=== PATIENT | female | born 1940 | race Hispanic/Latino ===

== ENCOUNTER 2022-12-12 15:11 | Inpatient (IN) | payer OTHER ==
--- OUTSIDE RECORDS SUMMARY | 2022-12-12 15:19 | XMS REPORT | Continuity of Care Document ---
:1940 Author Organization [facility] t Address [address] [facility] [place] [address] [place] [id number] Care Team Providers Name Role Phone SANTO PLEITEZ Primary Care Physician Unavailable FAITH BERRY Attending Clinician Unavailable JOSE HEARN Attending Clinician Unavailable JOSE HEARN Attending Clinician Unavailable Jose Hearn DPM Attending Clinician Rj Aparicio MD Attending Clinician Jose Hearn DPM Attending Clinician Jose Alejandro Seals Attending Clinician Shoaib Phillips MD Attending Clinician Rj Osullivan CRNA Attending Clinician [phone] Omar ADAM, Joshua Sr Attending Clinician [phone] Jose Alejandro Hinkle Attending Clinician [phone] Osman Rowell MD Attending Clinician JANAY SEXTON Attending Clinician Unavailable OSMAN ROWELL Attending Clinician Unavailable GABY PWOELL Attending Clinician Unavailable OSMAN OLVERA Attending Clinician Unavailable JOSE ALEJANDRO SEALS Attending Clinician Unavailable Faith Berry MD Attending Clinician Hayde Attending Clinician Unavailable SHERLY SCHMID Attending Clinician Unavailable BILL HYDE Attending Clinician Unavailable FAITH BERRY Admitting Clinician Unavailable JOSE HEARN Admitting Clinician Unavailable GABY POWELL Admitting Clinician Unavailable Hayde Admitting Clinician Unavailable SHERLY SCHMID Admitting Clinician Unavailable BILL HYDE Admitting Clinician Unavailable Payers Payer Name Policy Type Policy Number Effective Date Expiration Date S katharina MEDICARE A B [id number] 2006 00:00:00 MEDICARE PART A [id number] 2014 \\T\\ B - MEDICARE 00:00:00 GENERIC PPO - [id number] GENERIC PAYOR MEDICARE PART A [id number] 2006 \\T\\ B 00:00:00 Problems Condition Condition Condition Status Onset Resolution Last Treating Co mments Source Name Details Category Date Date Treatment Clinician Date Encounter Encounter Disease Active 2021-08 [facility] for post for post 2-30 Colleg [facility] surgical surgical 00:00: of wound wound 00 Medicin check check e Post-opera Post-opera Disease Active 2021-08 [facility] tive state tive state 2-27 Co llege 00:00: of 00 Medicin e Nonhealing Nonhealing Disease Active 2021-08 [facility] nonsurgica nonsurgica 1-23 Co llege l wound l wound 00:00: of 00 Medicin e Ulcer of Ulcer of Disease Active [facility] r right foot right foot 2-15 [facility]lege with fat with fat 00:00: of layer layer 00 Medicin exposed exposed e Wound Wound Disease Active [facility] eschar of eschar of 2-15 [facility] foot foot 00:00: of 00 Medicin e Hyperlipid Hyperlipid Disease Active 2020-08 [facility] emia emia 1-09 [facility] 00:00: of 00 Medicin e Diabetic Diabetic Disease Recurre 2020-[address] [facility] foot ulcer foot ulcer nce 0-22 [facility] 00:00: Medical 00 Center Pressure Pressure Disease Active [facility] injury of injury of 8-30 [facility] toe of toe of 00:00: of right right 00 Medicin foot, foot, e stage 3 stage 3 Hammertoe Hammertoe Disease Active [facility] of right of right 30 [facility] e foot foot 00:00: of 00 Medicin e Osteoarthr Osteoarthr Disease Active Enrique kennedy itis of itis of 04-26 [place] right foot right foot 00:00: of 00 Medicin e Onychomyco Onychomyco Disease Active [facility]enn[facility] sis sis 04-26 College 00:00: of 00 Medicin e Type 2 Type 2 Disease Active [facility]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 r injury of injury of 04-26 [facility] toe of toe of 00:00: of right right 00 Medicin foot, foot, e stage 3 stage 3 TIA TIA Disease Active [facility] (transient (transient 1-14 [facility] ischemic ischemic 00:00: Medica l attack) attack) 00 Center Hyperkerat Hyperkerat Disease Active Enrique kennedy osis of osis of 03-17 [place] skin skin 00:00: of 00 Medicin e Pressure Pressure Disease Active [facility] ulcer of ulcer of 03-17 [facility] e left foot, left foot, 00:00: of stage 2 stage 2 00 Medicin (HCCode) (HCCode) e Hyperkerat Hyperkerat Disease Active Enrique kennedy osis of osis of 03-17 [place] skin skin 00:00: of 00 Medicin e PAD PAD Disease Active Last (periphera (periphera 11-15 Co llege l artery l artery 00:00: of disease) disease) 00 Medici n e Peripheral Peripheral Disease Active [facility] kenn[facility] vascular vascular 11-15 Colleg e disease disease 00:00: of 00 Medicin e Pressure Pressure Disease Active [facility] ulcer of ulcer of 11-15 Colleg e left foot, left foot, 00:00: of stage 3 stage 3 00 Medicin (HCCode) (HCCode) e Status Status Disease Active 2016-08 [facility] post post 09-24 College partial partial 00:00: of amputation amputation 00 Me dicin of foot, of foot, e left left (HCCode) (HCCode) S/P S/P Disease Active 2016-08 [facility] transmetat transmetat 09-24 Co llmicky arsal arsal 00:00: of amputation amputation 00 Me dicin of foot, of foot, e left left Type 2 Type 2 Disease Active [facility] diabetes diabetes 09-20 Colleg e mellitus mellitus 00:00: of with with 00 Medicin diabetic diabetic e peripheral peripheral angiopathy angiopathy without without gangrene, gangrene, with with long-term long-term current current use of use of insulin insulin Ischemic Ischemic Disease Active Overview: [facility] ulcer ulcer 09-20 [facility] diabetic diabetic 00:00: g of this of foot foot 00 note Medicin (HCCode) (HCCode) might be e different from the original. left lateral foot, lateral plantar angiosome Diabetic Diabetic Disease Recurre [facility] ulcer [facility] ulcer [facility] 04[facility]01 [facility] left foot left foot 00:00: Medi tomasa associated associated 00 Ce nter with type with type 2 diabetes 2 diabetes mellitus mellitus PAD PAD Disease Active [facility] (periphera (periphera 04-01 [facility] l artery l artery 00:00: Medica l disease) disease) 00 Center Stenosis Stenosis Disease Active [facility] of of 04[facility]01 [facility] noncoronar noncoronar 00:00: Me dical y bypass y bypass 00 Center graft, graft, initial initial encounter encounter Hypoglycem Hypoglycem Disease Active 2014-[address] ia ia 09-20 [facility] 00:[facility]: Medical 00 Center 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 Left heel and toes Accelerate Accelerate Disease Active 2014-[address] d d 08-28 [facility] hypertensi hypertensi 00:00: Me dical on on 00 Center Acute Acute Disease Recurre 2014-[address] [facility] kidney kidney nce 0 [facility] insufficie insufficie 00:00: Me dical ncy (RONIT ncy (RONIT 00 Center on CKD) on CKD) Serum Serum Disease Active 2014-[address] [facility] potassium potassium 0-27 [facility] elevated elevated 00:00: Medica l 00 Center Non-healin Non-healin Disease Active 2014-[address] g wound of g wound of 0-27 [facility] lower lower 00:00: Medical extremity extremity 00 Cent er Chronic Chronic Disease Active 2014-[address] osteomyeli osteomyeli 0-27 [facility] tis tis 00:00: Medical 00 [place] Temporal Temporal Disease Active 2014-08 [facility] arteritis arteritis 0-27 [facility] 00:00: Medical 00 [place] Critical Critical Disease Active [facility] lower limb lower limb 7-31 [facility] ischemia ischemia 00:00: Medica l 00 [place] CKD CKD Disease Active [facility] (chronic (chronic 3-22 [facility] kidney kidney 00:00: Medical disease) disease) 00 Center Peripheral Peripheral Disease Active [facility] vascular vascular 3-18 [facility] disease disease 00:00: Medical 00 [place] Varicose Varicose Disease Active [facility] veins veins [facility] [facility] Hypertensi Hypertensi Disease Active [facility] on on [facility] Essential Essential Disease Active [facility] hypertensi hypertensi Co llege on on of Medicin e Diabetes Diabetes Disease Recurre [facility] St mellitus mellitus [facility] Arthritis Arthritis Disease Active [facility] Allergies, Adverse Reactions, Alerts Allergy Allergy Status Severity Reaction(s) Onset Inactive Treating Comm ents Source Name Type Date Date Clinician PENICILL Drug Active High SOB 2014-08 [facility] INS Class 0-13 ity of 00:00: [place] 00 Medical Branch SULFA Drug Active High SOB 2014-08 Univers (SULFONA Class 0-13 ity of MIDE 00:00: [place] ANTIBIOT 00 Medical ICS) Branch SULFA Allergy Active High Sob [facility] (SULFONA 3-18 [facility] MIDE 00:00: Medical ANTIBIOT 00 Center ICS) PENICILL Allergy Active High Sob [facility] INS 3-18 [facility] 00:00: Medical 00 [place] Penicill Drug Active Shortness Of [facility] ins Allergy Breath 3-18 [facility] 00:00: Medical 00 Center Sulfa Drug Active Shortness Of [facility] (Sulfona Allergy Breath 3-18 [facility] mide 00:00: Medical Antibiot 00 Center ics) Sulfa Propensi Active [facility] Antibiot ty to 3-10 College ics adverse 00:00: of reaction 00 Medicin s to e drug Penicill Propensi Active Shortness Of [facility] ins ty to Breath 3-10 College adverse 00:00: of reaction 00 Medicin s to e drug Social History Social Habit Start Date Stop Date Quantity Comments Source History [facility] Alcohol Frequency of Medi cine History [facility] Alcohol Std Drinks of Med icine History [facility] Alcohol Binge of Medicine Alcohol intake 2022-11-29 2022-11-29 Ex-drinker [facility] 00:00:00 00:00:00 (finding) Medical Center Exposure to 2022-11-14 2022-11-[address] [facility] SARS-CoV-2 (event) 00:00:00 08:31:00 [facility] Tobacco use and 2022-11-21 2022-11-[address] [facility] exposure 00:00:00 00:00:00 non-user [facility] Alcohol Comment 2013-11-04 2013-11-04 social drinker [facility] 00:00:00 00:00:00 of Medicine Sex Assigned At [address] [facility] 00:00:00 00:00:00 [facility] Center Smoking Status Start Date Stop Date Source Never smoked tobacco [facility] Medications Ordered Filled Start Stop Current Ordering Indication Dosage Frequency Signature Comments Components Source Medication Medication Date Date Medication? Clinician (SIG) Name Name latanoprost Yes 1[drp] QD Place [address] (XALATAN) 3-30 drop into [facility] 0.005 % 13:00: both eyes Medic al ophthalmic 31 nightly. Cente r solution lisinopril Yes 10mg QD Take 1 [facility] (PRINIVIL,Z 3-30 tablet (10 [facility] ESTRIL) 10 13:00: mg total) Me dical MG tablet 31 by mouth Center in the morning. atorvastati Yes 40mg QD Take [address] [facility] n (LIPITOR) 3-30 tablet (40 [facility] 40 MG 13:00: mg total) Medical tablet 31 by mouth Center nightly. amLODIPine 0 Yes 5mg QD Take 1 [facility] (NORVASC) 5 3-30 tablet (5 [facility] MG tablet 13:00: mg total) Med ical 31 by mouth Center in the morning. acetaminoph Yes 650mg Take [address] [facility] [facility] en 3-30 tablets [facility] (TYLENOL) 13:00: (650 mg Medic al 325 MG 31 total) by Center tablet mouth every 6 (six) hours as needed for Pain. calcium Yes Take by [facility] St carb/magnes 3-30 mouth as [facility] ium hydrox 13:00: needed . Med ical (ROLAIDS 31 Center ORAL) gabapentin Yes 100mg Q.5D Take [address] [facility] (NEURONTIN) 3-30 capsule [facility] 100 MG 13:00: (100 mg Medical capsule 31 total) by Center mouth in the morning and 1 capsule (100 mg total) before bedtime. guaiFENesin Yes 200mg Take [address] (ROBITUSSIN 3-30 mLs (200 [facility] ) 100 mg/5 13:00: mg total) Me dical mL syrup 31 by mouth 3 Cente r (three) times daily as needed for Cough. losartan Yes QD Take by [facility] (COZAAR) 50 3-30 mouth [facility] MG tablet 13:00: daily. Medica l 31 Center miscellaneo Yes Dispense [facility] us medical 3-30 and apply [facility] supply Misc 00:00: post op Med ical 00 shoe right [place] Jose Hearn DPM. losartan Yes 50mg Take 1 Last (COZAAR) 50 3-13 Tablet by Col lege MG tablet 10:02: mouth of 12 daily. Medicin e losartan Yes Take by Last (COZAAR) 25 3-13 mouth. Colleg e MG tablet 10:02: of 12 Medicin e losartan 2021-08 Yes 50mg Take 50 mg [facility] (COZAAR) 50 2-20 by mouth [facility] MG tablet 15:01: daily. of Medicin e losartan 2021-08 Yes Take by [facility] (COZAAR) 25 2-20 mouth. Colleg e MG tablet 15:01: of 27 Medicin e losartan 2021-08 Yes 50mg Take 50 mg [facility] (COZAAR) 50 2-20 by mouth [facility] MG tablet 15:01: daily. of 27 Medicin e losartan 2021-08 Yes Take by Last (COZAAR) 25 2-20 mouth. Colleg e MG tablet 15:01: of 27 Medicin e clindamycin 2021-08 Yes 300mg Take 1 Last (CLEOCIN) 2-09 capsule by [facility] 300 MG 00:00: mouth 3 of capsule 00 times Medicin daily. e Take 1 capsule by mouth three times a day for seven days minocycline 2021-08 Yes [id number] Take one [facility] (DYNACIN) 2-09 tablet College 100 MG 00:00: twice a of tablet 00 day for 10 Medicin days e clindamycin 2021-08 Yes 300mg Take 1 [facility] (CLEOCIN) 2-09 capsule by [facility] 300 MG 00:00: mouth 3 of capsule 00 times Medicin daily. e Take 1 capsule by mouth three times a day for seven days minocycline 2021-08 Yes Take one [facility] (DYNACIN) 2-09 tablet College 100 MG 00:00: twice a of tablet 00 day for 10 Medicin days e clindamycin 2021-08 Yes [id number] 300mg Take 1 Last (CLEOCIN) 2-09 capsule by [facility] 300 MG 00:00: mouth 3 of capsule 00 times Medicin daily. e Take 1 capsule by mouth three times a day for seven days minocycline 2021-08 Yes Take one Last (DYNACIN) 2-09 tablet College 100 MG 00:00: twice a of tablet 00 day for 10 Medicin days e clindamycin 2021-08 Yes Take one Last (CLEOCIN) 2-02 tablet College 300 MG 00:00: three of capsule 00 times Medicin daily for e ten days tramadol 2021-08 Yes [id number] 1{tbl} Take 1 [facility] (ULTRAM) 50 2-02 Tablet by Col [facility] MG tablet 00:00: mouth of 00 every 8 Medicin hours as e needed for Pain. clindamycin 2021-08 Yes Take one [facility] (CLEOCIN) 2-02 tablet College 300 MG 00:00: three of capsule 00 times Medicin daily for e ten days tramadol 2021-08 Yes [id number] 1{tbl} Take 1 [facility] (ULTRAM) 50 2-02 Tablet by Col [facility] MG tablet 00:00: mouth of 00 every 8 Medicin hours as e needed for Pain. clindamycin 2021-08 Yes [id number] Take one Last (CLEOCIN) 2-02 tablet College 300 MG 00:00: three of capsule 00 times Medicin daily for e ten days tramadol 2021-08 Yes [id number] 1{tbl} Take 1 [facility] (ULTRAM) 50 2-02 Tablet by Col [facility] MG tablet 00:00: mouth of 00 every 8 Medicin hours as e needed for Pain. losartan 2021-08 Yes 50mg Take 50 mg [facility] (COZAAR) 50 1-22 by mouth [facility] MG tablet 14:46: daily. of 43 Medicin e losartan 2021-08 Yes 50mg Take 50 mg [place] [facility] (COZAAR) 50 1-22 by mouth [facility] MG tablet 14:46: daily. of 43 Medicin e losartan 2021-08 Yes 50mg Take 50 mg [place] [facility] (COZAAR) 50 1-22 by mouth [facility] MG tablet 14:46: daily. of 43 Medicin e clindamycin 2021-08 Yes [id number] Take one Last (CLEOCIN) 1-11 tablet College 300 MG 00:00: three of capsule 00 times Medicin daily for e ten days clindamycin 2021-08 Yes [id number] Take one Last (CLEOCIN) 1-11 tablet College 300 MG 00:00: three of capsule 00 times Medicin daily for e ten days clindamycin 2021-08 Yes [id number] Take one Last (CLEOCIN) 1-11 tablet College 300 MG 00:00: three of capsule 00 times Medicin daily for e ten days losartan 2021-08 Yes 50mg Take 50 mg [place] (COZAAR) 50 0-21 by mouth [facility] MG tablet 14:16: daily. of 49 Medicin e losartan Yes 50mg Take 50 mg [place] [facility] (COZAAR) 50 9-21 by mouth [facility] MG tablet 13:58: daily. of 29 Medicin e mupirocin 2022-0 Yes [id number] Apply 2 [facility] (BACTROBAN) 9-09 grams to [facility] 2 % 00:00: wound of ointment 00 daily Medicin e mupirocin 2022-0 Yes [id number] Apply 2 Last (BACTROBAN) 9-09 grams to [facility] 2 % 00:00: wound of ointment 00 daily Medicin e mupirocin 2022-0 Yes [id number] Apply 2 Last (BACTROBAN) 9-09 grams to [facility] 2 % 00:00: wound of ointment 00 daily Medicin e mupirocin 2022-0 Yes [id number] Apply 2 Last (BACTROBAN) 9-09 grams to [facility] 2 % 00:00: wound of ointment 00 daily Medicin e mupirocin 2022-0 Yes [id number] Apply 2 [facility] (BACTROBAN) 9-09 grams to [facility] 2 % 00:00: wound of ointment 00 daily Medicin e mupirocin 2022-0 Yes [id number] Apply 2 Last (BACTROBAN) 9-09 grams to [facility] 2 % 00:00: wound of ointment 00 daily Medicin e mupirocin 2022-0 Yes [id number] Apply 2 [facility] (BACTROBAN) 9-09 grams to [facility] 2 % 00:00: wound of ointment 00 daily Medicin e mupirocin 2022-0 Yes [id number] Apply 2 [facility] (BACTROBAN) 9-09 grams to [facility] 2 % 00:00: wound of ointment 00 daily Medicin e mupirocin 2022-0 Yes [id number] Apply 1 [facility] calcium 8-26 gram to College (BACTROBAN) 00:00: wounds of 2 % cream 00 daily Medicin e mupirocin 2022-0 Yes [id number] Apply 1 [facility] calcium 8-26 gram to College (BACTROBAN) 00:00: wounds of 2 % cream 00 daily Medicin e mupirocin 2022-0 Yes [id number] Apply 1 [facility] calcium 8-26 gram to College (BACTROBAN) 00:00: wounds of 2 % cream 00 daily Medicin e mupirocin 2021-0 Yes [id number] Apply 1 Last calcium 8-26 gram to College (BACTROBAN) 00:00: wounds of 2 % cream 00 daily Medicin e mupirocin 2021-0 Yes [id number] Apply 1 [facility] calcium 8-26 gram to College (BACTROBAN) 00:00: wounds of 2 % cream 00 daily Medicin e mupirocin 2021-0 Yes [id number] Apply 1 [facility] calcium 8-26 gram to College (BACTROBAN) 00:00: wounds of 2 % cream 00 daily Medicin e mupirocin 2021-0 Yes [id number] Apply 1 Last calcium 8-26 gram to College (BACTROBAN) 00:00: wounds of 2 % cream 00 daily Medicin e mupirocin 2021-0 Yes [id number] Apply 1 [facility] calcium 8-26 gram to College (BACTROBAN) 00:00: wounds of 2 % cream 00 daily Medicin e losartan 0 Yes 50mg Take 50 mg [facility] (COZAAR) 50 7-05 by mouth [facility] MG tablet 16:21: daily. of 50 Medicin e losartan 2021-0 Yes 50mg Take 50 mg [place] (COZAAR) 50 7-05 by mouth [facility] MG tablet 16:21: daily. of 50 Medicin e losartan 2021-0 Yes 50mg Take 50 mg [facility] (COZAAR) 50 5-03 by mouth [facility] MG tablet 13:24: daily. of 12 Medicin e losartan 2021-0 Yes 50mg Take 50 mg [place] (COZAAR) 50 3-22 by mouth [facility] MG tablet 13:49: daily. of 06 Medicin e collagenase 2021-0 Yes [id number] Please [facility] 250 UNIT/GM 3-22 apply to [facility] ointment 00:00: right of 00 lateral Medicin foot daily e collagenase 2021-0 Yes [id number] Apply to [facility] 250 UNIT/GM 3-22 affected [facility] ointment 00:00: wound of 00 daily, Medicin Wound e measuremen t 2.5 cm X 2.0 cm collagenase 2021-0 Yes [id number] Please Last 250 UNIT/GM 3-22 apply to [facility] ointment 00:00: right of 00 lateral Medicin foot daily e collagenase 2022-0 Yes [id number] Please Last 250 UNIT/GM 3-22 apply to [facility] ointment 00:00: right of 00 lateral Medicin foot daily e collagenase 2022-0 Yes [id number] Please Last 250 UNIT/GM 3-22 apply to [facility] ointment 00:00: right of 00 lateral Medicin foot daily e collagenase 2022-0 Yes [id number] Please Last 250 UNIT/GM 3-22 apply to [facility] ointment 00:00: right of 00 lateral Medicin foot daily e collagenase 2022-0 Yes [id number] Please [facility] 250 UNIT/GM 3-22 apply to [facility] ointment 00:00: right of 00 lateral Medicin foot daily e collagenase 2022-0 Yes [id number] Please [facility] 250 UNIT/GM 3-22 apply to [facility] ointment 00:00: right of 00 lateral Medicin foot daily e collagenase 2022-0 Yes [id number] Please [facility] 250 UNIT/GM 3-22 apply to [facility] ointment 00:00: right of 00 lateral Medicin foot daily e collagenase 2022-0 Yes [id number] Please [facility] 250 UNIT/GM 3-22 apply to [facility] ointment 00:00: right of 00 lateral Medicin foot daily e collagenase 2022-0 Yes [id number] Please [facility] 250 UNIT/GM 3-22 apply to [facility] ointment 00:00: right of 00 lateral Medicin foot daily e collagenase 2022-0 Yes [id number] Please [facility] 250 UNIT/GM 3-22 apply to [facility] ointment 00:00: right of 00 lateral Medicin foot daily e collagenase 2022-0 Yes [id number] Please Last 250 UNIT/GM 3-22 apply to [facility] ointment 00:00: right of 00 lateral Medicin foot daily e collagenase 2022-0 202- No [id number] Apply to [facility] 250 UNIT/GM 3-22 -03 affected [facility] ointment 00:00: 00:00 wound of 00 :00 daily, Medicin Wound e measuremen t 2.5 cm X 2.0 cm clindamycin 2021-0 202- No [id number] 300mg Take 1 [facility] (CLEOCIN) 3- 04-02 capsule by [facility] 300 MG 00:00: 04:59 mouth 3 of capsule 00 :00 times Medicin daily for e 10 days. losartan Yes 50mg Take 50 mg [facility] (COZAAR) 50 2-09 by mouth [facility] MG tablet 13:20: daily. of 39 Medicin e losartan Yes 50mg Take 50 mg [place] [facility] (COZAAR) 50 -27 by mouth [facility] MG tablet 09:47: daily. of 59 Medicin e ciprofloxac 2021- No 500mg Take 500 Last in (CIPRO) 09-23 01-27 mg by [place] 500 MG/5ML 09:47: 00:00 mouth two o f (10%) 52 :00 times Medicin suspension daily. e collagenase Yes Apply to [facility] 250 UNIT/GM 09-23 affected [facility] ointment 00:00: wound of 00 daily, Medicin Wound e measuremen t 2.5 cm X 2.0 cm collagenase Yes Apply to [facility] 250 UNIT/GM 27 affected [facility] ointment 00:00: wound of 00 daily, Medicin Wound e measuremen t 2.5 cm X 2.0 cm collagenase 2021- No Apply to [facility] 250 UNIT/GM 27 - affected [facility] ointment 00:00: 00:00 wound of 00 :00 daily, Medicin Wound e measuremen t 2.5 cm X 2.0 cm clindamycin 2021- No [id number] 300mg Take 1 [facility] (CLEOCIN) - 02-07 [id number] capsule by [facility] 300 MG 00:00: 05:59 mouth 3 of capsule 00 :00 times Medicin daily for e 10 days. ciprofloxac 2020-08 Yes 500mg Take 500 [facility] in (CIPRO) 2-07 mg by [place] 500 MG/5ML 13:20: mouth two of (10%) 02 times Medicin suspension daily. e losartan 2020-08 Yes 50mg Take 50 mg [place] (COZAAR) 50 2-07 by mouth [facility] MG tablet 13:16: daily. of 36 Medicin e losartan 2020-08 Yes 50mg Take 50 mg [place] (COZAAR) 50 09-19 by mouth [facility] MG tablet 15:43: daily. of 45 Medicin e lisinopril 2020-08- No [id number] 10mg Take 10 mg Last (PRINIVIL, 09-19 by mouth [facility] ZESTRIL) 10 15:43: 00:00 daily. of MG tablet 36 :00 Medicin e ciprofloxac 2020-08- No [id number] 500mg Take 1 [facility] in (CIPRO) 09-19 1204 Tablet by [facility] 500 MG 00:00: 05:59 mouth two of tablet 00 :00 times Medicin daily for e 10 days. mupirocin 2020-08 Yes [id number] Apply to [facility] (BACTROBAN) 1-15 right foot Co llege 2 % 00:00: daily with of ointment 00 wound care Medic in e mupirocin 2020-08 Yes [id number] Apply to [facility] (BACTROBAN) 1-15 right foot Co llege 2 % 00:00: daily with of ointment 00 wound care Medic in e mupirocin 2020-08 Yes [id number] Apply to [facility] (BACTROBAN) 1-15 right foot Co llege 2 % 00:00: daily with of ointment 00 wound care Medic in e mupirocin 2020-08- No [id number] Apply to [facility] (BACTROBAN) 1 02-09 right foot C ollege 2 % 00:00: 00:00 daily with of ointment 00 :00 wound care Medic in e mupirocin 2020-08- No [id number] 1{appli [facility] (BACTROBAN) 09-05 11-10 cation} [facility] 2 % 22:45: 10:44 of ointment 1 00 :00 Medicin application e lisinopril 2020-08 Yes [id number] 10mg Take 10 mg Last (PRINIVIL, 09-05 by mouth Colle ge ZESTRIL) 10 15:19: daily. of MG tablet 05 Medicin e lisinopril 2020-08 Yes [id number] 10mg Take 10 mg [facility] (PRINIVIL, 09 by mouth [facility] ZESTRIL) 10 15:19: daily. of MG tablet 05 Medicin e lisinopril 2020-08 Yes [id number] 10mg Take 10 mg Last (PRINIVIL, 09 by mouth [facility] ZESTRIL) 10 15:19: daily. of MG tablet 05 Medicin e aspirin 81 2020-08 Yes 81mg QD Take [address] mg Cap 0-22 by mouth [facility]: daily. [address] Aspirin 2020-08 Yes 81mg Take 81 mg [facility] (VAZALORE) 0-22 by mouth. [facility] 81 MG CAPS 00:00: of Medicin e Aspirin 2020-08 Yes 81mg Take 81 mg [facility] (VAZALORE) 0-22 by mouth. [facility] 81 MG CAPS 00:00: of Medicin e Aspirin 2020-08 Yes 81mg Take 81 mg [facility] (VAZALORE) 0-22 by mouth. [facility] 81 MG CAPS 00:00: of 00 Medicin e Aspirin 2020-08 Yes 81mg Take 81 mg [facility] (VAZALORE) 0-22 by mouth. [facility] 81 MG CAPS 00:00: of 00 Medicin e Aspirin 2020-08 Yes 81mg Take 81 mg [facility] (VAZALORE) 0-22 by mouth. [facility] 81 MG CAPS 00:00: of 00 Medicin e Aspirin 2020-08 Yes 81mg Take 81 mg [facility] (VAZALORE) 0-22 by mouth. [facility] 81 MG CAPS 00:00: of 00 Medicin e Aspirin 2020-08 Yes 81mg Take 81 mg [facility] (VAZALORE) 0-22 by mouth. [facility] 81 MG CAPS 00:00: of 00 Medicin e Aspirin 2020-08 Yes 81mg Take 81 mg [facility] (VAZALORE) 0-22 by mouth. [facility] 81 MG CAPS 00:00: of 00 Medicin e Aspirin 2020-08 Yes 81mg Take 81 mg [facility] (VAZALORE) 0-22 by mouth. [facility] 81 MG CAPS 00:00: of 00 Medicin e Aspirin 2020-08 Yes 81mg Take 81 mg [facility] (VAZALORE) 0-22 by mouth. [facility] 81 MG CAPS 00:00: of 00 Medicin e Aspirin 2020-08 Yes 81mg Take 81 mg [facility] (VAZALORE) 0-22 by mouth. [facility] 81 MG CAPS 00:00: of Medicin e Aspirin 2020-08 Yes 81mg Take 81 mg [facility] (VAZALORE) 0-22 by mouth. [facility] 81 MG CAPS 00:00: of Medicin e Aspirin 2020-08 Yes 81mg Take 81 mg [facility] (VAZALORE) 0-22 by mouth. [facility] 81 MG CAPS 00:00: of Medicin e Aspirin 2020-08 Yes 81mg Take 81 mg [facility] (VAZALORE) 0-22 by mouth. [facility] 81 MG CAPS 00:00: of Medicin e Aspirin 2020-08 Yes 81mg Take 81 mg [facility] (VAZALORE) 0-22 by mouth. [facility] 81 MG CAPS 00:00: of Medicin e Aspirin 2020-08 Yes 81mg Take 81 mg [facility] (VAZALORE) 0-22 by mouth. [facility] 81 MG CAPS 00:00: of Medicin e Aspirin 2020-08 Yes 81mg Take 81 mg [facility] (VAZALORE) 0-22 by mouth. [facility] 81 MG CAPS 00:00: of Medicin e Aspirin 2020-08 Yes 81mg Take 81 mg [facility] (VAZALORE) 0-22 by mouth. [facility] 81 MG CAPS 00:00: of Medicin e Aspirin 2020-08 Yes 81mg Take 81 mg [facility] (VAZALORE) 0-22 by mouth. [facility] 81 MG CAPS 00:00: of 00 Medicin e lisinopril Yes [id number] 10mg Take 10 mg Last (PRINIVIL, 04-23 by mouth [facility] ZESTRIL) 10 10:24: daily. of MG tablet Medicin e Insulin 2020- No [id number] Inject [facility] Detemir 04-23 into [facility] (LEVEMIR 10:24: 00:00 skin. of ID) 08 :00 Medicin e collagenase 2021-0 Yes Apply to [facility] 250 UNIT/GM 8-27 affected [facility] ointment 00:00: wound of 00 daily, Medicin Wound e measuremen t 1.0cm X 1.5cm collagenase 2021-0 Yes Apply to [facility] 250 UNIT/GM 8-27 affected [facility] ointment 00:00: wound of 00 daily, Medicin Wound e measuremen t 1.0cm X 1.5cm collagenase 202-0 Yes Apply to [facility] 250 UNIT/GM 8-27 affected [facility] ointment 00:00: wound of 00 daily, Medicin Wound e measuremen t 1.0cm X 1.5cm collagenase 2020-0 Yes Apply to [facility] 250 UNIT/GM 8-27 affected [facility] ointment 00:00: wound of 00 daily, Medicin Wound e measuremen t 1.0cm X 1.5cm collagenase 2021-0 Yes Apply to [facility] 250 UNIT/GM 8-27 affected [facility] ointment 00:00: wound of 00 daily, Medicin Wound e measuremen t 1.0cm X 1.5cm collagenase 2020-0 Yes Apply to [facility] 250 UNIT/GM 8-27 affected [facility] ointment 00:00: wound of 00 daily, Medicin Wound e measuremen t 1.0cm X 1.5cm collagenase 1-0 2021- No Apply to [facility] 250 UNIT/GM 8-27 -27 affected [facility] ointment 00:00: 00:00 wound of 00 :00 daily, Medicin Wound e measuremen t 1.0cm X 1.5cm lisinopril 2020-0 Yes [id number] 10mg Take 10 mg Last (PRINIVIL, 6-30 by mouth [facility] ZESTR[facility]) 10 10:07: daily. of MG tablet 00 Medicin e Insulin 2020-0 Yes [id number] Inject [facility] Detemir 6-30 into [facility] (LEVEMIR 10:07: skin. of [place]) 00 Medicin e lisinopril 2020-0 Yes [id number] 10mg Take 10 mg [facility] (PRINIVIL, 3-31 by mouth [facility] ZESTRIL) 10 13:46: daily. of MG tablet 30 Medicin e Insulin Yes [id number] Inject [facility] Detemir 3-31 into [facility] (LEVEMIR 13:46: skin. of ID) 30 Medicin e latanoprost 2020- No [id number] 1[drp] 1 Drop [facility] (XALATAN) 11-25 every College 0.005 % 13:46: 00:00 evening. of ophthalmic 30 :00 Medicin solution e guaifenesin 2020- No 200mg Take 200 [facility] (ROBITUSSIN 11-25 mg by Colleg e ) 100 13:46: 00:00 mouth. of MG/5ML 29 :00 Medicin syrup e clindamycin 2020- No TAKE 1 [facility] (CLEOCIN) 10-23 CAPSULE BY [facility]ge 300 MG 00:00: 00:00 MOUTH of capsule 00 :00 THREE Medicin TIMES A e DAY ondansetron 2020- No DISSOLVE 1 [facility] (ZOFRAN-ODT 10-23 TABLET BY Co kailey ) 8 mg 00:00: 00:00 MOUTH of disintegrat 00 :00 TWICE A Medic in ing tablet DAY e NEEDED FOR NAUSEA lisinopril 2019-08 Yes [id number] 10mg Take 10 mg Last (PRINIVIL, 0-15 by mouth [facility] ZESTRIL) 10 20:33: daily. of MG tablet 27 Medicin e latanoprost 2019-08 Yes [id number] 1[drp] 1 Drop [facility] (XALATAN) 0-15 every College 0.005 % 20:33: evening. of ophthalmic 27 Medicin solution e Insulin 2019-08 Yes [id number] Inject [facility] Detemir 0-15 into [facility] (LEVEMIR 20:33: skin. of ID) 27 Medicin e gabapentin Yes TAKE 2 [facility] (NEURONTIN) 8-24 CAPSULES [facility] 100 MG 00:00: BY MOUTH of capsule 00 TWICE A Medicin DAY e gabapentin Yes TAKE 2 [facility] (NEURONTIN) 8-24 CAPSULES [facility] 100 MG 00:00: BY MOUTH of capsule 00 TWICE A Medicin DAY e gabapentin Yes TAKE 2 [facility] (NEURONTIN) 8-24 CAPSULES [facility] 100 MG 00:00: BY MOUTH of capsule 00 TWICE A Medicin DAY e gabapentin 2020-0 Yes TAKE 2 [facility] (NEURONTIN) 8-24 CAPSULES [facility] 100 MG 00:00: BY MOUTH of capsule 00 TWICE A Medicin DAY e gabapentin 2020-0 Yes TAKE 2 [facility] (NEURONTIN) 8-24 CAPSULES [facility] 100 MG 00:00: BY MOUTH of capsule 00 TWICE A Medicin DAY e gabapentin 2020-0 Yes TAKE 2 [facility] (NEURONTIN) 8-24 CAPSULES [facility] 100 MG 00:00: BY MOUTH of capsule 00 TWICE A Medicin DAY e gabapentin 2020-0 Yes TAKE 2 [facility] (NEURONTIN) 8-24 CAPSULES [facility] 100 MG 00:00: BY MOUTH of capsule 00 TWICE A Medicin DAY e gabapentin 2020-0 Yes TAKE 2 [facility] (NEURONTIN) 8-24 CAPSULES [facility] 100 MG 00:00: BY MOUTH of capsule 00 TWICE A Medicin DAY e gabapentin 2020-0 Yes TAKE 2 [facility] (NEURONTIN) 8-24 CAPSULES [facility] 100 MG 00:00: BY MOUTH of capsule 00 TWICE A Medicin DAY e gabapentin 2020-0 Yes 100mg 100 mg two [facility] (NEURONTIN) 8-24 times College 100 MG 00:00: daily. of capsule 00 Medicin e gabapentin 2020-0 Yes 100mg 100 mg two [facility] (NEURONTIN) 8-24 times College 100 MG 00:00: daily. of capsule 00 Medicin e gabapentin 2020-0 Yes 100mg 100 mg two [facility] (NEURONTIN) 8-24 times College 100 MG 00:00: daily. of capsule 00 Medicin e gabapentin 2020-0 Yes 100mg 100 mg two [facility] (NEURONTIN) 8-24 times College 100 MG 00:00: daily. of capsule 00 Medicin e gabapentin 2020-0 Yes 100mg 100 mg two [facility] (NEURONTIN) 8-24 times College 100 MG 00:00: daily. of capsule 00 Medicin e gabapentin 2020-0 Yes 100mg 100 mg two [facility] (NEURONTIN) 8-24 times College 100 MG 00:00: daily. of capsule 00 Medicin e gabapentin 2020-0 Yes 100mg 100 mg two Last (NEURONTIN) 8-24 times College 100 MG 00:00: daily. of capsule 00 Medicin e gabapentin 2020-0 Yes 100mg 100 mg two [facility] (NEURONTIN) 8-24 times College 100 MG 00:00: daily. of capsule 00 Medicin e gabapentin 2020-0 Yes 100mg 100 mg two Last (NEURONTIN) 8-24 times College 100 MG 00:00: daily. of capsule 00 Medicin e gabapentin 2020-0 Yes 100mg 100 mg two Last (NEURONTIN) 8-24 times College 100 MG 00:00: daily. of capsule 00 Medicin e gabapentin 2020-0 Yes 100mg 100 mg two [facility] (NEURONTIN) 8-24 times College 100 MG 00:00: daily. of capsule 00 Medicin e gabapentin 2020-0 Yes 100mg 100 mg two [facility] (NEURONTIN) 8-24 times College 100 MG 00:00: daily. of capsule 00 Medicin e gabapentin 2020-0 Yes 100mg 100 mg two Last (NEURONTIN) 8-24 times College 100 MG 00:00: daily. of capsule 00 Medicin e gabapentin 2020-0 Yes 100mg 1 capsule [facility] (NEURONTIN) 824 two times [facility] 100 MG 00:00: daily. of capsule 00 Medicin e AMLODIPINE 2019-0 2020- No Take by [facility] BESYLATE OR 04-08-12 mouth. [facility]le ge 15:45: 00:00 of 34 :00 Medicin e ATORVASTATI 2019-0 2020- No Take by [facility] N CALCIUM 04-08-12 mouth. College OR 15:45: 00:00 of 31 :00 Medicin e lisinopril 2019-0 Yes [id number] 10mg Take 10 mg [facility] (PRINIVIL, 1-02 by mouth [facility] ZESTRIL) 10 15:00: daily. of MG tablet 07 Medicin e latanoprost 2019-0 Yes [id number] 1[drp] 1 Drop [facility] (XALATAN) 1-02 every College 0.005 % 15:00: evening. of ophthalmic 07 Medicin solution e Insulin 2019-0 Yes [id number] Inject [facility] Detemir -02 into [facility] (LEVEMIR 15:00: skin. of [place]) 07 Medicin e lisinopril 2018- Yes [id number] 10mg Take 10 mg Last (PRINIVIL, 0-03 by mouth [facility] ZESTRIL) 10 17:05: daily. of MG tablet 58 Medicin e latanoprost 2018-08 Yes [id number] 1[drp] 1 Drop Last (XALATAN) 0-03 every College 0.005 % 17:05: evening. of ophthalmic 58 Medicin solution e Insulin 2018-08 Yes [id number] Inject [facility] Detemir 0-03 into [facility] (LEVEMIR 17:05: skin. of [place]) 58 Medicin e ATORVASTATI 2018-08 Yes Take by [place] [facility] N CALCIUM 0-03 mouth. College OR 17:05: of 58 Medicin e AMLODIPINE 2018-08 Yes Take by [facility] BESYLATE OR 0-03 mouth. Colleg e 17:05: of 58 Medicin e ciprofloxac 2018-08 Yes Apply 4 [facility] in-dexameth 0-03 drops in [facility] asone 00:00: right ear of (CIPRODEX) 00 twice a Medici n otic day for 10 e suspension days. ciprofloxac 2018-08 2020- No Apply 4 [facility] in-dexameth 0-03 08-12 drops in [facility] asone 00:00: 00:00 right ear of (CIPRODEX) 00 :00 twice a Medici n otic day for 10 e suspension days. lisinopril Yes [id number] 10mg Take 10 mg [facility] (PRINIVIL, 9-12 by mouth [facility] ZESTRIL) 10 16:41: daily. of MG tablet 50 Medicin e latanoprost Yes [id number] 1[drp] 1 Drop Last (XALATAN) 9-12 every College 0.005 % 16:41: evening. of ophthalmic 50 Medicin solution e Insulin Yes [id number] Inject [facility] Detemir 9-12 into the [facility] (LEVEMIR 16:41: skin. of SC) 50 Medicin e ATORVASTATI Yes Take by [facility] N CALCIUM 9-12 mouth. College OR 16:41: of 50 Medicin e AMLODIPINE Yes Take by [facility] BESYLATE OR 9-12 mouth. Colleg e 16:41: of 50 Medicin e amlodipine Yes TK 1 T PO [facility] ([facility] 5[place]21 [facility] [place] 00:00: of tablet 00 Medicin e amlodipine Yes TK 1 T [facility] [place] 00:00: of tablet 00 Medicin e amlodipine Yes TK 1 T PO [facility]15 [facility] [place] 00:00: of tablet 00 Medicin e amlodipine 2020- No TK 1 T PO [facility] ([facility]) 01-15 08 [facility] [place] 00:00: 00:00 of tablet 00 :00 Medicin e lisinopril 2017-08 Yes [id number] 10mg Take 10 mg [facility] (PRINIVIL, 0-30 by mouth [facility] ZESTRIL) 10 18:08: daily. of MG tablet 24 Medicin e latanoprost 2017-08 Yes [id number] 1[drp] 1 Drop [facility] (XALATAN) 0-30 every College 0.005 % 18:08: evening. of ophthalmic 24 Medicin solution e Insulin 2017-08 Yes [id number] Inject [facility] Detemir 0-30 into the [facility] (LEVEMIR 18:08: skin. of [place]) 24 Medicin e ATORVASTATI 2017-08 Yes Take by [place] [facility] N CALCIUM 0-30 mouth. College OR 18:08: of 24 Medicin e AMLODIPINE 2017-08 Yes Take by [facility] BESYLATE OR 0-30 mouth. Colleg e 18:08: of 24 Medicin e ciprofloxac Yes TAKE 1 [facility] in (CIPRO) 02-26 TABLET(S) [facility] 500 MG 00:00: BY ORAL of tablet 00 ROUTE , Medicin EVERY 12 e HOURS , FOR 10 DAYS ciprofloxac Yes TAKE 1 [facility] in (CIPRO) 02-26 TABLET(S) [facility] 500 MG 00:00: BY ORAL of tablet 00 ROUTE , Medicin EVERY 12 e HOURS , FOR 10 DAYS ciprofloxac Yes TAKE 1 [facility] in (CIPRO) 02-26 TABLET(S) [facility] 500 MG 00:00: BY ORAL of tablet 00 ROUTE , Medicin EVERY 12 e HOURS , FOR 10 DAYS ciprofloxac 2020- No TAKE 1 [facility] in (CIPRO) 7-02 08-12 TABLET(S) [facility] 500 MG 00:00: 00:00 BY ORAL of tablet 00 :00 ROUTE , Medicin EVERY 12 e HOURS , FOR 10 DAYS mupirocin Yes Apply to [facility] (BACTROBAN) 16 affected [facility] 2 % 00:00: area daily of ointment 00 Medicin e mupirocin Yes Apply to [facility] (BACTROBAN) 01-10 affected [facility] 2 % 00:00: area daily of ointment 00 Medicin e mupirocin Yes Apply to [facility] (BACTROBAN) 01-10 affected [facility] 2 % 00:00: area daily of ointment 00 Medicin e mupirocin 2020- No Apply to [facility] (BACTROBAN) 01-10 affected [facility] 2 % 00:00: 00:00 area daily of ointment 00 :00 Medicin e amlodipine 0 Yes [facility] ([facility]) 5 3-08 College MG tablet 00:00: of 00 Medicin e atorvastati 2017-0 Yes [facility] n (LIPITOR) 3-08 College 40 MG 00:00: of tablet 00 Medicin e amlodipine 2017-0 Yes [facility] ([facility]) 5 3-08 College MG tablet 00:00: of 00 Medicin e atorvastati 2018-0 Yes [facility] n (LIPITOR) 3-08 College 40 MG 00:00: of tablet 00 Medicin e amlodipine 2018-0 Yes [facility] (NORVAS) 5 3-08 College MG tablet 00:00: of 00 Medicin e atorvastati 2018-0 Yes [facility] n (LIPITOR) 3-08 College 40 MG 00:00: of tablet 00 Medicin e amlodipine 2018-0 Yes [facility] (NORVASC) 5 3-08 College MG tablet 00:00: of 00 Medicin e atorvastati 2018-0 Yes [facility] n (LIPITOR) 3-08 College 40 MG 00:00: of tablet 00 Medicin e amlodipine 2018-0 Yes [facility] (NORVASC) 5 3-08 College MG tablet 00:00: of 00 Medicin e atorvastati 2018-0 Yes [facility] n (LIPITOR) 3-08 College 40 MG 00:00: of tablet 00 Medicin e amlodipine 2018-0 Yes Last (NORVASC) 5 3-08 College MG tablet 00:00: of 00 Medicin e atorvastati 2018-0 Yes Last n (LIPITOR) 3-08 College 40 MG 00:00: of tablet 00 Medicin e amlodipine 2018-0 Yes Last (NORVASC) 5 3-08 College MG tablet 00:00: of 00 Medicin e atorvastati 2018-0 Yes Last n (LIPITOR) 3-08 College 40 MG 00:00: of tablet 00 Medicin e amlodipine 2018-0 Yes Last (NORVASC) 5 3-08 College MG tablet 00:00: of 00 Medicin e atorvastati 2018-0 Yes Last n (LIPITOR) 3-08 College 40 MG 00:00: of tablet 00 Medicin e amlodipine 2018-0 Yes Last (NORVASC) 5 3-08 College MG tablet 00:00: of 00 Medicin e atorvastati 2018-0 Yes Last n (LIPITOR) 3-08 College 40 MG 00:00: of tablet 00 Medicin e amlodipine 2018-0 Yes Last (NORVASC) 5 3-08 College MG tablet 00:00: of 00 Medicin e atorvastati 2018-0 Yes Last n (LIPITOR) 3-08 College 40 MG 00:00: of tablet 00 Medicin e amlodipine 2018-0 Yes Last (NORVASC) 5 3-08 College MG tablet 00:00: of 00 Medicin e atorvastati 2018-0 Yes Last n (LIPITOR) 3-08 College 40 MG 00:00: of tablet 00 Medicin e amlodipine 2018-0 Yes Last (NORVASC) 5 3-08 College MG tablet 00:00: of 00 Medicin e atorvastati 2018-0 Yes Last n (LIPITOR) 3-08 College 40 MG 00:00: of tablet 00 Medicin e amlodipine 2018-0 Yes Last (NORVASC) 5 3-08 College MG tablet 00:00: of 00 Medicin e atorvastati 2018-0 Yes Last n (LIPITOR) 3-08 College 40 MG 00:00: of tablet 00 Medicin e amlodipine 2018-0 Yes Last (NORVASC) 5 3-08 College MG tablet 00:00: of 00 Medicin e atorvastati 2018-0 Yes Last n (LIPITOR) 3-08 College 40 MG 00:00: of tablet 00 Medicin e amlodipine 2018-0 Yes Last (NORVASC) 5 3-08 College MG tablet 00:00: of 00 Medicin e atorvastati 2018-0 Yes Last n (LIPITOR) 3-08 College 40 MG 00:00: of tablet 00 Medicin e amlodipine 2018-0 Yes Last (NORVASC) 5 3-08 College MG tablet 00:00: of 00 Medicin e atorvastati 2018-0 Yes Last n (LIPITOR) 3-08 College 40 MG 00:00: of tablet 00 Medicin e amlodipine 2018-0 Yes [facility]08 College MG tablet 00:00: of 00 Medicin e atorvastati 2018-0 Yes Last n (LIPITOR) 3-08 College 40 MG 00:00: of tablet 00 Medicin e amlodipine 2018-0 Yes Last ([facility]) 5 3-08 College MG tablet 00:00: of 00 Medicin e atorvastati 2018-0 Yes Last n (LIPITOR) 3-08 College 40 MG 00:00: of tablet 00 Medicin e amlodipine 2018-0 Yes [facility]08 College MG tablet 00:00: of 00 Medicin e atorvastati 2018-0 Yes Last n (LIPITOR) 3-08 College 40 MG 00:00: of tablet 00 Medicin e amlodipine 2018-0 Yes Last (NORVAS) 5 3-08 College MG tablet 00:00: of 00 Medicin e atorvastati 2018-0 Yes Last n (LIPITOR) 3-08 College 40 MG 00:00: of tablet 00 Medicin e amlodipine 2018-0 Yes Last (NORVASC) 5 3-08 College MG tablet 00:00: of 00 Medicin e atorvastati 2018-0 Yes Last n (LIPITOR) 3-08 College 40 MG 00:00: of tablet 00 Medicin e amlodipine 2018-0 Yes Last (NORVASC) 5 3-08 College MG tablet 00:00: of 00 Medicin e atorvastati 2018-0 Yes [facility] n (LIPITOR) 3-08 College 40 MG 00:00: of tablet 00 Medicin e amlodipine 2018-0 Yes [facility] (NORVASC) 5 3-08 College MG tablet 00:00: of 00 Medicin e atorvastati 2018-0 Yes [facility] n (LIPITOR) 3-08 College 40 MG 00:00: of tablet 00 Medicin e amlodipine 2018-0 Yes [facility] (NORVASC) 5 3-08 College MG tablet 00:00: of 00 Medicin e atorvastati 2018-0 Yes [facility] n (LIPITOR) 3-08 College 40 MG 00:00: of tablet 00 Medicin e amlodipine 2018-0 Yes [facility] (NORVASC) 5 3-08 College MG tablet 00:00: of 00 Medicin e atorvastati 2018-0 Yes [facility] n (LIPITOR) 3-08 College 40 MG 00:00: of tablet 00 Medicin e amlodipine 2018-0 Yes [facility] (NORVASC) 5 3-08 College MG tablet 00:00: of 00 Medicin e atorvastati 2018-0 Yes [facility] n (LIPITOR) 3-08 College 40 MG 00:00: of tablet 00 Medicin e amlodipine 2018-0 Yes [facility] (NORVASC) 5 3-08 College MG tablet 00:00: of 00 Medicin e atorvastati 2018-0 Yes [facility] n (LIPITOR) 3-08 College 40 MG 00:00: of tablet 00 Medicin e insulin 2015- Yes 10U QD [facility]ject [facility] (LEVEMIR) 00:00: subcutaneo Wy dical 100 unit/mL 00 [facility] injection daily. Immunizations Ordered Immunization Filled Immunization Date Status Commen ts Source Name Name Influenza High Dose 2015-06-26 Completed [facility] Pres[facility] [id number] Pneumococcal 2013-11-[address] [facility] Polysaccharide [facility]:00 [facility] (Pneumovax) Influenza TIV (IM) 2013-11-[address] [facility] Vital Signs Vital Name Observation Time Observation Value Comments Source HEIGHT 2020-10-23 09:49:00 149.9 cm WEIGHT 2020-10-23 09:49:00 50.758 kg HEIGHT 2020-09-11 16:50:00 149.9 cm WEIGHT 2020-09-11 16:50:00 51.256 kg HEIGHT 2022-11-24 08:31:00 149.9 cm WEIGHT 2022-11-24 08:31:00 45.9 kg HEIGHT 2022-11-24 08:31:00 149.9 cm WEIGHT 2022-11-24 08:31:00 45.9 kg HEIGHT 2022-11-24 08:31:00 149.9 cm WEIGHT 2022-11-24 08:31:00 45.9 kg HEIGHT 2022-11-16 11:20:00 149.9 cm WEIGHT 2022-11-16 11:20:00 49.896 kg HEIGHT 2022-11-16 11:20:00 149.9 cm WEIGHT 2022-11-16 11:20:00 49.896 kg HEIGHT 2022-11-16 11:20:00 149.9 cm WEIGHT 2022-11-16 11:20:00 49.896 kg Systolic blood 2022-11-07 15:02:00 175 mm[Hg] [facility] of pressure Medicine Diastolic blood 2022-11-07 15:02:00 63 mm[Hg] [facility] of pressure Medicine Heart rate 2022-11-07 15:02:00 75 /min [facility] of [facility] Body height 2022-11-07 15:02:00 149.9 cm [facility] Body weight 2022-11-07 15:02:00 49.896 kg [facility] BMI 2022-11-07 15:02:00 22.22 kg/m2 [facility] Systolic blood 2022-08-16 21:00:00 159 mm[Hg] [facility] of pressure Medicine Diastolic blood 2022-08-16 21:00:00 75 mm[Hg] [facility] of pressure Medicine Heart rate 2022-08-16 21:00:00 70 /min [facility] Body height 2022-08-16 21:00:00 149.9 cm [facility] Body weight 2022-08-16 21:00:00 49.896 kg [facility] of Medicine BMI 2022-08-16 21:00:00 22.22 kg/m2 [facility] Systolic blood 2022-08-05 20:38:00 158 mm[Hg] [facility] Medicine Diastolic blood 2022-08-05 20:38:00 65 mm[Hg] [facility] Medicine Heart rate 2022-08-05 20:38:00 71 /min [facility] HEIGHT 2022-07-28 09:40:00 149.9 cm WEIGHT 2022-07-28 09:40:00 46.1 kg HEIGHT 2022-07-27 08:40:00 149.9 cm WEIGHT 2022-07-27 08:40:00 50.349 kg HEIGHT 2022-07-28 09:40:00 149.9 cm WEIGHT 2022-07-28 09:40:00 46.1 kg HEIGHT 2022-07-27 08:40:00 149.9 cm WEIGHT 2022-07-27 08:40:00 50.349 kg HEIGHT 2022-07-28 09:40:00 149.9 cm WEIGHT 2022-07-28 09:40:00 46.1 kg HEIGHT 2022-07-27 08:40:00 149.9 cm WEIGHT 2022-07-27 08:40:00 50.349 kg Systolic blood 2022-07-19 20:15:00 136 mm[Hg] [facility] Medicine Diastolic blood 2022-07-19 20:15:00 70 mm[Hg] [facility] Medicine Heart rate 2022-07-19 20:15:00 80 /min [facility] Body temperature 2022-07-19 20:15:00 36.78 [facility] Body height 2022-07-19 20:15:00 149.9 cm [facility] Body weight 2022-07-19 20:15:00 49.896 kg [facility] BMI 2022-07-19 20:15:00 22.22 kg/m2 [facility] Systolic blood 2022-07-19 20:45:00 136 mm[Hg] [facility] pressure Medicine Diastolic blood 2022-07-19 20:45:00 70 mm[Hg] [facility] Medicine Heart rate 2022-07-19 20:45:00 80 /min [facility] Body temperature 2022-07-19 20:45:00 36.78 [facility] Body height 2022-07-19 20:45:00 149.9 cm [facility] Body weight 2022-07-19 20:45:00 49.896 kg [facility] BMI 2022-07-19 20:45:00 22.22 kg/m2 [facility] Systolic blood 2022-07-08 17:58:00 174 mm[Hg] [facility] Medicine Diastolic blood 2022-07-08 17:58:00 68 mm[Hg] [facility] Medicine Heart rate 2022-07-08 17:58:00 75 /min [facility] Body height 2022-07-08 17:58:00 149.9 cm [facility] Body weight 2022-07-08 17:58:00 49.896 kg [facility] BMI 2022-07-08 17:58:00 22.22 kg/m2 [facility] Systolic blood 2022-06-17 19:16:00 135 mm[Hg] [facility] pressure Medicine Diastolic blood 2022-06-17 19:16:00 66 mm[Hg] [facility] Medicine Heart rate 2022-06-17 19:16:00 88 /min [facility] [employer] Body height 2022-06-17 19:16:00 149.9 cm [facility] [employer] Body weight 2022-06-17 19:16:00 51.256 kg [facility] [employer] BMI 2022-06-17 19:16:00 22.82 kg/m2 [facility] Systolic blood 2022-05-18 18:59:00 134 mm[Hg] [facility] pressure Medicine Diastolic blood 2022-05-18 18:59:00 68 mm[Hg] [employer] [facility] Heart rate 2022-05-18 18:59:00 79 /min [facility] Body height 2022-05-18 18:59:00 149.9 cm [facility] Body weight 2022-05-18 18:59:00 51.256 kg [facility] BMI 2022-05-18 18:59:00 22.82 kg/m2 [facility] Systolic blood 2022-03-01 21:20:00 162 mm[Hg] [facility] of pressure Medicine Diastolic blood 2022-03-01 21:20:00 61 mm[Hg] [facility] of pressure Medicine Heart rate 2022-03-01 21:20:00 82 /min [facility] Body height 2022-03-01 21:20:00 149.9 cm [facility] Body weight 2022-03-01 21:20:00 49.896 kg [facility] BMI 2022-03-01 21:20:00 22.22 kg/m2 [facility] Systolic blood 2022-03-01 21:32:00 161 mm[Hg] [facility] pressure Medicine Diastolic blood 2022-03-01 21:32:00 62 mm[Hg] [facility] of pressure Medicine Heart rate 2022-03-01 21:32:00 82 /min [facility] Body height 2022-03-01 21:32:00 149.9 cm [facility] Body weight 2022-03-01 21:32:00 49.896 kg [facility] BMI 2022-03-01 21:32:00 22.22 kg/m2 [facility] Systolic blood 2021-12-28 18:22:00 137 mm[Hg] [facility] of pressure Medicine Diastolic blood 2021-12-28 18:22:00 55 mm[Hg] [facility] of pressure Medicine Heart rate 2021-12-28 18:22:00 70 /min [facility] Body height 2021-12-28 18:22:00 149.9 cm [facility] Body weight 2021-12-28 18:22:00 51.256 kg [facility] BMI 2021-12-28 18:22:00 22.82 kg/m2 [facility] Systolic blood 2021-11-16 18:47:00 154 mm[Hg] [facility] pressure Medicine Diastolic blood 2021-11-16 18:47:00 63 mm[Hg] [facility] pressure Medicine Heart rate 2021-11-16 18:47:00 74 /min [facility] Body height 2021-11-16 18:47:00 149.9 cm [facility] Body weight 2021-11-16 18:47:00 51.256 kg [facility] BMI 2021-11-16 18:47:00 22.82 kg/m2 [facility] Systolic blood 2021-10-06 19:21:00 138 mm[Hg] [facility] pressure Medicine Diastolic blood 2021-10-06 19:21:00 63 mm[Hg] [facility] of pressure Medicine Heart rate 2021-10-06 19:21:00 77 /min [facility] Body height 2021-10-06 19:21:00 149.9 cm [facility] Body weight 2021-10-06 19:21:00 51.256 kg [facility] BMI 2021-10-06 19:21:00 22.82 kg/m2 [facility] Systolic blood 2021-09-23 15:46:00 143 mm[Hg] [facility] pressure Medicine Diastolic blood 2021-09-23 15:46:00 61 mm[Hg] [facility] of pressure Medicine Heart rate 2021-09-23 15:46:00 75 /min [facility] Body height 2021-09-23 15:46:00 149.9 cm [facility] Body weight 2021-09-23 15:46:00 51.256 kg [facility] BMI 2021-09-23 15:46:00 22.82 kg/m2 [facility] Systolic blood 2021-08-03 19:15:00 131 mm[Hg] [facility] pressure Medicine Diastolic blood 2021-08-03 19:15:00 67 mm[Hg] [facility] pressure Medicine Heart rate 2021-08-03 19:15:00 80 /min [facility] Body height 2021-08-03 19:15:00 149.9 cm [facility] Body weight 2021-08-03 19:15:00 51.256 kg [facility] BMI 2021-08-03 19:15:00 22.82 kg/m2 [facility] Systolic blood 2021-07-20 21:41:00 120 mm[Hg] [facility] pressure Medicine Diastolic blood 2021-07-20 21:41:00 58 mm[Hg] [facility] Medicine Heart rate 2021-07-20 21:41:00 60 /min [facility] Body height 2021-07-20 21:41:00 149.9 cm [facility] Body weight 2021-07-20 21:41:00 51.256 kg [facility] BMI 2021-07-20 21:41:00 22.82 kg/m2 [facility] Systolic blood 2021-07-06 21:19:00 141 mm[Hg] [facility] Medicine Diastolic blood 2021-07-06 21:19:00 63 mm[Hg] [facility] Medicine Heart rate 2021-07-06 21:19:00 79 /min [facility] Body height 2021-07-06 21:19:00 149.9 cm [facility] Systolic blood 2021-07-02 14:10:00 167 mm[Hg] [facility] pressure Medicine Diastolic blood 2021-07-02 14:10:00 65 mm[Hg] [facility] pressure Medicine Heart rate 2021-07-02 14:10:00 80 /min [facility] Respiratory rate 2021-07-02 14:10:00 12 /min [facility] Body height 2021-07-02 14:10:00 149.9 cm [facility] Body weight 2021-07-02 14:10:00 51.256 kg [facility] BMI 2021-07-02 14:10:00 22.82 kg/m2 [facility] HEIGHT 2021-06-18 12:28:00 149.9 cm WEIGHT 2021-06-18 12:28:00 50.349 kg HEIGHT 2021-06-18 12:28:00 149.9 cm WEIGHT 2021-06-18 12:28:00 50.349 kg Systolic blood 2021-04-23 15:23:00 136 mm[Hg] [facility] pressure Medicine Diastolic blood 2021-04-23 15:23:00 71 mm[Hg] [facility] Medicine Heart rate 2021-04-23 15:23:00 80 /min [facility] Body height 2021-04-23 15:23:00 149.9 cm [facility] Body weight 2021-04-23 15:23:00 49.896 kg [facility] BMI 2021-04-23 15:23:00 22.22 kg/m2 [facility] Systolic blood 2021-02-24 15:07:00 139 mm[Hg] [facility] pressure Medicine Diastolic blood 2021-02-24 15:07:00 60 mm[Hg] [facility] Medicine Heart rate 2021-02-24 15:07:00 74 /min [facility] Body temperature 2021-02-24 15:07:00 36.28 Taryn [facility] Body height 2021-02-24 15:07:00 149.9 cm [facility] Body weight 2021-02-24 15:07:00 49.896 kg [facility] BMI 2021-02-24 15:07:00 22.22 kg/m2 [facility] Systolic blood 2020-11-25 13:45:00 128 mm[Hg] [facility] pressure Medicine Diastolic blood 2020-11-25 13:45:00 62 mm[Hg] [employer] of pressure Medicine Heart rate 2020-11-25 13:45:00 71 /min [facility] Body height 2020-11-25 13:45:00 149.9 cm [facility] Body weight 2020-11-25 13:45:00 49.896 kg [facility] BMI 2020-11-25 13:45:00 22.22 kg/m2 [facility] HEIGHT 2020-10-23 09:49:00 149.9 cm WEIGHT 2020-10-23 09:49:00 50.758 kg HEIGHT 2020-09-11 16:50:00 149.9 cm WEIGHT 2020-09-11 16:50:00 51.256 kg Systolic blood 2020-06-11 20:33:00 125 mm[Hg] [facility] pressure Medicine Diastolic blood 2020-06-11 20:33:00 61 mm[Hg] [facility] Medicine Heart rate 2020-06-11 20:33:00 73 /min [facility] Body height 2020-06-11 20:33:00 149.9 cm [facility] Body weight 2020-06-11 20:33:00 49.896 kg [facility] BMI 2020-06-11 20:33:00 22.22 kg/m2 [facility] Systolic blood 2020-04-08 15:46:00 154 mm[Hg] [facility] pressure Medicine Diastolic blood 2020-04-08 15:46:00 62 mm[Hg] [facility] Medicine Heart rate 2020-04-08 15:46:00 74 /min [facility] Body temperature 2020-04-08 15:46:00 36.44 Taryn [facility] Body height 2020-04-08 15:46:00 149.9 cm [facility] Body weight 2020-04-08 15:46:00 49.896 kg [facility] BMI 2020-04-08 15:46:00 22.22 kg/m2 [facility] Systolic blood 2019-05-30 17:04:00 151 mm[Hg] [facility] Diastolic blood 2019-05-30 17:04:00 70 mm[Hg] [facility] Medicine Heart rate 2019-05-30 17:04:00 68 /min [facility] Body height 2019-05-30 17:04:00 149.9 cm [facility] Body weight 2019-05-30 17:04:00 48.535 kg [facility] BMI 2019-05-30 17:04:00 21.61 kg/m2 [facility] Systolic blood 2019-05-09 16:43:00 148 mm[Hg] [facility] Medicine Diastolic blood 2019-05-09 16:43:00 66 mm[Hg] [facility] Medicine Heart rate 2019-05-09 16:43:00 72 /min [facility] Respiratory rate 2019-05-09 16:43:00 18 /min [facility] Body height 2019-05-09 16:43:00 149.9 cm [facility] Body weight 2019-05-09 16:43:00 48.535 kg [facility] BMI 2019-05-09 16:43:00 21.61 [facility] 2019-04-03 15:42:00 151 mm[Hg] [facility] Medicine Diastolic blood 2019-04-03 15:42:00 74 mm[Hg] [facility] Medicine Heart rate 2019-04-03 15:42:00 76 /min [facility] Body height 2019-04-03 15:42:00 149.9 cm [facility] Body weight 2019-04-03 15:42:00 48.535 kg [facility] BMI 2019-04-03 15:42:00 21.61 kg/m2 [facility] Systolic blood 2022-11-24 12:15:00 154 mm[Hg] [facility] Diastolic blood 2022-11-24 12:15:00 70 mm[Hg] [facility] Heart rate 2022-11-24 12:15:00 73 /min [facility] Body temperature 2022-11-24 12:15:00 36.22 Taryn [facility] Respiratory rate 2022-11-24 12:15:00 18 /min [facility] Oxygen saturation in 2022-11-24 12:15:00 100 /min [facility] Arterial blood by Medical Ce nter Pulse oximetry Body height 2022-11-24 08:31:00 149.9 cm [facility] Body weight 2022-11-24 08:31:00 45.9 kg [facility] BMI 2022-11-24 08:31:00 20.44 kg/m2 [facility] Procedures Procedure Date / Time Performed Performing Clinician Sourshauna e [facility] DEBRIDEMENT, SKIN, 2022-11-25 10:24:38 [facility]-Q TISSUE,=<20 SQ CM Medicine POCT-GLUCOSE METER 2022-11-24 11:22:00 Jose Hearn [facility] FUNGUS CULTURE + SMEAR 2022-11-24 10:31:00 Jose Hearn [facility] SURGICALLY OBTAINED 2022-11-24 10:31:00 Jose Hearn [facility] CULTURE + GRAM STAIN Medical [facility] ANAEROBIC CULTURE 2022-11-24 10:31:00 Jose Hearn [facility] [employer] CULTURE + SMEAR 2022-11-24 10:31:00 Jose Hearn [facility] (NON-SPUTUM) [facility] SPIN/CONCENTRATION 2022-11-24 10:31:00 Jose Hearn [facility] IRRIGATION AND 2022-11-24 09:56:00 Jose Hearn [facility] DEBRIDEMENT, ABSCESS, Medical Ce nter FOOT IRRIGATION AND 2022-11-24 09:56:00 Jose Hearn [facility] DEBRIDEMENT, WOUND, Medical Cent er LOWER EXTREMITY APPLICATION, SKIN 2022-11-24 09:56:00 Jose Hearn [facility] POCT-GLUCOSE METER 2022-11-24 08:38:00 Jose Hearn [facility] ECG 12-LEAD 2022-11-16 11:24:02 Brooke Paul [facility] ECG 12-LEAD 2022-11-16 11:24:02 Unknown, H[facility] Doctor [facility] HEMOGLOBIN 2022-11-16 11:13:00 [facility] 2022-11-16 11:13:[address] [facility] BUN AND CREATININE 2022-11-16 11:13:00 Paul [facility] W/RATIO [facility] Center GLUCOSE 2022-11-16 11:13:[address] [facility] WOUND CARE INSTRUCTIONS 2022-11-07 10:38:11 [facility] VA DEBRIDEMENT, SKIN, 2022-08-27 03:40:32 [facility] SUB-Q TISSUE,=<20 SQ CM [facility] VA DEBRIDEMENT, SKIN, 2022-08-25 00:44:49 [facility] SUB-Q TISSUE,=<20 SQ CM [facility] WOUND CARE INSTRUCTIONS 2022-08-17 14:32:58 [facility] WOUND CARE INSTRUCTIONS 2022-08-05 15:07:03 [facility] POCT-GLUCOSE METER 2022-07-28 13:21:00 Jose Hearn [facility] SURGICALLY OBTAINED 2022-07-28 11:48:37 Jose Hearn [facility] CULTURE + GRAM STAIN [facility] FUNGUS CULTURE + SMEAR 2022-07-28 11:48:35 Jose Hearn [facility] ANAEROBIC CULTURE 2022-07-28 11:48:33 Jose Hearn [facility] [employer] CULTURE + SMEAR 2022-07-28 11:48:30 Jose Hearn [facility] (NON-SPUTUM) [facility] SPIN/CONCENTRATION 2022-07-28 11:48:00 Jose Hearn [facility] [employer] CULTURE + SMEAR 2022-07-28 11:36:55 Jose Hearn [facility] (NON-SPUTUM) [facility] ANAEROBIC CULTURE 2022-07-28 11:36:55 Jose Hearn [facility] FUNGUS CULTURE + SMEAR 2022-07-28 11:36:55 Jose Hearn [facility] SURGICALLY OBTAINED 2022-07-28 11:36:55 [facility] SPIN/CONCENTRATION 2022-07-28 11:36:00 Jose Hearn [facility] IRRIGATION AND 2022-07-28 10:14:00 Jose Hearn [facility] DEBRIDEMENT, WOUND, Medical Cent er LOWER EXTREMITY OSTEOTOMY, FOOT 2022-07-28 10:14:00 Jose Hearn [facility] POCT-GLUCOSE METER 2022-07-28 09:48:00 Jose Hearn [facility] VA DEBRIDEMENT, SKIN, 2022-07-27 12:05:35 [facility] SUB-Q TISSUE,=<20 SQ CM Medicine WOUND CARE INSTRUCTIONS 2022-07-19 15:02:50 [facility] AMB REF TO INFECTIOUS 2022-07-08 12:38:23 [facility] DISEASE [facility] WOUND CARE INSTRUCTIONS 2022-07-08 12:31:32 [facility] WOUND CARE INSTRUCTIONS 2022-06-17 14:38:25 [facility] VA DEBRIDEMENT, SKIN, 2022-05-27 03:18:21 [facility] SUB-Q TISSUE,=<20 SQ CM Medicine VA DEBRIDEMENT OPEN 2022-05-27 03:18:21 [facility] WOUND 20 SQ CM< Medicine WOUND CARE INSTRUCTIONS 2022-05-18 14:51:01 [facility] VA DEBRIDEMENT, SKIN, 2022-03-06 10:07:59 [facility] SUB-Q TISSUE,=<20 SQ CM Medicine WOUND CARE INSTRUCTIONS 2022-03-01 16:41:00 [facility] Plan of Care Planned Activity Planned Date Details Comments Source Future Scheduled 2023-11-[address] [facility] Test 00:00:00 Counseling and Medical Cente r Screening (12+) [code = Tobacco Cessation Counseling and Screening (12+)] Future Scheduled 2023-04-[address] [facility] Test 00:00:00 (Season Ended) [code Medical Center = INFLUENZA VACCINE (Season Ended)] Future Scheduled 2022-11-25 Pneumococcal 65+ (1 [employer] Test 10:24:54 - PCV) [code = of Medicine Pneumococcal 65+ (1 - PCV)] Future Scheduled 2022-11-25 TETANUS SHOT (ADULT) [employer] [facility] 10:24:54 [code = TETANUS SHOT of Medi cine (ADULT)] Future Scheduled 2022-11-25 Diabetic foot [facility] 10:24:54 examination of Medicine (regime/therapy) [code = 779907927] Future Scheduled 2022-11-25 Annual Diabetic [facility] Test 10:24:54 Retinopathy of Medicine Screening [code = Annual Diabetic Retinopathy Screening] Future Scheduled 2022-11-25 ZOSTER VACCINE (1 of [employer] Test 10:24:54 2) [code = ZOSTER of Medicin e VACCINE (1 of 2)] Future Scheduled 2022-11-25 Screening for [facility] Test 10:24:54 osteoporosis of Medicine (procedure) [code = 190731372] Future Scheduled 2022-11-25 Medicare Awv [facility] 10:24:54 (Initial) [code = of Medicin e Medicare Awv (Initial)] Future Scheduled 2022-11-25 COVID-19 Vaccine (3 [employer] Test 10:24:54 - Booster for Pfizer of Medi cine series) [code = COVID-19 Vaccine (3 - Booster for Pfizer series)] Future Scheduled 2022-11-25 FLU VACCINE > 6 [facility] 10:24:54 MONTHS [code = FLU of Medici ne VACCINE > 6 MONTHS] Future Scheduled 2022-11-25 Fall Screen [code = [employer] [facility] 10:24:54 Fall Screen] of Medicine Future Scheduled 2022-11-25 VA DEBRIDEMENT, Ordered: [facility] Test 10:24:38 SKIN, SUB-Q 11/25/2022 of Medicine TISSUE,=<20 SQ CM [code = 16441] Future Scheduled 2022-11-07 WOUND CARE Ordered: [facility] Test 10:38:11 INSTRUCTIONS [code = 11/07/2022 of Medi cine 33324] Future Scheduled 2022-08-[address] [facility] Test 00:00:00 (12+) [code = Medical Center DEPRESSION SCREENING (12+)] Future Scheduled 2022-08-28 F[address]S RISK SCREENING [facility] Test 00:00:00 [code = FALLS RISK Medical C enter SCREENING] Future Scheduled 2022-08-26 Pneumococcal 65+ (1 [employer] Test 14:54:37 - PCV) [code = of Medicine Pneumococcal 65+ (1 - PCV)] Future Scheduled 2022-08-26 TETANUS SHOT (ADULT) [employer] Test 14:54:37 [code = TETANUS SHOT of Medi cine (ADULT)] Future Scheduled 2022-08-26 Diabetic foot [facility] Test 14:54:37 examination of Medicine (regime/therapy) [code = [id number]] Future Scheduled 2022-08-26 ANNUAL DIABETIC [facility] Test 14:54:37 RETINOPATHY of Medicine SCREENING [code = ANNUAL DIABETIC RETINOPATHY SCREENING] Future Scheduled 2022-08-26 ZOSTER VACCINE (1 of [employer] Test 14:54:37 2) [code = ZOSTER of Medicin e VACCINE (1 of 2)] Future Scheduled 2022-08-26 Screening for [facility] Test 14:54:37 osteoporosis of Medicine (procedure) [code = [id number]] Future Scheduled 2022-08-26 MEDICARE AWV [facility] Test 14:54:37 (Initial) [code = of Medicin e MEDICARE AWV (Initial)] Future Scheduled 2022-08-26 COVID-19 Vaccine (3 [employer] Test 14:54:37 - Booster for Pfizer of Medi cine series) [code = COVID-19 Vaccine (3 - Booster for Pfizer series)] Future Scheduled 2022-08-26 FLU VACCINE > 6 [facility] Test 14:54:37 MONTHS [code = FLU of Medici ne VACCINE > 6 MONTHS] Future Scheduled 2022-08-26 FALL SCREEN [code = [employer] [facility] 14:54:37 FALL SCREEN] of Medicine Future Scheduled 2022-08-25 VA DEBRIDEMENT, Ordered: [facility] Test 00:44:49 SKIN, SUB-Q 08/25/2022 of Medicine TISSUE,=<20 SQ CM [code = 50045] Future Scheduled 2022-08-25 Pneumococcal 65+ (1 [employer] [facility] 00:33:58 - PCV) [code = of Medicine Pneumococcal 65+ (1 - PCV)] Future Scheduled 2022-08-25 TETANUS SHOT (ADULT) [employer] [facility] 00:33:58 [code = TETANUS SHOT of [employer] c[employer] (ADULT)] Future Scheduled 2022-08-25 Diabetic foot [facility] 00:33:58 examination of Medicine (regime/therapy) [code = 128005284] Future Scheduled 2022-08-25 ANNUAL DIABETIC [facility] 00:33:58 RETINOPATHY of Medicine SCREENING [code = ANNUAL DIABETIC RETINOPATHY SCREENING] Future Scheduled 2022-08-25 ZOSTER VACCINE (1 of [employer] Test 00:33:58 2) [code = ZOSTER of Medicin e VACCINE (1 of 2)] Future Scheduled 2022-08-25 Screening for [facility] 00:33:58 osteoporosis of Medicine (procedure) [code = 625939287] Future Scheduled 2022-08-25 MEDICARE AWV [facility] Test 00:33:58 (Initial) [code = of Medicin e MEDICARE AWV (Initial)] Future Scheduled 2022-08-25 COVID-19 Vaccine (3 [employer] Test 00:33:58 - Booster for Pfizer of Medi cine series) [code = COVID-19 Vaccine (3 - Booster for Pfizer series)] Future Scheduled 2022-08-25 FLU VACCINE > 6 [facility] Test 00:33:58 MONTHS [code = FLU of Medici ne VACCINE > 6 MONTHS] Future Scheduled 2022-08-25 FALL SCREEN [code = [employer] [facility] 00:33:58 FALL SCREEN] of Medicine Future Scheduled 2022-08-17 WOUND CARE Ordered: [facility] 14:32:58 INSTRUCTIONS [code = 08/17/2022 of [employer]! 46701] Future Scheduled 2022-08-05 WOUND CARE Ordered: [facility] Test 15:07:03 INSTRUCTIONS [code = 08/05/2022 of [employer]! 99704] Future Scheduled 2022-07-27 VA DEBRIDEMENT, Ordered: [facility] Test 12:05:35 SKIN, SUB-Q 07/27/2022 of Medicine TISSUE,=<20 SQ CM [code = 70720] Future Scheduled 2022-07-27 Pneumococcal 65+ (1 [employer] Test 11:51:40 - PCV) [code = of Medicine Pneumococcal 65+ (1 - PCV)] Future Scheduled 2022-07-27 TETANUS SHOT (ADULT) [employer] [facility] 11:51:40 [code = TETANUS SHOT of Medi cine (ADULT)] Future Scheduled 2022-07-27 Diabetic foot [facility] Test 11:51:40 examination of Medicine (regime/therapy) [code = 052806269] Future Scheduled 2022-07-27 ANNUAL DIABETIC [facility] Test 11:51:40 RETINOPATHY of Medicine SCREENING [code = ANNUAL DIABETIC RETINOPATHY SCREENING] Future Scheduled 2022-07-27 ZOSTER VACCINE (1 of [employer] [facility] 11:51:40 2) [code = ZOSTER of Medicin e VACCINE (1 of 2)] Future Scheduled 2022-07-27 Screening for [facility] Test 11:51:40 osteoporosis of Medicine (procedure) [code = 610444836] Future Scheduled 2022-07-27 MEDICARE AWV [facility] 11:51:40 (Initial) [code = of Medicin e MEDICARE AWV (Initial)] Future Scheduled 2022-07-27 COVID-19 Vaccine (3 [employer] Test 11:51:40 - Booster for Pfizer of Medi cine series) [code = COVID-19 Vaccine (3 - Booster for Pfizer series)] Future Scheduled 2022-07-27 FLU VACCINE > 6 [facility] 11:51:40 MONTHS [code = FLU of Medici ne VACCINE > 6 MONTHS] Future Scheduled 2022-07-27 FALL SCREEN [code = [employer] [facility] 11:51:40 FALL SCREEN] of Medicine Future Scheduled 2022-07-27 Pneumococcal 65+ (1 [employer] Test 01:08:36 - PCV) [code = of Medicine Pneumococcal 65+ (1 - PCV)] Future Scheduled 2022-07-27 TETANUS SHOT (ADULT) [employer] [facility] 01:08:36 [code = TETANUS SHOT of Medi cine (ADULT)] Future Scheduled 2022-07-27 Diabetic foot [facility] 01:08:36 examination of Medicine (regime/therapy) [code = 806649860] Future Scheduled 2022-07-27 ANNUAL DIABETIC [facility] Test 01:08:36 RETINOPATHY of Medicine SCREENING [code = ANNUAL DIABETIC RETINOPATHY SCREENING] Future Scheduled 2022-07-27 ZOSTER VACCINE (1 of [employer] [facility] 01:08:36 2) [code = ZOSTER of Medicin e VACCINE (1 of 2)] Future Scheduled 2022-07-27 Screening for [facility] Test 01:08:36 osteoporosis of Medicine (procedure) [code = 758211572] Future Scheduled 2022-07-27 MEDICARE AWV [facility] 01:08:36 (Initial) [code = of Medicin e MEDICARE AWV (Initial)] Future Scheduled 2022-07-27 COVID-19 Vaccine (3 [employer] [facility] 01:08:36 - Booster for Pfizer of Medi cine series) [code = COVID-19 Vaccine (3 - Booster for Pfizer series)] Future Scheduled 2022-07-27 FLU VACCINE > 6 [facility] 01:08:36 MONTHS [code = FLU of Medici ne VACCINE > 6 MONTHS] Future Scheduled 2022-07-27 FALL SCREEN [code = [employer] [facility] 01:08:36 FALL SCREEN] of Medicine Future Scheduled 2022-07-20 US ARTERIAL LEG 1 Occurrences [facility] Test 10:06:41 RIGHT [code = 66927] starting of Medi cine 07/20/2022 until 07/20/2023 Future Scheduled 2022-07-20 Pneumococcal 65+ (1 [employer] [facility] 08:34:13 - PCV) [code = of Medicine Pneumococcal 65+ (1 - PCV)] Future Scheduled 2022-07-20 TETANUS SHOT (ADULT) [facility] Test 08:34:13 [code = TETANUS SHOT of Medi cine (ADULT)] Future Scheduled 2022-07-20 Diabetic foot [facility] Test 08:34:13 examination of Medicine (regime/therapy) [code = [id number]] Future Scheduled 2022-07-20 ANNUAL DIABETIC Last [facility] Test 08:34:13 RETINOPATHY of Medicine SCREENING [code = ANNUAL DIABETIC RETINOPATHY SCREENING] Future Scheduled 2022-07-20 ZOSTER VACCINE (1 of [place] [facility] [employer] Test 08:34:13 2) [code = ZOSTER of Medicin e VACCINE (1 of 2)] Future Scheduled 2022-07-20 Screening for Last [facility] Test 08:34:13 osteoporosis of Medicine (procedure) [code = 331910890] Future Scheduled 2022-07-20 MEDICARE AWV Last [facility] Test 08:34:13 (Initial) [code = of Medicin e MEDICARE AWV (Initial)] Future Scheduled 2022-07-20 COVID-19 Vaccine (3 [employer] Test 08:34:13 - Booster for Pfizer of Medi cine series) [code = COVID-19 Vaccine (3 - Booster for Pfizer series)] Future Scheduled 2022-07-20 FLU VACCINE > 6 [facility] Test 08:34:13 MONTHS [code = FLU of Medici ne VACCINE > 6 MONTHS] Future Scheduled 2022-07-20 FALL SCREEN [code = [employer] [facility] 08:34:13 FALL SCREEN] of Medicine Future Scheduled 2022-07-19 WOUND CARE Ordered: [facility] Test 15:02:50 INSTRUCTIONS [code = 07/19/2022 of [employer]i Play Meg[employer] 46047] Future Scheduled 2022-07-08 WOUND CARE Ordered: Last [facility] Test 12:31:32 INSTRUCTIONS [code = 07/08/2022 of CatchMe! 89845] Future Scheduled 2022-07-04 Pneumococcal 65+ (1 [employer] Test 14:11:15 - PCV) [code = of Medicine Pneumococcal 65+ (1 - PCV)] Future Scheduled 2022-07-04 TETANUS SHOT (ADULT) [employer] [facility] 14:11:15 [code = TETANUS SHOT of Medi cine (ADULT)] Future Scheduled 2022-07-04 Diabetic foot [facility] Test 14:11:15 examination of Medicine (regime/therapy) [code = 482293536] Future Scheduled 2022-07-04 ANNUAL DIABETIC [facility] Test 14:11:15 RETINOPATHY of Medicine SCREENING [code = ANNUAL DIABETIC RETINOPATHY SCREENING] Future Scheduled 2022-07-04 ZOSTER VACCINE (1 of [employer] [facility] 14:11:15 2) [code = ZOSTER of Medicin e VACCINE (1 of 2)] Future Scheduled 2022-07-04 Screening for Last [facility] Test 14:11:15 osteoporosis of Medicine (procedure) [code = 206308855] Future Scheduled 2022-07-04 MEDICARE AWV [facility] Test 14:11:15 (Initial) [code = of Medicin e MEDICARE AWV (Initial)] Future Scheduled 2022-07-04 COVID-19 Vaccine (3 [employer] Test 14:11:15 - Booster for Pfizer of Medi cine series) [code = COVID-19 Vaccine (3 - Booster for Pfizer series)] Future Scheduled 2022-07-04 FLU VACCINE > 6 [facility] Test 14:11:15 MONTHS [code = FLU of Medici ne VACCINE > 6 MONTHS] Future Scheduled 2022-07-04 FALL SCREEN [code = [employer] [facility] 14:11:15 FALL SCREEN] of Medicine Future Scheduled 2022-06-[address] [facility] 00:[facility]:00 examination [facility] (regime/therapy) [code = 714346710] Future Scheduled 2022-06-17 XR FOOT RIGHT 1 Occurrences [facility] Test 14:41:03 (COMPLETE) [code = [place] [address]-3] 06/17/2022 until 06/17/2023 Future Scheduled 2022-06-17 WOUND CARE Ordered: [facility] Test 14:38:25 INSTRUCTIONS [code = 06/17/2022 of Medi cine 76924] Future Scheduled 2022-05-27 [facility], Ordered: [facility] Test 03:18:21 SKIN, SUB-Q 05/27/2022 of Medicine TISSUE,=<20 SQ CM [code = 92704] Future Scheduled 2022-05-27 [facility] OPEN Ordered: [employer] Test 03:18:21 WOUND 20 SQ CM< 05/27/2022 of Medicine [code = 91823] Future Scheduled 2022-05-27 Pneumococcal 65+ (1 [employer] Test 02:43:41 - PCV) [code = of Medicine Pneumococcal 65+ (1 - PCV)] Future Scheduled 2022-05-27 TETANUS SHOT (ADULT) [employer] [facility] 02:43:41 [code = TETANUS SHOT of Medi cine (ADULT)] Future Scheduled 2022-05-27 Diabetic foot [facility] 02:43:41 examination of Medicine (regime/therapy) [code = 116324764] Future Scheduled 2022-05-27 ANNUAL DIABETIC [facility] Test 02:43:41 RETINOPATHY of Medicine SCREENING [code = ANNUAL DIABETIC RETINOPATHY SCREENING] Future Scheduled 2022-05-27 ZOSTER VACCINE (1 of [employer] [facility] 02:43:41 2) [code = ZOSTER of Medicin e VACCINE (1 of 2)] Future Scheduled 2022-05-27 Screening for [facility] Test 02:43:41 osteoporosis of Medicine (procedure) [code = 489579751] Future Scheduled 2022-05-27 MEDICARE AWV [facility] Test 02:43:41 (Initial) [code = of Medicin e MEDICARE AWV (Initial)] Future Scheduled 2022-05-27 COVID-19 Vaccine (3 [employer] Test 02:43:41 - Booster for Pfizer of Medi cine series) [code = COVID-19 Vaccine (3 - Booster for Pfizer series)] Future Scheduled 2022-05-27 FLU VACCINE > 6 [facility] Test 02:43:41 MONTHS [code = FLU of Medici ne VACCINE > 6 MONTHS] Future Scheduled 2022-05-27 FALL SCREEN [code = [employer] [facility] 02:43:41 FALL SCREEN] of Medicine Future Scheduled 2022-05-18 WOUND CARE Ordered: [facility] Test 14:51:01 INSTRUCTIONS [code = 05/18/2022 of Medi cine 18651] Future Scheduled 2022-03-06 [facility]EMENT, Ordered: [facility] Test 10:07:59 SKIN, SUB-Q 03/06/2022 of Medicine TISSUE,=<20 SQ CM [code = 15649] Future Scheduled 2022-03-06 Pneumococcal 65+ (1 [employer] Test 09:42:50 - PCV) [code = of Medicine Pneumococcal 65+ (1 - PCV)] Future Scheduled 2022-03-06 TETANUS SHOT (ADULT) [employer] [facility] 09:42:50 [code = TETANUS SHOT of Medi cine (ADULT)] Future Scheduled 2022-03-06 Diabetic foot [facility] 09:42:50 examination of Medicine (regime/therapy) [code = 144916528] Future Scheduled 2022-03-06 ANNUAL DIABETIC [facility] Test 09:42:50 RETINOPATHY of Medicine SCREENING [code = ANNUAL DIABETIC RETINOPATHY SCREENING] Future Scheduled 2022-03-06 ZOSTER VACCINE (1 of [employer] [facility] 09:42:50 2) [code = ZOSTER of Medicin e VACCINE (1 of 2)] Future Scheduled 2022-03-06 Screening for Last [facility] Test 09:42:50 osteoporosis of Medicine (procedure) [code = 674181606] Future Scheduled 2022-03-06 MEDICARE AWV [facility] Test 09:42:50 (Initial) [code = of Medicin e MEDICARE AWV (Initial)] Future Scheduled 2022-03-06 COVID-19 Vaccine (3 [employer] Test 09:42:50 - Booster for Pfizer of ShotSpotter cine series) [code = COVID-19 Vaccine (3 - Booster for Pfizer series)] Future Scheduled 2022-03-06 FLU VACCINE > 6 [facility] Test 09:42:50 MONTHS [code = FLU of Medici ne VACCINE > 6 MONTHS] Future Scheduled 2022-03-06 FALL SCREEN [code = [employer] [facility] 09:42:50 FALL SCREEN] of Medicine Future Scheduled 2022-03-01 WOUND CARE Ordered: [facility] Test 16:41:00 INSTRUCTIONS [code = 03/01/2022 of CatchMe! 31524] Future Scheduled 2022-03-01 US ARTERIAL LEG 1 Occurrences [facility] Test 16:35:16 RIGHT [code = 13262] starting of ShotSpotter cine 03/01/2022 until 03/01/2023 Future Scheduled 2022-03-01 Pneumococcal 65+ (1 [employer] Test 16:21:38 - PCV) [code = of Medicine Pneumococcal 65+ (1 - PCV)] Future Scheduled 2022-03-01 TETANUS SHOT (ADULT) [facility] Test 16:21:38 [code = TETANUS SHOT of ShotSpotter cine (ADULT)] Future Scheduled 2022-03-01 Diabetic foot [facility] Test 16:21:38 examination of Medicine (regime/therapy) [code = 619532606] Future Scheduled 2022-03-01 ANNUAL DIABETIC [facility] Test 16:21:38 RETINOPATHY of Medicine SCREENING [code = ANNUAL DIABETIC RETINOPATHY SCREENING] Future Scheduled 2022-03-01 ZOSTER VACCINE (1 of [employer] [facility] 16:21:38 2) [code = ZOSTER of Medicin e VACCINE (1 of 2)] Future Scheduled 2022-03-01 Screening for Last [facility] Test 16:21:38 osteoporosis of Medicine (procedure) [code = 492216483] Future Scheduled 2022-03-01 MEDICARE AWV [facility] Test 16:21:38 (Initial) [code = of Medicin e MEDICARE AWV (Initial)] Future Scheduled 2022-03-01 COVID-19 Vaccine (3 [employer] Test 16:21:38 - Booster for Pfizer of Medi cine series) [code = COVID-19 Vaccine (3 - Booster for Pfizer series)] Future Scheduled 2022-03-01 FLU VACCINE > 6 [facility] 16:21:38 MONTHS [code = FLU of Medici ne VACCINE > 6 MONTHS] Future Scheduled 2022-03-01 FALL SCREEN [code = [employer] [facility] 16:21:38 FALL SCREEN] of Medicine Future Scheduled 2021-12-31 [facility]EMENT, Ordered: [facility] Test 15:01:29 SKIN, SUB-Q 12/31/2021 of Medicine TISSUE,=<20 SQ CM [code = 88175] Future Scheduled 2021-12-31 [facility] DEBR[facility]EMENT OPEN Ordered: [employer] Test 15:01:29 WOUND 20 SQ CM< 12/31/2021 of Medicine [code = 81571] Future Scheduled 2021-12-31 TETANUS SHOT (ADULT) [employer] [facility] 14:55:50 [code = TETANUS SHOT of Medi cine (ADULT)] Future Scheduled 2021-12-31 Diabetic foot [facility] Test 14:55:50 examination of Medicine (regime/therapy) [code = 453603445] Future Scheduled 2021-12-31 ANNUAL DIABETIC [facility] Test 14:55:50 RETINOPATHY of Medicine SCREENING [code = ANNUAL DIABETIC RETINOPATHY SCREENING] Future Scheduled 2021-12-31 ZOSTER VACCINE (1 of [employer] [facility] 14:55:50 2) [code = ZOSTER of Medicin e VACCINE (1 of 2)] Future Scheduled 2021-12-31 Screening for Last [facility] Test 14:55:50 osteoporosis of Medicine (procedure) [code = 827520962] Future Scheduled 2021-12-31 Pneumococcal 65+ (1 [employer] Test 14:55:50 of 1 - PPSV23) [code of Medi cine = Pneumococcal 65+ (1 of 1 - PPSV23)] Future Scheduled 2021-12-31 MEDICARE AWV [facility] Test 14:55:50 (Initial) [code = of Medicin e MEDICARE AWV (Initial)] Future Scheduled 2021-12-31 COVID-19 Vaccine (3 [employer] Test 14:55:50 - Booster for Pfizer of Medi cine series) [code = COVID-19 Vaccine (3 - Booster for Pfizer series)] Future Scheduled 2021-12-31 FLU VACCINE > 6 [facility] Test 14:55:50 MONTHS [code = FLU of Medici ne VACCINE > 6 MONTHS] Future Scheduled 2021-12-31 FALL SCREEN [code = [employer] [facility] 14:55:50 FALL SCREEN] of Medicine Future Scheduled 2021-11-25 [facility] DEBR[facility]EMENT, Ordered: Last [facility] Test 16:35:46 SKIN, SUB-Q 11/25/2021 of Medicine TISSUE,=<20 SQ CM [code = 98217] Future Scheduled 2021-11-25 [facility] DEBRIDEMENT OPEN Ordered: [employer] Test 16:35:46 WOUND 20 SQ CM< 11/25/2021 of Medicine [code = 50031] Future Scheduled 2021-11-25 TETANUS SHOT (ADULT) [employer] [facility] 16:29:12 [code = TETANUS SHOT of Medi cine (ADULT)] Future Scheduled 2021-11-25 Diabetic foot [facility] Test 16:29:12 examination of Medicine (regime/therapy) [code = 173499610] Future Scheduled 2021-11-25 ANNUAL DIABETIC [facility] 16:29:12 RETINOPATHY of Medicine SCREENING [code = ANNUAL DIABETIC RETINOPATHY SCREENING] Future Scheduled 2021-11-25 ZOSTER VACCINE (1 of [employer] [facility] 16:29:12 2) [code = ZOSTER of Medicin e VACCINE (1 of 2)] Future Scheduled 2021-11-25 Screening for Last [facility] Test 16:29:12 osteoporosis of Medicine (procedure) [code = 344104564] Future Scheduled 2021-11-25 Pneumococcal 65+ (1 [employer] Test 16:29:12 of 1 - PPSV23) [code of Medi cine = Pneumococcal 65+ (1 of 1 - PPSV23)] Future Scheduled 2021-11-25 MEDICARE AWV [facility] Test 16:29:12 (Initial) [code = of Medicin e MEDICARE AWV (Initial)] Future Scheduled 2021-11-25 FLU VACCINE > 6 [facility] Test 16:29:12 MONTHS [code = FLU of Medici ne VACCINE > 6 MONTHS] Future Scheduled 2021-11-25 COVID-19 Vaccine (3 [employer] Test 16:29:12 - Booster for Pfizer of Medi cine series) [code = COVID-19 Vaccine (3 - Booster for Pfizer series)] Future Scheduled 2021-11-25 FALL SCREEN [code = [employer] [facility] 16:29:12 FALL SCREEN] of Medicine Future Scheduled 2021-11-16 WOUND CARE Ordered: [facility] Test 14:43:29 INSTRUCTIONS [code = 11/16/2021 of Medi cine 43609] Future Scheduled 2021-11-16 US ANK/BRAC INDICES, 1 Occurrences [employer] Test 14:43:29 SINGLE BILAT [code = starting of Medi cine 03279] 11/16/2021 until 11/16/2022 Future Scheduled 2021-11-16 XR FOOT RIGHT 1 Occurrences [facility] Test 14:43:29 (COMPLETE) [code = [place] [address]-2] 11/16/2021 until 11/16/2022 Future Scheduled 2021-10-17 [facility] DEBRIDEMENT, Ordered: [facility] Test 14:31:15 SKIN, SUB-Q 10/17/2021 of Medicine TISSUE,=<20 SQ CM [code = 09961] Future Scheduled 2021-10-17 TETANUS SHOT (ADULT) [facility] Test 14:26:33 [code = TETANUS SHOT of Medi cine (ADULT)] Future Scheduled 2021-10-17 Diabetic foot [facility] Test 14:26:33 examination of Medicine (regime/therapy) [code = 401706465] Future Scheduled 2021-10-17 ANNUAL DIABETIC [facility] Test 14:26:33 RETINOPATHY of Medicine SCREENING [code = ANNUAL DIABETIC RETINOPATHY SCREENING] Future Scheduled 2021-10-17 ZOSTER VACCINE (1 of [employer] Test 14:26:33 2) [code = ZOSTER of Medicin e VACCINE (1 of 2)] Future Scheduled 2021-10-17 Screening for [facility] Test 14:26:33 osteoporosis of Medicine (procedure) [code = 040192210] Future Scheduled 2021-10-17 Pneumococcal 65+ (1 [employer] Test 14:26:33 of 1 - PPSV23) [code of Medi cine = Pneumococcal 65+ (1 of 1 - PPSV23)] Future Scheduled 2021-10-17 MEDICARE AWV [facility] Test 14:26:33 (Initial) [code = of Medicin e MEDICARE AWV (Initial)] Future Scheduled 2021-10-17 FLU VACCINE > 6 [facility] Test 14:26:33 MONTHS [code = FLU of Medici ne VACCINE > 6 MONTHS] Future Scheduled 2021-10-17 COVID-19 Vaccine (3 [employer] Test 14:26:33 - Booster for Pfizer of Medi cine series) [code = COVID-19 Vaccine (3 - Booster for Pfizer series)] Future Scheduled 2021-10-17 FALL SCREEN [code = [employer] [facility] 14:26:33 FALL SCREEN] of Medicine Future Scheduled 2021-10-06 WOUND CARE Ordered: [facility] Test 14:47:16 INSTRUCTIONS [code = 10/06/2021 of Medi cine 52251] Future Scheduled 2021-09-26 [facility] DEBRIDEMENT, Ordered: [facility] Test 23:56:57 SKIN, SUB-Q 09/26/2021 of Medicine TISSUE,=<20 SQ CM [code = 24832] Future Scheduled 2021-09-26 TETANUS SHOT (ADULT) [employer] [facility] 23:48:33 [code = TETANUS SHOT of Medi cine (ADULT)] Future Scheduled 2021-09-26 Diabetic foot [facility] Test 23:48:33 examination of Medicine (regime/therapy) [code = 877059427] Future Scheduled 2021-09-26 ANNUAL DIABETIC [facility] Test 23:48:33 RETINOPATHY of Medicine SCREENING [code = ANNUAL DIABETIC RETINOPATHY SCREENING] Future Scheduled 2021-09-26 ZOSTER VACCINE (1 of [employer] Test 23:48:33 2) [code = ZOSTER of Medicin e VACCINE (1 of 2)] Future Scheduled 2021-09-26 Screening for [facility] Test 23:48:33 osteoporosis of Medicine (procedure) [code = 339902147] Future Scheduled 2021-09-26 Pneumococcal 65+ (1 [employer] Test 23:48:33 of 1 - PPSV23) [code of Medi cine = Pneumococcal 65+ (1 of 1 - PPSV23)] Future Scheduled 2021-09-26 MEDICARE AWV Last [facility] Test 23:48:33 (Initial) [code = of Medicin e MEDICARE AWV (Initial)] Future Scheduled 2021-09-26 FLU VACCINE > 6 [facility] Test 23:48:33 MONTHS [code = FLU of Medici ne VACCINE > 6 MONTHS] Future Scheduled 2021-09-26 COVID-19 Vaccine (3 [employer] Test 23:48:33 - Booster for Pfizer of Medi cine series) [code = COVID-19 Vaccine (3 - Booster for Pfizer series)] Future Scheduled 2021-09-26 FALL SCREEN [code = [employer] [facility] 23:48:33 FALL SCREEN] of Medicine Future Scheduled 2021-09-23 WOUND CARE Ordered: [facility] Test 10:46:31 INSTRUCTIONS [code = 09/23/2021 of Medi cine 44245] Future Scheduled 2021-09-23 XR FOOT RIGHT 1 Occurrences [facility] Test 10:36:27 (COMPLETE) [code = [place] [address]-7] 09/23/2021 until 09/23/2022 Future Scheduled 2021-08-03 Pneumococcal 65+ (1 [employer] Test 14:29:05 of 2 - PPSV23) [code of Medi cine = Pneumococcal 65+ (1 of 2 - PPSV23)] Future Scheduled 2021-08-03 TETANUS SHOT (ADULT) [facility] Test 14:29:05 [code = TETANUS SHOT of Medi cine (ADULT)] Future Scheduled 2021-08-03 Diabetic foot [facility] Test 14:29:05 examination of Medicine (regime/therapy) [code = 433304941] Future Scheduled 2021-08-03 ANNUAL DIABETIC [facility] Test 14:29:05 RETINOPATHY of Medicine SCREENING [code = ANNUAL DIABETIC RETINOPATHY SCREENING] Future Scheduled 2021-08-03 ZOSTER VACCINE (1 of [employer] [facility] 14:29:05 2) [code = ZOSTER of Medicin e VACCINE (1 of 2)] Future Scheduled 2021-08-03 Screening for [facility] Test 14:29:05 osteoporosis of Medicine (procedure) [code = 482857606] Future Scheduled 2021-08-03 MEDICARE AWV [facility] Test 14:29:05 (Initial) [code = of Medicin e MEDICARE AWV (Initial)] Future Scheduled 2021-08-03 FLU VACCINE > 6 [facility] Test 14:29:05 MONTHS [code = FLU of Medici ne VACCINE > 6 MONTHS] Future Scheduled 2021-08-03 COVID-19 Vaccine (3 [employer] Test 14:29:05 - Booster for Pfizer of Medi cine series) [code = COVID-19 Vaccine (3 - Booster for Pfizer series)] Future Scheduled 2021-08-03 FALL SCREEN [code = [employer] [facility] 14:29:05 FALL SCREEN] of Medicine Future Scheduled 2021-07-26 [facility] DEBRIDEMENT OPEN Ordered: [employer] Test 17:08:54 WOUND 20 SQ CM< 07/26/2021 of Medicine [code = 45069] Future Scheduled 2021-07-26 Pneumococcal 65+ (1 [employer] Test 17:03:52 of 2 - PPSV23) [code of Medi cine = Pneumococcal 65+ (1 of 2 - PPSV23)] Future Scheduled 2021-07-26 TETANUS SHOT (ADULT) [employer] [facility] 17:03:52 [code = TETANUS SHOT of Medi cine (ADULT)] Future Scheduled 2021-07-26 Diabetic foot [facility] Test 17:03:52 examination of Medicine (regime/therapy) [code = 464174404] Future Scheduled 2021-07-26 ANNUAL DIABETIC [facility] Test 17:03:52 RETINOPATHY of Medicine SCREENING [code = ANNUAL DIABETIC RETINOPATHY SCREENING] Future Scheduled 2021-07-26 ZOSTER VACCINE (1 of [employer] [facility] 17:03:52 2) [code = ZOSTER of Medicin e VACCINE (1 of 2)] Future Scheduled 2021-07-26 Screening for Last [facility] Test 17:03:52 osteoporosis of Medicine (procedure) [code = 892783860] Future Scheduled 2021-07-26 MEDICARE AWV Last [facility] Test 17:03:52 (Initial) [code = of Medicin e MEDICARE AWV (Initial)] Future Scheduled 2021-07-26 FLU VACCINE > 6 [facility] Test 17:03:52 MONTHS [code = FLU of Medici ne VACCINE > 6 MONTHS] Future Scheduled 2021-07-26 COVID-19 Vaccine (3 [employer] [facility] 17:03:52 - Booster for Pfizer of Medi cine series) [code = COVID-19 Vaccine (3 - Booster for Pfizer series)] Future Scheduled 2021-07-26 FALL SCREEN [code = [employer] [facility] 17:03:52 FALL SCREEN] of Medicine Future Scheduled 2021-07-12 Pneumococcal 65+ (1 [employer] Test 15:39:23 of 2 - PPSV23) [code of Medi cine = Pneumococcal 65+ (1 of 2 - PPSV23)] Future Scheduled 2021-07-12 TETANUS SHOT (ADULT) [employer] [facility] 15:39:23 [code = TETANUS SHOT of Medi cine (ADULT)] Future Scheduled 2021-07-12 Diabetic foot [facility] Test 15:39:23 examination of Medicine (regime/therapy) [code = 799653332] Future Scheduled 2021-07-12 ANNUAL DIABETIC [facility] Test 15:39:23 RETINOPATHY of Medicine SCREENING [code = ANNUAL DIABETIC RETINOPATHY SCREENING] Future Scheduled 2021-07-12 ZOSTER VACCINE (1 of [employer] [facility] 15:39:23 2) [code = ZOSTER of Medicin e VACCINE (1 of 2)] Future Scheduled 2021-07-12 Screening for [facility] Test 15:39:23 osteoporosis of Medicine (procedure) [code = 831342098] Future Scheduled 2021-07-12 MEDICARE AWV [facility] Test 15:39:23 (Initial) [code = of Medicin e MEDICARE AWV (Initial)] Future Scheduled 2021-07-12 FLU VACCINE > 6 [facility] Test 15:39:23 MONTHS [code = FLU of Medici ne VACCINE > 6 MONTHS] Future Scheduled 2021-07-12 COVID-19 Vaccine (3 [employer] Test 15:39:23 - Booster for Pfizer of Medi cine series) [code = COVID-19 Vaccine (3 - Booster for Pfizer series)] Future Scheduled 2021-07-12 FALL SCREEN [code = [employer] [facility] 15:39:23 FALL SCREEN] of Medicine Future Scheduled 2021-07-08 [facility] DEBRIDEMENT, Ordered: [facility] Test 10:00:17 SKIN, SUB-Q 07/08/2021 of Medicine TISSUE,=<20 SQ CM [code = 54393] Future Scheduled 2021-07-08 BCM AMB Pneumococcal [employer] [facility] 09:48:50 65+ (testing) (1 of of Medic ine 2 - PPSV23) [code = BCM AMB Pneumococcal 65+ (testing) (1 of 2 - PPSV23)] Future Scheduled 2021-07-08 TETANUS SHOT (ADULT) [employer] [facility] 09:48:50 [code = TETANUS SHOT of Medi cine (ADULT)] Future Scheduled 2021-07-08 Diabetic foot [facility] Test 09:48:50 examination of Medicine (regime/therapy) [code = 498985335] Future Scheduled 2021-07-08 ANNUAL DIABETIC [facility] Test 09:48:50 RETINOPATHY of Medicine SCREENING [code = ANNUAL DIABETIC RETINOPATHY SCREENING] Future Scheduled 2021-07-08 ZOSTER VACCINE (1 of [employer] [facility] 09:48:50 2) [code = ZOSTER of Medicin e VACCINE (1 of 2)] Future Scheduled 2021-07-08 Screening for [facility] Test 09:48:50 osteoporosis of Medicine (procedure) [code = 385368619] Future Scheduled 2021-07-08 MEDICARE AWV [facility] Test 09:48:50 (Initial) [code = of Medicin e MEDICARE AWV (Initial)] Future Scheduled 2021-07-08 FLU VACCINE > 6 [facility] Test 09:48:50 MONTHS [code = FLU of Medici ne VACCINE > 6 MONTHS] Future Scheduled 2021-07-08 COVID-19 Vaccine (3 [employer] Test 09:48:50 - Booster for Pfizer of Medi cine series) [code = COVID-19 Vaccine (3 - Booster for Pfizer series)] Future Scheduled 2021-07-08 FALL SCREEN [code = [employer] [facility] 09:48:50 FALL SCREEN] of Medicine Future Scheduled 2021-07-06 BCM AMB Pneumococcal [employer] [facility] 16:09:56 65+ (testing) (1 of of Medic ine 2 - PPSV23) [code = BCM AMB Pneumococcal 65+ (testing) (1 of 2 - PPSV23)] Future Scheduled 2021-07-06 TETANUS SHOT (ADULT) [employer] [facility] 16:09:56 [code = TETANUS SHOT of Medi cine (ADULT)] Future Scheduled 2021-07-06 Diabetic foot [facility] Test 16:09:56 examination of Medicine (regime/therapy) [code = 448676349] Future Scheduled 2021-07-06 ANNUAL DIABETIC [facility] Test 16:09:56 RETINOPATHY of Medicine SCREENING [code = ANNUAL DIABETIC RETINOPATHY SCREENING] Future Scheduled 2021-07-06 ZOSTER VACCINE (1 of [employer] [facility] 16:09:56 2) [code = ZOSTER of Medicin e VACCINE (1 of 2)] Future Scheduled 2021-07-06 Screening for [facility] Test 16:09:56 osteoporosis of Medicine (procedure) [code = 563877670] Future Scheduled 2021-07-06 MEDICARE AWV [facility] Test 16:09:56 (Initial) [code = of Medicin e MEDICARE AWV (Initial)] Future Scheduled 2021-07-06 FLU VACCINE > 6 [facility] Test 16:09:56 MONTHS [code = FLU of Medici ne VACCINE > 6 MONTHS] Future Scheduled 2021-07-06 COVID-19 Vaccine (3 [employer] Test 16:09:56 - Booster for Pfizer of [employer]! series) [code = COVID-19 Vaccine (3 - Booster for Pfizer series)] Future Scheduled 2021-07-06 FALL SCREEN [code = [employer] [facility] 16:09:56 FALL SCREEN] of Medicine Future Scheduled 2021-07-02 WOUND CARE Ordered: [facility] Test 09:53:01 INSTRUCTIONS [code = 07/02/2021 of CatchMe! 19191] Future Scheduled 2021-04-27 [facility] DEBRIDEMENT, Ordered: [facility] C [employer]lege Test 09:59:52 SKIN, SUB-Q 04/27/2021 of Medicine TISSUE,=<20 SQ CM [code = 30237] Future Scheduled 2021-04-27 VA DEBRIDEMENT OF Ordered: [facility] [employer] Test 09:59:52 NAIL(S), 1-5 [code = 04/27/2021 of CatchMe! 99137] Future Scheduled 2021-04-27 TETANUS SHOT (ADULT) [employer] Test 09:54:40 [code = TETANUS SHOT of CatchMe! (ADULT)] Future Scheduled 2021-04-27 Diabetic foot Last Col lege Test 09:54:40 examination of Medicine (regime/therapy) [code = 337465275] Future Scheduled 2021-04-27 ANNUAL DIABETIC [facility] [employer] Test 09:54:40 RETINOPATHY of Medicine SCREENING [code = ANNUAL DIABETIC RETINOPATHY SCREENING] Future Scheduled 2021-04-27 ZOSTER VACCINE (1 of [employer] Test 09:54:40 2) [code = ZOSTER of Medicin e VACCINE (1 of 2)] Future Scheduled 2021-04-27 FALL SCREEN [code = [facility] Test 09:54:40 FALL SCREEN] of Medicine Future Scheduled 2021-04-27 Screening for [facility] Col lege Test 09:54:40 osteoporosis of Medicine (procedure) [code = 292150621] Future Scheduled 2021-04-27 MEDICARE AWV [facility]elyn [employer] Test 09:54:40 (Initial) [code = of Medicin e MEDICARE AWV (Initial)] Future Scheduled 2021-04-27 FLU VACCINE > 6 [facility] C [facility] Test 09:54:40 MONTHS [code = FLU of Medici ne VACCINE > 6 MONTHS] Future Scheduled 2021-04-23 WOUND CARE Ordered: [facility] [employer] Test 11:19:33 INSTRUCTIONS [code = 04/23/2021 of Medi [employer] 84625] Future Scheduled 2021-04-23 XR FOOT RIGHT 1 Occurrences [facility] [employer] Test 10:45:43 (COMPLETE) [code = [place] [address]-8] 04/23/2021 until 04/23/2022 Future Scheduled 2021-04-23 XR FOOT RIGHT 1 Occurrences [facility] [employer] Test 10:45:43 (COMPLETE) [code = [place] [address]-9] 04/23/2021 until 04/23/2022 Future Scheduled 2021-04-23 US ARTERIAL LEGS 1 Occurrences [facility] Test 10:45:43 BILATERAL [code = starting of Medicin e 24549-5] 04/23/2021 until 04/23/2022 Future Scheduled 2021-02-24 TETANUS SHOT (ADULT) [facility] Test 10:06:42 [code = TETANUS SHOT of Medi cine (ADULT)] Future Scheduled 2021-02-24 Diabetic foot [facility] Col lege Test 10:06:42 examination of Medicine (regime/therapy) [code = 281300047] Future Scheduled 2021-02-24 ANNUAL DIABETIC [facility] [employer] Test 10:06:42 RETINOPATHY of Medicine SCREENING [code = ANNUAL DIABETIC RETINOPATHY SCREENING] Future Scheduled 2021-02-24 Hepatitis C [facility] [employer] [employer] Test 10:06:42 screening of Medicine (procedure) [code = 975913200] Future Scheduled 2021-02-24 ZOSTER VACCINE (1 of [employer] Test 10:06:42 2) [code = ZOSTER of Medicin e VACCINE (1 of 2)] Future Scheduled 2021-02-24 FALL SCREEN [code = [facility] [place] Test 10:06:42 FALL SCREEN] of Medicine Future Scheduled 2021-02-24 Screening for [facility] Col lege Test 10:06:42 osteoporosis of Medicine (procedure) [code = 795179131] Future Scheduled 2021-02-24 MEDICARE AWV [facility] [employer] Test 10:06:42 (Initial) [code = of Medicin e MEDICARE AWV (Initial)] Future Scheduled 2021-02-24 FLU VACCINE > 6 [facility] [employer] Test 10:06:42 MONTHS [code = FLU of Medici ne VACCINE > 6 MONTHS] Future Scheduled 2021-01-04 COVID-19 VACCINE ([address] [facility] Test 00:00:00 - Booster for Medical Center Clinic Center series) [code = COVID-19 VACCINE (3 - Booster for Pfizer series)] Future Scheduled 2020-03-[address] [facility] [address] [facility] Test 00:[facility]:00 measurement Medical Center (procedure) [code = 14636147] Future Scheduled [address] [facility] Test 00:00:00 WELLNESS (YEAR 2 or Medical Center FIRST YEAR if no IPPE) [code = MEDICARE ANNUAL WELLNESS (YEAR 2 or FIRST YEAR if no IPPE)] Future Scheduled 1991 SHINGLES VACCINES ([address] [facility] Test 00:00:00 of 2) [code = Medical Center SHINGLES VACCINES (1 of 2)] Future Scheduled 1960 DTAP/TDAP/TD [facility] Test 00:[facility] VACCINES (1 - Tdap) Medical Center [code = DTAP/TDAP/TD VACCINES (1 - Tdap)] Future Scheduled [address] DIABETIC EYE EXAM [facility] Test 00:00:00 [code = DIABETIC EYE Medical Center EXAM] Future Scheduled 1951 Urine screening for [facility] Test 00:00:00 protein (procedure) Medical Center [code = 042346348] Future Scheduled 1941 DXA SCAN [code = DXA [facility] Test 00:00:00 SCAN] Medical Center Future Scheduled MEDICARE AWV [code = [facility] Test MEDICARE AWV] of Medicine Future Scheduled TETANUS SHOT (ADULT) [employer] [code = TETANUS SHOT of Medi cine (ADULT)] Future Scheduled Diabetic foot [facility] Col lege Test examination of Medicine (regime/therapy) [code = 236505991] Future Scheduled ANNUAL DIABETIC [facility] [employer] Test RETINOPATHY of Medicine SCREENING [code = ANNUAL DIABETIC RETINOPATHY SCREENING] Future Scheduled FALL SCREEN [code = [employer] [facility] FALL SCREEN] of Medicine Future Scheduled OSTEOPOROSIS [facility] [employer] Test SCREENING [code = of Medicin e OSTEOPOROSIS SCREENING] Future Scheduled PNEUMOVAX >=65 Last Co llege Test (PPSV23) [code = of Medicine PNEUMOVAX >=65 (PPSV23)] Future Scheduled PREVNAR >= 65 Last Col lege Test (PCV13) [code = of Medicine PREVNAR >= 65 (PCV13)] Future Scheduled FLU VACCINE > 6 [facility] C [employer]lege Test MONTHS [code = FLU of Medici ne VACCINE > 6 MONTHS] Future Scheduled TETANUS SHOT (ADULT) [employer] [facility] [code = TETANUS SHOT of Medi cine (ADULT)] Future Scheduled Diabetic foot [facility] Col lege Test examination of Medicine (regime/therapy) [code = 928390087] Future Scheduled ANNUAL DIABETIC Last C [facility]lege Test RETINOPATHY of Medicine SCREENING [code = ANNUAL DIABETIC RETINOPATHY SCREENING] Future Scheduled ZOSTER VACCINE (1 of [employer] Test 2) [code = ZOSTER of Medicin e VACCINE (1 of 2)] Future Scheduled FALL SCREEN [code = [employer] [facility] FALL SCREEN] of Medicine Future Scheduled OSTEOPOROSIS [facility] [employer] Test SCREENING [code = of Medicin e OSTEOPOROSIS SCREENING] Future Scheduled PNEUMOVAX >=65 Last Co llege Test (PPSV23) [code = of Medicine PNEUMOVAX >=65 (PPSV23)] Future Scheduled MEDICARE AWV [facility] [employer] Test (Initial) [code = of Medicin e MEDICARE AWV (Initial)] Future Scheduled FLU VACCINE > 6 Last C ollege Test MONTHS [code = FLU of Medici ne VACCINE > 6 MONTHS] Future Scheduled TETANUS SHOT (ADULT) [employer] Test [code = TETANUS SHOT of Medi cine (ADULT)] Future Scheduled Diabetic foot Last Col [facility]ge Test examination of Medicine (regime/therapy) [code = 880711759] Future Scheduled ANNUAL DIABETIC Last C [facility]lege Test RETINOPATHY of Medicine SCREENING [code = ANNUAL DIABETIC RETINOPATHY SCREENING] Future Scheduled HEPATITIS C Last Evelyn ege Test SCREENING [code = of Medicin e HEPATITIS C SCREENING] Future Scheduled ZOSTER VACCINE (1 of [employer] Test 2) [code = ZOSTER of Medicin e VACCINE (1 of 2)] Future Scheduled FALL SCREEN [code = [employer] [facility] FALL SCREEN] of Medicine Future Scheduled OSTEOPOROSIS [facility] Test SCREENING [code = of Medicin e OSTEOPOROSIS SCREENING] Future Scheduled PNEUMOVAX >=65 [facility] Co [employer]lege Test (PPSV23) [code = of Medicine PNEUMOVAX >=65 (PPSV23)] Future Scheduled MEDICARE AWV [facility] Test (Initial) [code = of Medicin e MEDICARE AWV (Initial)] Future Scheduled FLU VACCINE > 6 [facility] C [facility]lege Test MONTHS [code = FLU of Medici ne VACCINE > 6 MONTHS] Future Scheduled TETANUS SHOT (ADULT) [employer] Test [code = TETANUS SHOT of Medi cine (ADULT)] Future Scheduled Diabetic foot Last Col [facility] Test examination of Medicine (regime/therapy) [code = 613790400] Future Scheduled ANNUAL DIABETIC Last C [facility]lege Test RETINOPATHY of Medicine SCREENING [code = ANNUAL DIABETIC RETINOPATHY SCREENING] Future Scheduled Hepatitis C [facility] [employer] Test screening of Medicine (procedure) [code = 971456140] Future Scheduled ZOSTER VACCINE (1 of [employer] Test 2) [code = ZOSTER of Medicin e VACCINE (1 of 2)] Future Scheduled FALL SCREEN [code = [employer] FALL SCREEN] of Medicine Future Scheduled Screening for [facility] Col lege Test osteoporosis of Medicine (procedure) [code = 380369191] Future Scheduled MEDICARE AWV [facility] [employer] Test (Initial) [code = of Medicin e MEDICARE AWV (Initial)] Future Scheduled FLU VACCINE > 6 [facility] C [employer]lege Test MONTHS [code = FLU of Medici ne VACCINE > 6 MONTHS] Future Scheduled MEDICARE AWV [code = [employer] [facility] MEDICARE AWV] of Medicine Future Scheduled TETANUS SHOT (ADULT) [employer] Test [code = TETANUS SHOT of Medi cine (ADULT)] Future Scheduled Diabetic foot [facility] Col lege Test examination of Medicine (regime/therapy) [code = 058440954] Future Scheduled ANNUAL DIABETIC [facility] [employer] Test RETINOPATHY of Medicine SCREENING [code = ANNUAL DIABETIC RETINOPATHY SCREENING] Future Scheduled FALL SCREEN [code = [employer] FALL SCREEN] of Medicine Future Scheduled OSTEOPOROSIS [facility] [employer] Test SCREENING [code = of Medicin e OSTEOPOROSIS SCREENING] Future Scheduled PNEUMOVAX >=65 [facility] Co [employer]lege Test (PPSV23) [code = of Medicine PNEUMOVAX >=65 (PPSV23)] Future Scheduled PREVNAR >= 65 Last Col lege Test (PCV13) [code = of Medicine PREVNAR >= 65 (PCV13)] Future Scheduled FLU VACCINE > 6 [facility] C [employer]lege Test MONTHS [code = FLU of Medici ne VACCINE > 6 MONTHS] Future Scheduled MEDICARE AWV [code = [employer] [facility] MEDICARE AWV] of Medicine Future Scheduled TETANUS SHOT (ADULT) [employer] Test [code = TETANUS SHOT of Medi cine (ADULT)] Future Scheduled Diabetic foot [facility] Col lege Test examination of Medicine (regime/therapy) [code = 896538384] Future Scheduled ANNUAL DIABETIC [facility] [employer]lege Test RETINOPATHY of Medicine SCREENING [code = ANNUAL DIABETIC RETINOPATHY SCREENING] Future Scheduled FALL SCREEN [code = [employer] FALL SCREEN] of Medicine Future Scheduled OSTEOPOROSIS [facility] [employer] Test SCREENING [code = of Medicin e OSTEOPOROSIS SCREENING] Future Scheduled PNEUMOVAX >=65 Last Co llege Test (PPSV23) [code = of Medicine PNEUMOVAX >=65 (PPSV23)] Future Scheduled PREVNAR >= 65 Last Col lege Test (PCV13) [code = of Medicine PREVNAR >= 65 (PCV13)] Future Scheduled FLU VACCINE > 6 Last C ollege Test MONTHS [code = FLU of Medici ne VACCINE > 6 MONTHS] Future Scheduled MRI INTERNAL 1 Occurrences Last Col lege Test AUDITORY CANALS starting of Medicine (IAC) W W/O CO [code 05/09/2019 until = 83118-1] 05/09/[address] TEMPORAL BONES 1 Occurrences [employer] Test W/O CONTRAST [code = starting of Medi cine 01743-0] 05/09/2019 until 12/08/2019 Encounters Start End Encounter Admission Attending Care Care Encounter Source Date/Time Date/Time Type Type Clinicians Facility Department ID 2021-09-22 Outpatient [facility] [id number] Common 12:31:29 [id number] [facility] 2021-09-22 Outpatient [facility] [id number] Common 12:25:37 [id number] [facility] 2021-09-22 Outpatient [facility] [id number] Common 12:20:32 [id number] [facility] 2021-06-04 Outpatient LIDIA [facility] [id number] [facility] 18:36:54 FAITH 2022-12-05 2022-12-05 Outpatient DHIRAJ [facility] [id number] [facility] 09:43:27 14:03:39 SPARTA Krystyna chapman of Medicin e 2022-11-24 2022-11-24 Outpatient GURINDER HEARN [facility] Surgery [id number] [facility] 07:57:00 12:59:00 SPART[place] 2022-11-24 2022-11-24 [facility] [id number] 07:57:00 12:59:00 Encounter [facility] 2022-11-24 2022-11-24 Surgery Dhiraj [facility] [id number] 09:00:00 11:35:00 [facility] 2022-11-24 2022-11-24 [facility] [id number] 09:56:00 11:14:00 Event Jr [facility] 2022-11-24 2022-11-24 Travel [facility] [id number] [facility] 00:00[facility]00 00:00:00 [facility] 2022-11-21 2022-11-[address] [facility] [id number] [facility] 00:00:00 00:00:00 [place] 2022-11-21 2022-11-21 Travel [facility] [id number] [facility] 00:[facility]00 00:00:00 [facility] 2022-11-16 2022-11-16 [id number] 10:14:24 23:59:00 SPARTA 2022-11-16 2022-11-16 [facility] Dhiraj [facility] [id number] 10:14:24 23:59:00 Encounter [facility] 2022-11-16 2022-11-16 Outpatient EL [facility] SLE [id number] SLE 10:13:46 10:13:46 2022-11-16 2022-11-[address] [facility] [id number] [facility] 10:15:02 10:13:00 JOSE 2022-11-16 2022-11-16 Hospital Dhiraj [facility] [id number] 10:00:00 10:13:00 Encounter [facility] 2022-11-16 2022-11-16 Orders [facility] [id number] 00:00:00 00:00:00 Only [facility] 2022-11-07 2022-11-07 Office YAMILA Hearn 1.2.840.114 [id number] [facility] 09:30:00 13:43:40 Visit Jose A AMBULATOR 350.1.13.21 College Y 0.2.7.2.686 of [id number] [facility] claude 825 e 2022-08-16 2022-08-26 Office YAMILA HEARN 1.2.840.114 [id number] [facility] 14:42:44 19:30:45 Visit JOSE AMBULATOR 350.1.13.21 College Y 0.2.7.2.686 of [id number] [facility] claude 825 e 2022-08-16 2022-08-16 Outpatient [facility] [id number] [facility] 14:28:05 14:28:05 Colleg e of Medicin e 2022-08-16 2022-08-16 Orders Arnel [facility] [id number] 00:00:00 00:00:00 Only [facility] 2022-08-05 2022-08-05 Office YAMILA HEARN 1.2.840.114 [id number] [facility] 14:23:14 15:09:09 Visit JOSE AMBULATOR 350.1.13.21 College Y 0.2.7.2.686 of [id number] [facility] claude 825 e 2022-07-28 2022-07-28 Outpatient [facility] [id number] [facility] 07:33:00 23:59:00 Erica 2022-07-28 2022-07-28 Outpatient GAVI SANTIAGO Surgery [id number] [facility] 07:33:00 14:18:00 JOSE 2022-07-28 2022-07-28 Hospital Dhiraj [facility] [id number] 07:33:00 14:18:00 Encounter [facility] 2022-07-28 2022-07-28 [facility] [id number] 10:30:00 13:00:00 [facility] 2022-07-28 2022-07-28 Anesthesia Jacqueline Shoaiborquidea Rose [facility] [id number] 10:29:00 12:58:00 Event Rj Osullivan [facility] 2022-07-28 2022-07-28 Travel [facility] [id number] [facility] 00:00:00 00:00:00 [facility] 2022-07-27 2022-07-27 Outpatient GAVI SANTIAGO [facility] [id number] [facility] 00:00:00 00:00:00 JOSE 2022-07-19 2022-07-19 Office YAMILA Nelson [id number] [facility] 14:00:00 15:44:10 Visit Joshua AMBULATOR 350.1.13.21 College Cenea Y 0.2.7.2.686 of [id number] [facility] 825 e 2022-07-19 2022-07-19 Office YAMILA HEARN 1.2.840.114 [id number] [facility] 14:00:23 15:23:49 Visit JOSE AMBULATOR 350.1.13.21 College Y 0.2.7.2.686 of [id number] [facility] 825 e 2022-07-08 2022-07-08 Office YAMILA HEARN 1.2.840.114 [id number] [facility] 11:16:54 12:47:58 Visit JOSE AMBULATOR 350.1.13.21 College Y 0.2.7.2.686 of [id number] Medi claude 825 e 2022-06-17 2022-06-17 Outpatient [facility] [id number] [facility] 14:57:54 14:57:54 Colleg e of Medicin e 2022-06-17 2022-06-17 Office YAMILA Seals 1.2.726.115 [id number] [facility] 14:30:00 14:51:19 Visit Jose Alejandro AMBULATOR [facility].1.13.21 [facility] 0.2.7.2.686 of [id number] [facility] claude 825 e 2022-06-17 2022-06-[address] [id number] 00:00:00 00:00:00 Only Jose Alejandro [facility] 2022-05-18 2022-05-18 Office YAMILA Hearn 1.2.840.114 [id number] [facility] 14:00:00 15:07:22 Visit Jose A AMBULATOR 350.1.13.21 College Y 0.2.7.2.686 of [id number] [facility] claude 825 e 2022-03-01 2022-03-01 Office YAMILA Rowell 1.2.840.114 [id number] [facility] 16:00:00 16:15:00 Visit Osman Roberto AMBULATOR 350.1.13.21 College Y 0.2.7.2.686 of [id number] [facility] claude 825 e 2022-03-01 2022-03-01 Office YAMILA HEARN 1.2.840.114 [id number] [facility] 14:16:26 14:16:26 Visit JOSE AMBULATOR 350.1.13.21 College Y 0.2.7.2.686 of [id number] Medi claude 825 e 2022-03-01 2022-03-01 Outpatient [facility] [id number] [facility] 14:15:16 14:15:16 Colleg e of Medicin e 2021-12-28 2021-12-28 Office YAMILA Hearn 1.2.840.114 [id number] [facility] 13:30:00 15:13:49 Visit Jose A AMBULATOR 350.1.13.21 College Y 0.2.7.2.686 of [id number] [facility] claude 825 e 2021-11-16 2021-11-16 Office YAMILA Hearn 1.2.840.114 [id number] [facility] 13:30:00 15:09:34 Visit Jose A AMBULATOR 350.1.13.21 College Y 0.2.7.2.686 of [id number] [facility] claude 825 e 2021-10-06 2021-10-06 Office YAMILA HEARN 1.2.840.114 [id number] [facility] 12:54:00 14:43:44 Visit JOSE AMBULATOR 350.1.13.21 College Y 0.2.7.2.686 of [id number] [facility] claude 825 e 2021-09-23 2021-09-23 Outpatient [facility] [id number] [facility] 11:12:09 11:12:09 Krystyna chapman of Medicin e 2021-09-23 2021-09-23 Office YAMILA Hearn 1.2.840.114 [id number] [facility] 10:00:00 10:58:36 Visit Jose A AMBULATOR 350.1.13.21 College Y 0.2.7.2.686 of [id number] [facility] claude 825 e 2021-09-03 2021-09-03 [facility] [id number] [facility] 08:35:37 09:41:21 JANAY Greenwood e of Medicin e 2021-08-03 2021-08-03 Office YAMILA ROWELL 1.2.840.114 [id number] [facility] 12:53:35 15:58:55 Visit OSMAN AMBULATOR 350.1.13.21 College Y 0.2.7.2.686 of [id number] [facility] claude 825 e 2021-07-20 2021-07-20 Office YAMILA Hearn 1.2.840.114 [id number] [facility] 15:00:00 16:53:35 Visit Jose A AMBULATOR 350.1.13.21 College Y 0.2.7.2.686 of [id number] Medi claude 825 e 2021-07-06 2021-07-06 Office YAMILA Hearn 1.2.840.114 [id number] [facility] 15:30:00 16:35:54 Visit Jose A AMBULATOR 350.1.13.21 College Y 0.2.7.2.686 of [id number] [facility] claude 825 e 2021-07-06 2021-07-06 Office YAMILA ROWELL 1.2.840.114 [id number] [facility] 13:36:00 16:29:54 Visit OSMAN AMBULATOR 350.1.13.21 College Y 0.2.7.2.686 of [id number] [facility] claude 825 e 2021-07-06 2021-07-06 Outpatient [facility] [id number] [facility] 13:35:43 14:43:37 Krystyna chapman of Medicin e 2021-07-02 2021-07-02 Office YAMILA Hearn 1.2.840.114 [id number] [facility] 09:00:00 10:42:27 Visit Jose A AMBULATOR 350.1.13.21 College Y 0.2.7.2.686 of [id number] [facility] claude 825 e 2021-07-01 2021-07-01 Outpatient YAMILA SEXTON [facility] [id number] [facility] 12:09:43 13:13:14 JANAY chapman of Medicin e 2021-06-18 2021-06-18 Outpatient ER MERCHANT [facility] Emergency [id number] [facility] 12:32:00 17:53:00 GABY 2021-04-23 2021-04-23 Office YAMILA Hearn 1.2.840.114 [id number] [facility] 09:40:00 11:27:32 Visit Jose A AMBULATOR 350.1.13.21 College Y 0.2.7.2.686 of [id number] [facility] claude 825 e 2021-04-23 2021-04-[address] [facility] [id number] [facility] 00:00:00 00:00:00 JOSE ALEJANDRO 2021-03-02 2021-03-02 Outpatient NITZA SEXTONM BCM [id number] [facility] 12:10:29 13:30:12 JANAY chapman of Medicin e 2021-02-24 2021-02-24 Office YAMILA Berry 1.2.840.114 [id number] [facility] 09:26:11 10:34:29 Visit Faith Lockwood AMBULATOR 350.1.13.21 College Y 0.2.7.2.686 of [id number] Medi claude 800 e 2020-12-04 2020-12-04 Outpatient SEXTON, [facility] [id number] [facility] 08:42:08 11:45:10 JANAY chapman of Medicin e 2020-11-25 2020-11-25 Office YAMILA Berry 1.2.840.114 [id number] [facility] 08:34:15 09:53:27 Visit Faith Lockwood AMBULATOR 350.1.13.21 College Y 0.2.7.2.686 of [id number] Medi claude 800 e 2020-11-25 2020-11-25 Outpatient SEXTON, [facility] [id number] [facility] 09:10:34 09:53:20 JANAY chapman of Medicin e 2020-10-20 2020-10-20 Outpatient EL [facility] [id number] [facility] 00:00:00 00:00:00 2020-10-20 2020-10-20 Outpatient EL [facility] [id number] [facility] 00:00:00 00:00:00 2020-10-20 2020-10-20 Outpatient EL [facility] [id number] [facility] 00:00:00 00:00:00 2020-10-16 2020-10-16 Outpatient EL [facility] [id number] [facility] 00:00:00 00:00:00 2020-09-23 2020-09-23 Outpatient EL [facility] [id number] [facility] 00:00:00 00:00:00 2020-09-17 2020-09-17 Emergency X [facility] ERT [id number] [facility]56[facility] 2020-[facility]-11 2020-09-11 Outpatient [facility] [id number] [facility] 00:00:00 00:00:00 2020-06-11 2020-06-11 Office YAMILA Berry 1.2.840.114 [id number] [facility] 14:40:32 16:01:39 Visit Faith D AMBULATOR 350.1.13.21 College Y 0.2.7.2.686 of [id number] Medi claude 800 e 2020-04-08 2020-04-08 Office YAMILA Berry 1.2.840.114 [id number] [facility] 10:38:43 10:56:37 Visit Faith D AMBULATOR 350.1.13.21 College Y 0.2.7.2.686 of [id number] Medi claude 800 e 2019-11-26 2019-11-26 Outpatient Raju_P [facility] [id number] [place] 10:46:00 10:46:00 [id number] [facility] 2019-09-09 2019-09-10 Emergency X HYDE, [facility] ERT [id number] [facility] 20:30:50 00:00:00 BILL ayala [facility] 2019-05-30 2019-05-30 Office YAMILA Berry [id number] [id number] [facility] 10:36:26 12:31:36 Visit Faith D AMBULATOR 350.1.13.21 College Y 0.2.7.2.686 of [id number] Medi claude 800 e 2019-05-09 2019-05-09 Office YAMILA Berry 1.2.840.114 [id number] [facility] 11:11:11 12:41:34 Visit Faith D AMBULATOR 350.1.13.21 College Y 0.2.7.2.686 of [id number] Medi claude 800 e 2019-04-03 2019-04-03 Office YAMILA Berry 1.2.840.114 [id number] [facility] 10:30:20 11:38:17 Visit Faith D AMBULATOR 350.1.13.21 College Y 0.2.7.2.686 of [id number] Medi claude 800 e Results Test Description Test Time Test Comments Results Result Comments Source Anaerobic Culture 2022-11-30 15:46:07 Test Item Value Reference Range Interpretation Comme nts Result (test code = 6463-4) 2+ Peptoniphilus asaccharolyticus A Lab Interpretation (test code = 68586-5) [facility]normal [facility] [id number] 15:46:07 Test Item Value Reference Range Interpretation Comments CULTURE (BEAKER) A 2+ Peptonip hilus (test code = 1095) asaccharo lyticus SURGICALLY OBTAINED CULTURE + GRAM [id number] 12:03:23 Test Item Value Reference Range Interpretation Comments CULTURE (BEAKER) (test PSEUDOMONAS A 4+ Ps eudomonas code = 1095) AERUGINOSA aeruginosa Amikacin (test code = See_Comment S [Auto mated 1) message] The system which generated this result transmitted reference range : Susceptible 0-1 6 , Resistant <0 or >16 . The reference range was not used to interpret this result as normal/abnormal . Aztreonam (test code = See_Comment S [Aut omated 32) message] The system which generated this result transmitted reference range : Susceptible 0-8 , Resistant <0 or >8 . The reference range was not used to interpret this result as normal/abnormal . Cefepime (test code = See_Comment S [Auto mated 51) message] The system which generated this result transmitted reference range : Susceptible 0-8 , Resistant <0 or >8 . The reference range was not used to interpret this result as normal/abnormal . Ceftazidime (test code See_Comment S [Aut omated = 27) message] The system which generated this result transmitted reference range : Susceptible 0-8 , Resistant <0 or >8 . The reference range was not used to interpret this result as normal/abnormal . Ciprofloxacin (test See_Comment S [Automa katy code = 7) message] The system which generated this result transmitted reference range : Susceptible 0-0.5 , Resistant <0 or >.5 . The reference range was not used to interpret this result as normal/abnormal . Gentamicin (test code See_Comment S [Auto mated = 18) message] The system which generated this result transmitted reference range : Susceptible 0-4 , Resistant <0 or >4 . The reference range was not used to interpret this result as normal/abnormal . Levofloxacin (test See_Comment S [Automat ed code = 22) message] The system which generated this result transmitted reference range : Susceptible 0-1 , Resistant <0 or >1 . The reference range was not used to interpret this result as normal/abnormal . Meropenem (test code = See_Comment S [Aut omated 34) message] The system which generated this result transmitted reference range : Susceptible 0-2 , Resistant <0 or >2 . The reference range was not used to interpret this result as normal/abnormal . Piperacillin (test See_Comment S [Automat ed code = 24) message] The system which generated this result transmitted reference range : Susceptible 0-1 6 , Resistant <0 or >16 . The reference range was not used to interpret this result as normal/abnormal . Piperacillin + See_Comment S [Automated Tazobactam (test code messag e] The = 29) system which generated this result transmitted reference range : Susceptible 0-1 6 , Resistant <0 or >16 . The reference range was not used to interpret this result as normal/abnormal . Tobramycin (test code See_Comment S [Auto mated = 25) message] The system which generated this result transmitted reference range : Susceptible 0-4 , Resistant <0 or >4 . The reference range was not used to interpret this result as normal/abnormal . CULTURE (BEAKER) (test KLEBSIELLA A 2+ Kl ebsiella code = 1095) OXYTOCA oxytoca Amikacin (test code = S 1) Ampicillin + Sulbactam S (test code = 6) Aztreonam (test code = S 32) Cefepime (test code = S 51) Cefoxitin (test code = S 68) Ceftazidime (test code S = 27) Ceftriaxone (test code S = 52) Ertapenem (test code = S 38) Gentamicin (test code S = 18) Levofloxacin (test S code = 22) Meropenem (test code = S 34) Nitrofurantoin (test S code = 23) Piperacillin + S Tazobactam (test code = 29) Tetracycline (test S code = 2) Tobramycin (test code S = 25) Trimethoprim + S Sulfamethoxazole (test code = 47) CULTURE (BEAKER) (test KLEBSIELLA A 1+ Kl ebsiella code = 1095) OXYTOCA oxytocaof a second type Amikacin (test code = S 1) Ampicillin + Sulbactam S (test code = 6) Aztreonam (test code = S 32) Cefepime (test code = S 51) Cefoxitin (test code = S 68) Ceftazidime (test code S = 27) Ceftriaxone (test code S = 52) Ertapenem (test code = S 38) Gentamicin (test code S = 18) Levofloxacin (test S code = 22) Meropenem (test code = S 34) Nitrofurantoin (test S code = 23) Piperacillin + S Tazobactam (test code = 29) Tetracycline (test S code = 2) Tobramycin (test code S = 25) Trimethoprim + S Sulfamethoxazole (test code = 47) CULTURE (BEAKER) (test PROTEUS MIRABILIS A <1+ Proteus code = 1095) mirabilis Amikacin (test code = S 1) Ampicillin + Sulbactam S (test code = 6) Aztreonam (test code = S 32) Cefepime (test code = S 51) Cefoxitin (test code = S 68) Ceftazidime (test code S = 27) Ceftriaxone (test code S = 52) Ertapenem (test code = S 38) Gentamicin (test code S = 18) Levofloxacin (test S code = 22) Meropenem (test code = S 34) Nitrofurantoin (test R code = 23) Piperacillin + S Tazobactam (test code = 29) Tetracycline (test R code = 2) Tobramycin (test code S = 25) Trimethoprim + S Sulfamethoxazole (test code = 47) GRAM STAIN RESULT <1+ White blood (BEAKER) (test code = cells seen 1123) GRAM STAIN RESULT No organisms seen (BEAKER) (test code = 491390) 4+ Skin floraSPIN/CONCENTRATION [id number] 06:22:25 Test Item Value Reference Range Interpretation Comments Concentration charged (test code = Done 0318) [facility] [id number] 06:22:25 Test Item Value Reference Range Interpretation Comments CONCENTRATION CHARGED (BEAKER) (test Done code = 2657) POC-Glucose [id number] 11:33:53 Test Item Value Reference Range Interpretation Comments POC-Glucose Meter (test 90 mg/dL 70-110 : TE STED AT [facility] code = 1538) [address] [facility], 770 30: Nurse'S Aides Teacher/Techni elena ID = [id number] for SAMI (V), ALEXANDRU THY Lab Interpretation (test Normal code = 94458-2) [facility] [id number] 11:33:53 Test Item Value Reference Range Interpretation Comments POC-GLUCOSE METER 90 mg/dL 70-110 : TESTED A T [facility] 6720 (BEAKER) (test code = [facility], 1538) [address]: Nurse'S Aides Teacher/Techni elena ID = [id number] for ROSA LLO (V), SIENA POCT-GLUCOSE [id number] 08:50:53 Test Item Value Reference Range Interpretation Comments POC-GLUCOSE METER 107 mg/dL 70-110 : TESTED A T [facility] 6720 (BEAKER) (test code = [facility], 1538) [address]: Nurse'S Aides Teacher/Techni elena ID = [id number] for TA MPO, GEMMA BUN AND CREATININE [id number] 12:09:01 Test Item Value Reference Range Interpretation Comments BLOOD UREA 20 mg/dL 7-21 NITROGEN (AKER) (test code = 354) CREATININE 1.16 mg/dL 0.57-1.25 ([facility]) (test code = 358) BUN/CREAT RATIO 17 For a normal individual on (AKER) (test a normal diet , the code = reference inter boo for the 4039644797) mass ratio rang es between 12:1 and 20:1 ( BUN in mg/dL/creatinin e in mg/dL) EGFR ([facility]) 47 Interpretatio n of eGFR (test code = mL/min/1.73 values Stage De scription 1092) sq m Result G1 Chetna l or high >=90 G2 Mildly decreased 60-89 G3a Mildl y to moderately 45-5 9 G3b Moderately to s everely 30-44 G4 Severl y decreased 15-29 G5 Kidney failure <15Reported eGF R is based on the CKD-EPI 2020 equation that d oes not use a race coefficientEsti mated GFR is not as accur ate as Creatinine Helen castorena in predicting glom erular filtration rate . Estimated GFR is not appl icable for dialysis patien ts Nurse'S Aides Teacher ID - [id number] 12:00:54 Test Item Value Reference Range Interpretation Comments SODIUM (BEAKER) (test code = 381) 138 meq/L 136-145 POTASSIUM (BEAKER) (test code = 4.7 meq/L 3.5-5.1 379) CHLORIDE (BEAKER) (test code = 382) 105 meq/L 98-107 CO2 (BEAKER) (test code = 355) 25 meq/L 22-29 Nurse'S Aides Teacher ID - [id number] 12:00:54 Test Item Value Reference Range Interpretation Comments GLUCOSE RANDOM (BEAKER) (test code 104 mg/dL 70-105 = 652) Nurse'S Aides Teacher ID - [id number] 11:30:22 Test Item Value Reference Range Interpretation Comments HEMOGLOBIN (BEAKER) (test code = 10.6 GM/DL 11.2-15.7 L 410) Nurse'S Aides Teacher ID - [id number] culture + smear (non-sputum)2022-09-16 12:02:34 Test Item Value Reference Range Interpretation Comments Result (test code = No acid-fast bacilli 6463-4) isolated in 42 days AFB Smear (test code = No acid fast bacilli 19835-9) [facility]UT[facility]2022-09-16 12:02:34 Test Item Value Reference Range Interpretation Comments CULTURE (BEAKER) (test No acid-fast bacilli code = 1095) isolated in 42 days AFB SMEAR (BEAKER) No acid fast bacilli (test code = 994) seen AFB CULTURE + SMEAR (NON-SPUTUM)2022-09-16 12:02:34 Test Item Value Reference Range Interpretation Comments CULTURE (BEAKER) (test No acid-fast bacilli code = 1095) isolated in 42 days AFB SMEAR (BEAKER) No acid fast bacilli (test code = 994) seen Fungus culture + [id number] 00:09:26 Test Item Value Reference Range Interpretation Comments Result (test code = No fungus isolated in 6463-4) 28 days Fungus Smear (test No fungi seen code = 1406) [facility] [id number] 00:09:26 Test Item Value Reference Range Interpretation Comments CULTURE (BEAKER) (test No fungus isolated in code = 1095) 28 days FUNGUS SMEAR (BEAKER) No fungi seen (test code = 1406) FUNGUS CULTURE + [id number] 00:09:26 Test Item Value Reference Range Interpretation Comments CULTURE (BEAKER) (test No fungus isolated in code = 1095) 28 days FUNGUS SMEAR (BEAKER) No fungi seen (test code = 1406) ANAEROBIC [id number] 11:57:22 Test Item Value Reference Range Interpretation Comments CULTURE (BEAKER) A 4+ Same org anism has been (test code = 1095) isolated from culture(s) of the same body s ite and collection date . Repeat identification performed only after cons ultation with the [facility] microbiology laboratory.Refe r to previous cultur e ofBacteroides f ragilis ANAEROBIC [id number] 11:57:16 Test Item Value Reference Range Interpretation Comments CULTURE (BEAKER) (test A 4+ Ba cteroides fragilis code = 1095) SURGICALLY OBTAINED CULTURE + GRAM [id number] 09:27:16 Test Item Value Reference Range Interpretation Comments CULTURE (BEAKER) A 4+ Same org anism has (test code = been isolated f rom 1095) culture(s) of t he same body site and collection date . Repeat identifi cation performed only after consultation wi th the clinical microb iology laboratory.Refe r to previous cultur e ofEnterococcus faecalis GRAM STAIN <1+ White blood RESULT (BEAKER) cells seen (test code = 1123) GRAM STAIN 1+ gram negative RESULT (BEAKER) rods (test code = 787863) GRAM STAIN 1+ gram positive RESULT (BEAKER) cocci in pairs (test code = 360392) SURGICALLY OBTAINED CULTURE + GRAM [id number] 09:26:44 Test Item Value Reference Interpretation Comments Range CULTURE (BEAKER) PROTEUS MIRABILIS A 4+ Pro teus (test code = 1095) mirabilis Amikacin (test code = S 1) Ampicillin + S Sulbactam (test code = 6) Aztreonam (test code S = 32) Cefepime (test code = S 51) Cefoxitin (test code S = 68) Ceftazidime (test S code = 27) Ceftriaxone (test S code = 52) Ertapenem (test code S = 38) Gentamicin (test code S = 18) Levofloxacin (test S code = 22) Meropenem (test code S = 34) Nitrofurantoin (test R code = 23) Piperacillin + S Tazobactam (test code = 29) Tetracycline (test R code = 2) Tobramycin (test code S = 25) Trimethoprim + S Sulfamethoxazole (test code = 47) CULTURE (BEAKER) KLEBSIELLA A 3+ Klebsiel la (test code = 1095) OXYTOCA oxytoca Amikacin (test code = S 1) Ampicillin + S Sulbactam (test code = 6) Aztreonam (test code S = 32) Cefepime (test code = S 51) Cefoxitin (test code S = 68) Ceftazidime (test S code = 27) Ceftriaxone (test S code = 52) Ertapenem (test code S = 38) Gentamicin (test code S = 18) Levofloxacin (test S code = 22) Meropenem (test code S = 34) Nitrofurantoin (test S code = 23) Piperacillin + S Tazobactam (test code = 29) Tetracycline (test S code = 2) Tobramycin (test code S = 25) Trimethoprim + S Sulfamethoxazole (test code = 47) CULTURE (BEAKER) PSEUDOMONAS A 1+ Pseudomo orquidea (test code = 1095) AERUGINOSA aeruginos a Amikacin (test code = See_Comment S [Auto mated 1) message] The sy stem which generated this result transmitted reference range : Susceptible 0-1 6 , Resistant <0 or >16 . The reference range was not u sed to interpret th is result as normal/abnormal . Aztreonam (test code See_Comment S [Autom ated = 32) message] The sy stem which generated this result transmitted reference range : Susceptible 0-8 , Resistant <0 or >8 . The reference range was not u sed to interpret th is result as normal/abnormal . Cefepime (test code = See_Comment S [Auto mated 51) message] The sy stem which generated this result transmitted reference range : Susceptible 0-8 , Resistant <0 or >8 . The reference range was not u sed to interpret th is result as normal/abnormal . Ceftazidime (test See_Comment S [Automate d code = 27) message] The sy stem which generated this result transmitted reference range : Susceptible 0-8 , Resistant <0 or >8 . The reference range was not u sed to interpret th is result as normal/abnormal . Ciprofloxacin (test See_Comment S [Automa katy code = 7) message] The sy stem which generated this result transmitted reference range : Susceptible 0-0 .5 , Resistant <0 or >.5 . The reference range was not u sed to interpret th is result as normal/abnormal . Gentamicin (test code See_Comment S [Auto mated = 18) message] The sy stem which generated this result transmitted reference range : Susceptible 0-4 , Resistant <0 or >4 . The reference range was not u sed to interpret th is result as normal/abnormal . Levofloxacin (test See_Comment S [Automat ed code = 22) message] The sy stem which generated this result transmitted reference range : Susceptible 0-1 , Resistant <0 or >1 . The reference range was not u sed to interpret th is result as normal/abnormal . Meropenem (test code See_Comment S [Autom ated = 34) message] The sy stem which generated this result transmitted reference range : Susceptible 0-2 , Resistant <0 or >2 . The reference range was not u sed to interpret th is result as normal/abnormal . Piperacillin (test See_Comment S [Automat ed code = 24) message] The sy stem which generated this result transmitted reference range : Susceptible 0-1 6 , Resistant <0 or >16 . The reference range was not u sed to interpret th is result as normal/abnormal . Piperacillin + See_Comment S [Automated Tazobactam (test code messag e] The system = 29) which generated this result transmitted reference range : Susceptible 0-1 6 , Resistant <0 or >16 . The reference range was not u sed to interpret th is result as normal/abnormal . Tobramycin (test code See_Comment S [Auto mated = 25) message] The sy stem which generated this result transmitted reference range : Susceptible 0-4 , Resistant <0 or >4 . The reference range was not u sed to interpret th is result as normal/abnormal . CULTURE (BEAKER) ENTEROCOCCUS A 4+ Enteroco ccus (test code = 1095) FAECALIS faecalis Ampicillin (test code S = 26) Linezolid (test code S = 40) Vancomycin (test code S = 13) CULTURE (BEAKER) A 1+ Coryneba cterium (test code = 1095) speciesMo st closely resembles - Corynebacterium striatum GRAM STAIN RESULT <1+ White blood (BEAKER) (test code = cells seen 1123) GRAM STAIN RESULT No organisms seen (BEAKER) (test code = 119310) SPIN/CONCENTRATION [id number] 09:38:48 Test Item Value Reference Range Interpretation Comments CONCENTRATION CHARGED (BEAKER) (test Done code = 2657) SPIN/CONCENTRATION [id number] 09:38:39 Test Item Value Reference Range Interpretation Comments CONCENTRATION CHARGED (BEAKER) (test Done code = 2657) POCT-GLUCOSE [id number] 13:34:06 Test Item Value Reference Range Interpretation Comments POC-GLUCOSE METER 73 mg/dL 70-110 : TESTED A T [facility] 6720 (BEAKER) (test code = [facility], 1538) [address]: Nurse'S Aides Teacher/Techni elena ID = [id number] for Blair Castro POCT-GLUCOSE [id number] 09:59:56 Test Item Value Reference Range Interpretation Comments POC-GLUCOSE METER 96 mg/dL 70-110 : TESTED A T [facility] 6720 (BEAKER) (test code = [facility], 1538) [address]: Nurse'S Aides Teacher/Techni elena ID = [id number] for YASMEEN MARIE DOUGHERTY BLOOD [id number] 16:00:27 Test Item Value Reference Range Interpretation Comments CULTURE (BEAKER) (test No growth in 5 days code = 1095) BLOOD [id number] 14:00:29 Test Item Value Reference Range Interpretation Comments CULTURE (BEAKER) (test No growth in 5 days code = 1095) C-REACTIVE [id number] 16:00:52 Test Item Value Reference Range Interpretation Comments C-REACTIVE PROTEIN (BEAKER) (test 0.90 mg/dL 0.00-0.50 H code = 676) Nurse'S Aides Teacher ID - BSSARS-COV2/RT-PCR ([facility])2021-06-18 14:56:48 Test Item Value Reference Range Interpretation Comments SARS-COV2/RT-PCR Negative Negative The SARS-Co V-2 target (test code = nucleic acids a re not 5047319) detected in thi s specimen. Negative result s do not preclude SARS-C oV-2 infection and s hould not be used as the manisha e basis for patient managem ent decisions. Nega tive results must be combine d with clinical observ ations, patient history , and epidemiological information. A false negativ e result may occur if a spec imen is improperly evelyn ected, transported or handled. This SARS CoV-2 test is a rapid, real-time RT-PC R test intended for th e qualitative detection of nu cleic acid from SARS-CoV-2 in a nasopharyngeal swab specimen collected from individuals suspected of CO VID-19 by their [facility] provider. This test has been authorized by FDA under an EUA for use by authorized laboratories. This test is only authorized for the duration of the declaration that circumstances exist justifying the authorization of emergency use of in vitro diagnostic tests for detection and/or diagnosis of COVID-19 under Section 564(b)(1) of the Federal Food, Drug and Cosmetic Act, 21 U.S.C. 360bbb-3(b)(1), unless the authorization is terminated or revoked sooner. Fact Sheet for Healthcare Providers: https://www.frents m/Documents/Xpert%20Xpress%20SARS%20CoV-2/Fact%20Sheets/302-3802%62ZQQU-TUC-1%20 HEALTHCARE%20PROVIDERS%20FACT%20SHEET.pdf Fact Sheet for Healthcare Patients: https://www.[employer]/Documents/Xpert%20Xp ress%20SARS%20CoV-2/Fact%20Sheets/302-3801%28ZHOR-ZAM-5%20PATIENT%20FACT%20SHEET .pdfCOMPREHENSIVE METABOLIC [id number] 14:15:34 Test Item Value Reference Range Interpretation Comments TOTAL PROTEIN 8.1 gm/dL 6.0-8.3 (BEAKER) (test code = 770) ALBUMIN (BEAKER) 4.3 g/dL 3.5-5.0 (test code = 1145) ALKALINE PHOSPHATASE 134 U/L 40-150 (BEAKER) (test code = 346) BILIRUBIN TOTAL 0.4 mg/dL 0.2-1.2 (BEAKER) (test code = 377) SODIUM (BEAKER) (test 134 meq/L 136-145 L code = 381) POTASSIUM (BEAKER) 4.7 meq/L 3.5-5.1 (test code = 379) CHLORIDE (BEAKER) 103 meq/L 98-107 (test code = 382) CO2 (BEAKER) (test 24 meq/L 22-29 code = 355) BLOOD UREA NITROGEN 19 mg/dL 7-21 (BEAKER) (test code = 354) CREATININE (BEAKER) 1.21 mg/dL 0.57-1.25 (test code = 358) GLUCOSE RANDOM 118 mg/dL 70-105 H (BEAKER) (test code = 652) CALCIUM (BEAKER) 9.8 mg/dL 8.4-10.2 (test code = 697) AST (SGOT) (BEAKER) 18 U/L 5-34 (test code = 353) ALT (SGPT) (BEAKER) 27 U/L 6-55 (test code = 347) EGFR (BEAKER) (test 43 mL/min/1.73 ESTIMA KATY GFR IS code = 1092) sq m NOT ACCURATE CREATININE CLEARANCE IN PREDICTING GLOMERULAR FILTRATION RATE . ESTIMATED GFR I S NOT APPLICABLE FOR DIALYSIS PATIEN TS. Nurse'S Aides Teacher ID - [id number] 14:03:50 Test Item Value Reference Range Interpretation Comments PARTIAL THROMBOPLASTIN TIME 34.8 seconds 22.5-36.0 (BEAKER) (test code = 760) PROTHROMBIN [id number] 14:02:54 Test Item Value Reference Range Interpretation Comments PROTIME (BEAKER) 14.8 seconds 11.9-14.2 H (test code = 759) INR (BEAKER) (test 1.18 See_Comment [Automat ed message] code = 370) The system [employer] generated this result transmitted ref erence range: <=5.90. The reference range was not used to int erpret this result as normal/abnormal . RECOMMENDED COUMADIN/WARFARIN INR THERAPY RANGESSTANDARD DOSE: 2.0 - 3.0 Includes: PROPHYLAXIS for venous thrombosis, systemic embolization; TREATMENT for venous thrombosis and/or pulmonary embolus.HIGH RISK: Target INR is 2.5-3.5 for patients with mechanical heart valves.LACTIC ACID, [id number] 13:57:32 Test Item Value Reference Range Interpretation Comments LACTATE BLOOD VENOUS (2) (BEAKER) 0.55 mmol/L 0.50-2.20 (test code = 2872) Nurse'S Aides Teacher ID - EMERSONCBC W/PLT COUNT & AUTO [id number] 13:50:29 Test Item Value Reference Range Interpretation Comments WHITE BLOOD CELL COUNT (BEAKER) 5.3 K/ L 3.5-10.5 (test code = 775) RED BLOOD CELL COUNT (BEAKER) 3.38 M/ L 3.93-5.22 L (test code = 761) HEMOGLOBIN (BEAKER) (test code = 10.5 GM/DL 11.2-15.7 L 410) HEMATOCRIT (BEAKER) (test code = 30.1 % 34.1-44.9 L 411) MEAN CORPUSCULAR VOLUME (BEAKER) 89.1 fL 79.4-94.8 (test code = 753) MEAN CORPUSCULAR HEMOGLOBIN 31.1 pg 25.6-32.2 (BEAKER) (test code = 751) MEAN CORPUSCULAR HEMOGLOBIN CONC 34.9 GM/DL 32.2-35.5 (BEAKER) (test code = 752) RED CELL DISTRIBUTION WIDTH 11.9 % 11.7-14.4 (BEAKER) (test code = 412) PLATELET COUNT (BEAKER) (test 174 K/CU MM 150-450 code = 756) MEAN PLATELET VOLUME (BEAKER) 8.4 fL 9.4-12.3 L (test code = 754) NUCLEATED RED BLOOD CELLS 0 /100 WBC 0-0 (BEAKER) (test code = 413) NEUTROPHILS RELATIVE PERCENT 73 % (BEAKER) (test code = 429) LYMPHOCYTES RELATIVE PERCENT 13 % (BEAKER) (test code = 430) MONOCYTES RELATIVE PERCENT 9 % (BEAKER) (test code = 431) EOSINOPHILS RELATIVE PERCENT 5 % (BEAKER) (test code = 432) BASOPHILS RELATIVE PERCENT 0 % (BEAKER) (test code = 437) NEUTROPHILS ABSOLUTE COUNT 3.88 K/ L 1.56-6.13 (BEAKER) (test code = 670) LYMPHOCYTES ABSOLUTE COUNT 0.69 K/ L 1.18-3.74 L (BEAKER) (test code = 414) MONOCYTES ABSOLUTE COUNT (BEAKER) 0.48 K/ L 0.24-0.36 H (test code = 415) EOSINOPHILS ABSOLUTE COUNT 0.25 K/ L 0.04-0.36 (BEAKER) (test code = 416) BASOPHILS ABSOLUTE COUNT (BEAKER) 0.02 K/ L 0.01-0.08 (test code = 417) IMMATURE GRANULOCYTES-RELATIVE 0 % 0-1 PERCENT (BEAKER) (test code = 2801) RAD, FOOT, MIN 3 VIEWS, [id number] 13:18:00Reason for exam:->R foot wound over first and second metatarsals [facility] 1940 Sex: FFINAL REPORT RAD, FOOT, MIN 3 VIEWS, RIGHT CLINICAL INDICATION: R foot wound over first and second metatarsals COMPARISON: April 23, 2021 FINDINGS: Frontal, oblique and lateral views of the right foot. 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 Erosive changes are noted along the medial aspect near the ulceration medially and along the plantar surface. Remaining osseous structures demonstrate osteopenia and mild degenerative changes in thejoint spaces. Signed: JR Morrissey Robert MDReport Verified Date/Time: 06/18/2021 13:18:59 Reading Location: [facility] Radiology Reading Room RAD, FOOT, MIN 3 VIEWS, [id number] 14:15:00Reason for Exam:->Skin ulcer of toe of right foot with fat layer exposed (HCC) [facility] 1940 Sex: FFINAL REPORT Exam: Right foot three views History: Foot pain Comparison: 2013 Findings: No acute fracture. 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 Soft tissue irregularity along the medial aspect of the forefoot.Vascular calcifications. Calcaneal enthesophyte at the plantar surface. The distal phalanges of the s econd through fourth toes not well visualized. 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 Signed: Luther August MDReport Verified Date/Time: 04/23/2021 14:15:36 Reading Location: [facility] [facility] Reading Room [address] [place] [address] RAD, SKULL, LESS THAN 4 [id number] 18:09:00 Reason for exam:->[facility] : 1940 Sex: FFINAL REPORT RAD, SKULL, LESS THAN 4 VIEWS HISTORY: RIGHT COCHLEAR IMPLANT. COMPARISON: None IMPRESSION:Bilateral cochlear implants. Patient is edentulous. Skin kike overlying the soft tissues on the right. Right-sided soft tissue gas and soft tissue swelling. No acute osseousabnormality. Signed: Chyna Blas Verified Date/Time: 10/23/2020 18:09:19 Electronically sunshine d by: CHNYA BLAS MD on 10/23/2020 06:09 PMPOCT-GLUCOSE [id number] 14:05:00 Test Item Value Reference Range Interpretation Comments POC-GLUCOSE METER 133 mg/dL 70-110 H : TESTED A T [facility] 67[address] ([facility]) (test code = [facility], 1538) [id number]: Nurse'S Aides Teacher/Techni elena ID = [id number] for Tawny Finley POCT-GLUCOSE [id number] 09:50:00 Test Item Value Reference Range Interpretation Comments POC-GLUCOSE METER 146 mg/dL 70-110 H : Notified RN/MD: ([facility]) (test code = TESTED AT [facility] [address] 1538) [facility], [address]: Nurse'S Aides Teacher/Techni elena ID = [id number] for Adrianne Patterson BASIC METABOLIC [id number] 13:09:00 Test Item Value Reference Range Interpretation Comments SODIUM (BEAKER) 136 meq/L 136-145 (test code = 381) POTASSIUM (BEAKER) 4.9 meq/L 3.5-5.1 (test code = 379) CHLORIDE (BEAKER) 105 meq/L 98-107 (test code = 382) CO2 (BEAKER) (test 24 meq/L 22-29 code = 355) BLOOD UREA NITROGEN 35 mg/dL 7-21 H (BEAKER) (test code = 354) CREATININE (BEAKER) 1.46 mg/dL 0.57-1.25 H (test code = 358) GLUCOSE RANDOM 112 mg/dL 70-105 H (BEAKER) (test code = 652) CALCIUM (BEAKER) 9.7 mg/dL 8.4-10.2 (test code = 697) EGFR (BEAKER) (test 35 mL/min/1.73 ESTIMA KATY GFR IS code = 1092) sq m NOT ACCURATE CREATININE CLEARANCE IN PREDICTING GLOMERULAR FILTRATION RATE . ESTIMATED GFR I S NOT APPLICABLE FOR DIALYSIS PATIEN TS. Nurse'S Aides Teacher ID - SVETA [id number] 12:49:00 Test Item Value Reference Range Interpretation Comments HEMOGLOBIN (ANGELINA) (test code = 10.4 GM/DL 11.2-15.7 L 410) Nurse'S Aides Teacher ID - [id number]-GLUCOSE [id number] 13:02:00 Test Item Value Reference Range Interpretation Comments POC-GLUCOSE METER 121 mg/dL 70-110 H : TESTED A T [facility] [address] (ANGELINA) (test code = [place], 1538) [id number]: Nurse'S Aides Teacher/Techni elena ID = [id number] for BR OWN, GIL CT, CTANGIO [id number] 11:34:00FINAL REPORT CT, CAROTID, ANGIO, CT, CTANGIO BRAINBRAIN CT WITHOUT CONTRAST INDICATION: Neuro deficit, acute, stroke suspected COMPARISON: Most recent available imaging at the timeof dictation is noncontrast CT brain dated July 07, 2015 TECHNIQUE:Rapid acquisition spiral images were obtained between the aortic arch and the cranial vertex during intravenous contrast infusion to reconstruct axial images and angiographic 3D maximum intensity projections (MIP). 3-D volumetric reformatted images were created at a dedicated workstation. Precontrast images of the brain were also obtained. Stenosis evaluation reported in compliance with NASCET criteria. DOSE REDUCTION: Dose modulation, iterative reconstruction, and/or weight-based adjustment of the mA/kV was utilized to reduce the radiation dose to as low as reasonably achievable. FINDINGS:CT BRAIN:Evaluation is limited by metallic streak artifact arising from left cochlear implantation. No discernible osseous abnormality is present. The visible portions of brain parenchyma demonstrate no identifiable acute infarct. There is moderate volume loss. No intracranial hemorrhage is detected. CTA BRAIN:Atherosclerotic disease in the internal carotid arteries intracranially result and no flow limitation. Middle and anterior cerebral artery distal branches are normally opacified. The left vertebral artery ends at the posterior inferior cerebellar artery. The basilar system is supplied by the dominant right vertebral artery. Posterior cerebral arteries are normally opacified. CTA NECK:Arch anatomy is conventional. Atherosclerosis immediately focal narrowing is present at the origin of the left subclavian artery. Robust distal opacification is present. Vertebral arteries originate normally and demonstrate no origin stenosis. The right vertebral artery is dominant.. Atherosclerotic disease is present at the bifurcations. There isno flow limitation or narrowing by NASCET criteria. Nonvascular findings:No acute findings within the limits of arterial phase imaging. IMPRESSION: No major branch occlusion or flow limitation within the intracranial or cervical circulations. Evaluation of the brain parenchyma is limited by metallic artifact arising from cochlear implant. Visible portions of the brain demonstrate no discernible recent infarct. Unremarkable CTA of the head and neck. Signed: JR Morrissey Robert MDReport Verified Date/Time: 09/10/2019 11:34:51 Reading Location: [address] Neuro Reading Room CT, CAROTID, [id number] 11:34:00FINAL REPORT CT, CAROTID, ANGIO, CT, CTANGIO BRAINBRAIN CT WITHOUT CONTRAST INDICATION: Neuro deficit, acute, stroke suspected COMPARISON: Most recent available imaging at the timeof dictation is noncontrast CT brain dated July 07, 2015 TECHNIQUE:Rapid acquisition spiral images were obtained between the aortic arch and the cranial vertex during intravenous contrast infusion to reconstruct axial images and angiographic 3D maximum intensity projections (MIP). 3-D volumetric reformatted images were created at a dedicated workstation. Precontrast images of the brain were also o btained. Stenosis evaluation reported in compliance with NASCET criteria. DOSE REDUCTION: Dose modulation, iterative reconstruction, and/or weight-based adjustment of the mA/kV was utilized to reduce the radiation dose to as low as reasonably achievable. FINDINGS:CT BRAIN:Evaluation is limited by metallic streak artifact arising from left cochlear implantation. No discernible osseous abnormality is present. The visible portions of brain parenchyma demonstrate no identifiable acute infarct. There is moderate volume loss. No intracranial hemorrhage is detected. CTA BRAIN:Atherosclerotic disease in the internal carotid arteries intracranially result and no flow limitation. Middle and anterior cerebral artery distal branches are normally opacified. The left vertebral artery ends at the posterior inferior cerebellar artery. The basilar system is supplied by the dominant right vertebral artery. Posterior cerebral arteries are normally opacified. CTA NECK:Arch anatomy is conventional. Atherosclerosis immediately focal narrowing is present at the origin of the left subclavian artery. Robust distal opacification is present. Vertebral arteries originate normally and demonstrate no origin stenosis. The right vertebral artery is dominant.. Atherosclerotic disease is present at the bifurcations. There isno flow limitation or narrowing by NASCET criteria. Nonvascular findings:No acute findings within the limits of arterial phase imaging. IMPRESSION: No major branch occlusion or flow limitation within the intracranial or cervical circulations. Evaluation of the brain parenchyma is limited by metallic artifact arising from cochlear implant. Visible portions of the brain demonstrate no discernible recent infarct. Unremarkable CTA of the head and neck. Signed: JR Morrissey Robert MDReport Verified Date/Time: 09/10/2019 11:34:51 Reading Location: [address] Neuro Reading Room [id number] 10:42:00 Test Item Value Reference Range Interpretation Comments RPR SCREEN (BEAKER) (test code = Nonreactive Nonreactive 420) POCT-GLUCOSE [id number] 08:31:00 Test Item Value Reference Range Interpretation Comments POC-GLUCOSE METER 91 mg/dL 70-110 : TESTED A T [facility] [address] (BEAKER) (test code = [place], 1538) [address]: Nurse'S Aides Teacher/Techni elena ID = [id number] for GIL RHODES HEMOGLOBIN [id number] 08:24:00 Test Item Value Reference Range Interpretation Comments HEMOGLOBIN A1C (BEAKER) (test code = 6.7 % 4.3-6.1 H 368) TSH/FREE T4 IF [id number] 07:46:00 Test Item Value Reference Range Interpretation Comments THYROID STIMULATING HORMONE 1.34 uIU/mL 0.35-4.94 (BEAKER) (test code = 772) Nurse'S Aides Teacher ID - LAVITAMIN B12 AND [id number] 07:46:00 Test Item Value Reference Range Interpretation Comments VITAMIN B12 (BEAKER) (test code = 935 pg/mL 213-816 H 774) FOLATE (BEAKER) (test code = 362) 9.3 ng/mL >=7.0 Nurse'S Aides Teacher ID - [id number] 07:26:00 Test Item Value Reference Range Interpretation Comments MAGNESIUM (BEAKER) (test code = 2.0 mg/dL 1.6-2.6 627) Nurse'S Aides Teacher ID - LACOMPREHENSIVE METABOLIC [id number] 07:26:00 Test Item Value Reference Range Interpretation Comments TOTAL PROTEIN 6.4 gm/dL 6.0-8.3 (BEAKER) (test code = 770) ALBUMIN (BEAKER) 3.5 g/dL 3.5-5.0 (test code = 1145) ALKALINE PHOSPHATASE 125 U/L 40-150 (BEAKER) (test code = 346) BILIRUBIN TOTAL 0.3 mg/dL 0.2-1.2 (BEAKER) (test code = 377) SODIUM (BEAKER) (test 138 meq/L 136-145 code = 381) POTASSIUM (BEAKER) 5.0 meq/L 3.5-5.1 (test code = 379) CHLORIDE (BEAKER) 111 meq/L 98-107 H (test code = 382) CO2 (BEAKER) (test 23 meq/L 22-29 code = 355) BLOOD UREA NITROGEN 24 mg/dL 7-21 H (BEAKER) (test code = 354) CREATININE (BEAKER) 1.14 mg/dL 0.57-1.25 (test code = 358) GLUCOSE RANDOM 90 mg/dL 70-105 (BEAKER) (test code = 652) CALCIUM (BEAKER) 8.5 mg/dL 8.4-10.2 (test code = 697) AST (SGOT) (BEAKER) 16 U/L 5-34 (test code = 353) ALT (SGPT) (BEAKER) 27 U/L 6-55 (test code = 347) EGFR (BEAKER) (test 46 mL/min/1.73 ESTIMA KATY GFR IS code = 1092) sq m NOT ACCURATE CREATININE CLEARANCE IN PREDICTING GLOMERULAR FILTRATION RATE . ESTIMATED GFR I S NOT APPLICABLE FOR DIALYSIS PATIEN TS. Nurse'S Aides Teacher ID - LALIPID [id number] 07:26:00 Test Item Value Reference Range Interpretation Comments TRIGLYCERIDES (BEAKER) (test code = 52 mg/dL 540) CHOLESTEROL (BEAKER) (test code = 104 mg/dL 631) HDL CHOLESTEROL (BEAKER) (test code 49 mg/dL = 976) LDL CHOLESTEROL CALCULATED (BEAKER) 45 mg/dL (test code = 633) Triglyceride Reference Range: Low Risk <150 Borderline 150-199 High Risk 200- 499 Very High Risk >=500Cholesterol Reference Range: Low Risk <200 Borderline 200-239 High Risk >240HDL Cholesterol Reference Range: Low Risk >=60 High Risk <40LDL Cholesterol Reference Range: Optimal <100 Near Optimal 100-129 Borderline 130-159 High 160-189 Very High >=190 Nurse'S Aides Teacher ID - LAC-REACTIVE [id number] 07:26:00 Test Item Value Reference Range Interpretation Comments C-REACTIVE PROTEIN (BEAKER) (test 0.04 mg/dL 0.00-0.50 code = 676) Nurse'S Aides Teacher ID - LACBC W/PLT COUNT & AUTO [id number] 05:39:00 Test Item Value Reference Range Interpretation Comments WHITE BLOOD CELL COUNT (BEAKER) 4.3 K/ L 3.5-10.5 (test code = 775) RED BLOOD CELL COUNT (BEAKER) 2.98 M/ L 3.93-5.22 L (test code = 761) HEMOGLOBIN (BEAKER) (test code = 9.2 GM/DL 11.2-15.7 L 410) HEMATOCRIT (BEAKER) (test code = 27.0 % 34.1-44.9 L 411) MEAN CORPUSCULAR VOLUME (BEAKER) 90.6 fL 79.4-94.8 (test code = 753) MEAN CORPUSCULAR HEMOGLOBIN 30.9 pg 25.6-32.2 (BEAKER) (test code = 751) MEAN CORPUSCULAR HEMOGLOBIN CONC 34.1 GM/DL 32.2-35.5 (BEAKER) (test code = 752) RED CELL DISTRIBUTION WIDTH 12.0 % 11.7-14.4 (BEAKER) (test code = 412) PLATELET COUNT (BEAKER) (test 132 K/CU MM 150-450 L code = 756) MEAN PLATELET VOLUME (BEAKER) 9.5 fL 9.4-12.3 (test code = 754) NUCLEATED RED BLOOD CELLS 0 /100 WBC 0-0 (BEAKER) (test code = 413) NEUTROPHILS RELATIVE PERCENT 60 % (BEAKER) (test code = 429) LYMPHOCYTES RELATIVE PERCENT 26 % (BEAKER) (test code = 430) MONOCYTES RELATIVE PERCENT 10 % (BEAKER) (test code = 431) EOSINOPHILS RELATIVE PERCENT 3 % (BEAKER) (test code = 432) BASOPHILS RELATIVE PERCENT 0 % (BEAKER) (test code = 437) NEUTROPHILS ABSOLUTE COUNT 2.59 K/ L 1.56-6.13 (BEAKER) (test code = 670) LYMPHOCYTES ABSOLUTE COUNT 1.13 K/ L 1.18-3.74 L (BEAKER) (test code = 414) MONOCYTES ABSOLUTE COUNT (BEAKER) 0.43 K/ L 0.24-0.36 H (test code = 415) EOSINOPHILS ABSOLUTE COUNT 0.13 K/ L 0.04-0.36 (BEAKER) (test code = 416) BASOPHILS ABSOLUTE COUNT (BEAKER) 0.01 K/ L 0.01-0.08 (test code = 417) IMMATURE GRANULOCYTES-RELATIVE 0 % 0-1 PERCENT (BEAKER) (test code = 2801) POCT-GLUCOSE [id number] 01:50:00 Test Item Value Reference Range Interpretation Comments POC-GLUCOSE METER 137 mg/dL 70-110 H : Notified RN/MD: ([facility]) (test code = TESTED AT [facility] [address] 1538) [facility], [address]: Nurse'S Aides Teacher/Techni elena ID = [id number] for LUDMILA HORNER POCT-GLUCOSE [id number] 06:53:00 Test Item Value Reference Range Interpretation Comments POC-GLUCOSE METER 114 mg/dL 70-110 H : TESTED A T [facility] [address] ([facility]) (test code [facility], = 1538) [address]: Nurse'S Aides Teacher/Techni elena ID = [id number] for JANIS SANTA BASIC METABOLIC [id number] 12:24:00 Test Item Value Reference Range Interpretation Comments SODIUM (BEAKER) 138 meq/L 136-145 (test code = 381) POTASSIUM (BEAKER) 4.5 meq/L 3.5-5.1 (test code = 379) CHLORIDE (BEAKER) 105 meq/L 98-107 (test code = 382) CO2 (BEAKER) (test 26 meq/L 22-29 code = 355) BLOOD UREA NITROGEN 23 mg/dL 7-21 H (BEAKER) (test code = 354) CREATININE (BEAKER) 1.29 mg/dL 0.57-1.25 H (test code = 358) GLUCOSE RANDOM 125 mg/dL 70-105 H (BEAKER) (test code = 652) CALCIUM (BEAKER) 9.2 mg/dL 8.4-10.2 (test code = 697) EGFR (BEAKER) (test 40 mL/min/1.73 ESTIMA KATY GFR IS code = 1092) sq m NOT ACCURATE CREATININE CLEARANCE IN PREDICTING GLOMERULAR FILTRATION RATE . ESTIMATED GFR I S NOT APPLICABLE FOR DIALYSIS PATIEN [facility]. [id number] 12:07:00 Test Item Value Reference Range Interpretation Comments HEMOGLOBIN (BEAKER) (test code = 10.7 GM/DL 11.2-15.7 L 410) AFB CULTURE + [id number] 07:45:00 Test Item Value Reference Range Interpretation Comments CULTURE (BEAKER) (test No acid-fast bacilli code = 1095) isolated in 42 days AFB SMEAR (BEAKER) No acid fast bacilli (test code = 994) seen TISSUE [id number] 13:14:00Surgical Pathology Report Case: [id number] Authorizing Provider: Jose Hearn DPM Collected: 06/22/2017 1040 Ordering Location: [facility] Received: 06/22/2017 1421 SERVICES Patholog ist: Bryce Maldonado MD Specimen: Foot, Left, 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 Signing Pathologist Direct Phone Line: [phone] signed by Bryce Maldonado MD on 06/29/2017 at 1:14 [id number], [id number] skin woundLeft foot chronic ulcer of left foot and boneThe specimen is received in a formalin-filled container labeled with the patient's information and labeled "chronic ulcer left foot and bone" and consists of an unoriented excision of watson-joe epithelium measuring 1.3 x 0._ x 0.4 cm in depth. The skin has an open defect centrally measuring 0.2 cm. There is also a segment of bone in the container measuring 1.5 x 1.3 x 0.2 cm. The specimen is sectioned and submitted entirely as follows: A1, skin; A2, bone submitted for decalcification. CG/ew SURGICALLY OBTAINED CULTURE + GRAM [id number] 11:45:00 Test Item Value Reference Range Interpretation Comments CULTURE (BEAKER) (test code = 1095) Amikacin (test code = S 1) Ampicillin + Sulbactam S (test code = 6) Aztreonam (test code = S 32) Cefepime (test code = S 51) Cefoxitin (test code = S 68) Ceftazidime (test code S = 27) Ceftriaxone (test code S = 52) Ertapenem (test code = S 38) Gentamicin (test code = S 18) Levofloxacin (test code S = 22) Meropenem (test code = S 34) Nitrofurantoin (test S code = 23) Piperacillin + S Tazobactam (test code = 29) Tetracycline (test code S = 2) Tobramycin (test code = S 25) Trimethoprim + S Sulfamethoxazole (test code = 47) CULTURE (BEAKER) (test A <1+ K lebsiella code = 1095) oxytoca CULTURE (BEAKER) (test A 3+ Di phtheroid code = 1095) GRAM STAIN RESULT <1+ WBCs (BEAKER) (test code = 1123) GRAM STAIN RESULT <1+ gram (BEAKER) (test code = positive rods [id number]) SPIN/CONCENTRATION [id number] 11:52:00 Test Item Value Reference Range Interpretation Comments CONCENTRATION CHARGED (BEAKER) (test Done code = 2657) POCT-GLUCOSE [id number] 08:56:00 Test Item Value Reference Range Interpretation Comments POC-GLUCOSE METER 143 mg/dL 70-110 H TESTED AT [facility] [address] (BEAKER) (test code = [place] 1538) [address] BASIC METABOLIC [id number] 15:39:00 Test Item Value Reference Range Interpretation Comments SODIUM (BEAKER) 138 meq/L 136-145 (test code = 381) POTASSIUM (BEAKER) 4.5 meq/L 3.5-5.1 (test code = 379) CHLORIDE (BEAKER) 105 meq/L 98-107 (test code = 382) CO2 (BEAKER) (test 24 meq/L 22-29 code = 355) BLOOD UREA NITROGEN 25 mg/dL 7-21 H (BEAKER) (test code = 354) CREATININE (BEAKER) 1.05 mg/dL 0.57-1.25 (test code = 358) GLUCOSE RANDOM 113 mg/dL 70-105 H (BEAKER) (test code = 652) CALCIUM (BEAKER) 9.7 mg/dL 8.4-10.2 (test code = 697) EGFR (ANGELINA) (test 51 mL/min/1.73 ESTIMA KATY GFR IS code = 1092) sq m NOT ACCURATE CREATININE CLEARANCE IN PREDICTING GLOMERULAR FILTRATION RATE . ESTIMATED GFR I S NOT APPLICABLE FOR DIALYSIS PATIDAVEY TS. [id number] 15:14:00 Test Item Value Reference Range Interpretation Comments HEMOGLOBIN (ANGELINA) (test code = 11.7 GM/DL 11.2-15.7 410)
[2022-12-12 16:28] LABS: Absolute Lymphocytes (CBC) 0.9 K/uL (0.7-4.9); Hematocrit 28.6 % (36.0-45.0); Lymphocytes % 17.7 % (15.3-44.8); MCV 86.6 fL (80-100); MPV 7.3 fL (7.6-11.3)
--- NOTE | 2022-12-12 16:32 | RAD REPORT ---
EXAM DESCRIPTION: RAD - Chest Single View - 12/12/2022 4:24 pm CLINICAL HISTORY: CHEST PAIN Chest pain. COMPARISON: <Comparisons> FINDINGS: Portable technique limits examination quality. The lungs are emphysematous but grossly clear. The heart is normal in size. No displaced fractures. IMPRESSION: Moderate COPD.
[2022-12-12 16:33] LABS: Troponin High Sensitivity 6.7 pg/mL (<58.9)
--- NOTE | 2022-12-12 17:03 | EDPHYS ---
Physician Documentation [facility] Name: Maura Briggs Age: 82 yrs Sex: Female : 1940 Arrival Date: 12/12/2022 Time: 15:11 Bed 25 Private MD: ED Physician Sarkis Power HPI: 12/12 17:08 This 82 yrs old Female presents to ER via EMS with complaints of Chest rt Tightness. 17:08 Patient presents to the ED with a chest pain starting this morning. The patient rt received nitro and aspirin by EMS prior to arrival, this has resolved the symptoms, she has no symptoms currently. She does report a mild shortness of breath earlier, none currently. Symptoms are moderate severity, nonradiating, no other aggravating or alleviating factors.. Historical: - Allergies: 15:53 PENICILLINS; ll1 15:53 Sulfa (Sulfonamide Antibiotics); ll1 - PMHx: 15:53 Hypertensive disorder; Hypercholesterolemia; ll1 - Immunization history:: Client reports receiving the 2nd dose of the Covid vaccine. - Social history:: Smoking status: Patient denies any tobacco usage or history of. - Family history:: not pertinent. ROS: 17:08 Constitutional: Negative for fever, chills, and weight loss, MS/Extremity: Negative for rt injury and deformity, Skin: Negative for injury, rash, and discoloration, Neuro: Negative for headache, weakness, numbness, tingling, and seizure, Psych: Negative for depression, anxiety, suicide ideation, homicidal ideation, and hallucinations. 17:08 Cardiovascular: Positive for chest pain, Negative for edema. 17:08 Respiratory: Positive for shortness of breath, Negative for cough. 17:08 Abdomen/GI: Positive for nausea, Negative for abdominal pain. Exam: 17:08 Constitutional: This is a well developed, well nourished patient who is awake, alert, rt and in no acute distress. Head/Face: Normocephalic, atraumatic. Chest/axilla: Normal chest wall appearance and motion. Nontender with no deformity. No lesions are appreciated. Cardiovascular: Regular rate and rhythm with a normal S1 and S2. No gallops, murmurs, or rubs. Normal PMI, no JVD. No pulse deficits. Respiratory: Lungs have equal breath sounds bilaterally, clear to auscultation and percussion. No rales, rhonchi or wheezes noted. No increased work of breathing, no retractions or nasal flaring. Abdomen/GI: Soft, non-tender, with normal bowel sounds. No distension or tympany. No guarding or rebound. No evidence of tenderness throughout. Skin: Warm, dry with normal turgor. Normal color with no rashes, no lesions, and no evidence of cellulitis. MS/ Extremity: Pulses equal, no cyanosis. Neurovascular intact. Full, normal range of motion. Neuro: Awake and alert, GCS 15, oriented to person, place, time, and situation. Cranial nerves II-XII grossly intact. Motor strength 5/5 in all extremities. Sensory grossly intact. Cerebellar exam normal. Normal gait. Psych: Awake, alert, with orientation to person, place and time. Behavior, mood, and affect are within normal limits. 17:08 ECG was reviewed by the Attending Physician. Vital Signs: 15:51 BP 147 / 59; Pulse 81; Resp 17; Temp 97.8; Pulse Ox 100% ; Weight 49.9 kg; Height 4 ft. ll1 11 in. ; Pain 0/10; 16:15 BP 147 / 74; Pulse 74; Resp 17; Pulse Ox 99% ; ll1 17:15 BP 147 / 67; Pulse 77; Resp 17; Pulse Ox 100% ; ll1 18:37 BP 155 / 62; Pulse 78; Resp 16; Pulse Ox 100% ; ll1 15:51 Body Mass Index 22.22 (49.90 kg, 149.86 cm) ll1 15:51 Pain Scale: Adult ll1 MDM: 15:56 Patient medically screened. rt 17:08 Differential diagnosis: abnormal EKG, acute myocardial infarction, coronary artery rt disease congestive heart failure pneumonia, pneumothorax, pulmonary embolus. HEART Score: History: Highly Suspicious (2), ECG: Non specific repolarization disturbance / LBTB / PM (1), Age: > or = 65 years (2), Risk Factors: 1 or 2 risk factors (1), Troponin: < or = 1 x Normal Limit (0), Total Score = 6. The patient was not given aspirin in the Emergency Department. Patient reports taking aspirin within the past 24 hours. Data reviewed: vital signs, nurses notes, lab test result(s), EKG, radiologic studies. Consideration of Admission/Observation Patient was admitted/placed on observation. Management of patient was discussed with the following: Hospitalist: Agrees to admit. Independent interpretation of the following test(s) in the Emergency Department X-Ray: My interpretation is No consolidation seen on my interpretation of the chest x-ray images. Test considered but Not performed: CT: Low suspicion for PE, CT angiogram not indicated. Counseling: I had a detailed discussion with the patient and/or guardian regarding: the historical points, exam findings, and any diagnostic results supporting the discharge/admit diagnosis, lab results, radiology results, the need for further work-up and treatment in the hospital. Response to treatment: the patient's symptoms have resolved after treatment. 12/12 16:01 Order name: Basic Metabolic Panel; Complete Time: 16:34 rt 12/12 16:01 Order name: CBC with Diff; Complete Time: 16:34 rt 12/12 16:01 Order name: NT PRO-BNP; Complete Time: 16:34 rt 12/12 16:01 Order name: Troponin HS; Complete Time: 16:34 rt 12/12 17:51 Order name: Magnesium; Complete Time: 18:47 EDMS 12/12 17:51 Order name: Phosphorus; Complete Time: 18:47 EDMS 12/12 17:51 Order name: T4 Free; Complete Time: 18:47 EDMS 12/12 17:51 Order name: Thyroid Stimulating Hormone; Complete Time: 18:47 EDMS 12/12 17:51 Order name: Basic Metabolic Panel EDMS 12/12 17:51 Order name: Basic Metabolic Panel EDMS 12/12 17:51 Order name: CBC with Automated Diff EDMS 12/12 17:51 Order name: CBC with Automated Diff EDMS 12/12 17:51 Order name: Lipid Profile EDMS 12/12 17:51 Order name: Lipid Profile EDMS 12/12 17:52 Order name: Urinalysis w/ reflexes EDMS 12/12 20:20 Order name: Troponin High Sensitivity EDMS 12/12 22:16 Order name: Glucose, Ancillary Testing EDMS 12/13 07:33 Order name: Glucose, Ancillary Testing EDMS 12/13 08:54 Order name: Troponin High Sensitivity EDMS 12/13 11:43 Order name: Glucose, Ancillary Testing EDMS 12/13 13:50 Order name: D-Dimer EDMS 12/12 16:01 Order name: XRAY Chest (1 view); Complete Time: 16:34 rt 12/12 17:48 Order name: Abdomen Wo Contrast; Complete Time: 18:47 EDMS 12/12 16:01 Order name: EKG; Complete Time: 16:02 rt 12/12 17:51 Order name: CONS Physician Consult EDMS 12/12 17:51 Order name: 60g Consistent Carbohydrate (ADA 1800/2000); Complete Time: 15:02 EDMS 12/12 17:52 Order name: CONS [facility] Cons EDMS 12/12 16:01 Order name: Cardiac monitoring; Complete Time: 16:15 rt 12/12 16:01 Order name: EKG - Nurse/Tech; Complete Time: 16:15 rt 12/12 16:01 Order name: IV Saline Lock; Complete Time: 16:04 rt 12/12 16:01 Order name: Labs collected and sent; Complete Time: 16:07 rt 12/12 16:01 Order name: O2 Per Protocol; Complete Time: 16:04 rt 12/12 16:01 Order name: O2 Sat Monitoring; Complete Time: 16:04 rt EC:08 Rate is 76 beats/min. Rhythm is regular, Normal Sinus Rhythm with Right bundle branch rt block. Left axis deviation noted. VA interval is normal. QRS interval is normal. QT interval is normal. No Q waves. Administered Medications: No medications were administered Disposition Summary: 12/12/22 17:02 Hospitalization Ordered Hospitalization Status: Observation rt Provider: Moise Dennis rt Condition: Stable rt Problem: new rt Symptoms: are resolved rt Bed/Room Type: Standard rt Location: Telemetry/MedSurg (observation)(12/13/22 14:39) Room Assignment: 221(12/13/22 14:39) bd Diagnosis - Chest pain, unspecified rt Forms: - Medication Reconciliation Form rt - SBAR form rt Signatures: Dispatcher [employer] Emma Sheets Cindy, RN RN Ward Myles RN RN [email or web address] Sarkis Power MD MD rt Corrections: (The following items were deleted from the chart) 15:54 15:53 PMHx: hyperc; ll1 ll1 20:31 17:02 Telemetry/MedSurg (observation) rt cg 20:31 17:02 rt cg 12/13 14:39 12/12 20:31 BR ER HOLD cg bd 12/13 14:39 12/12 20:31 ERHOLD- cg bd
--- NOTE | 2022-12-12 17:03 | ER ---
Nurse's Notes [facility] Name: Maura Briggs Age: 82 yrs Sex: Female : 1940 Arrival Date: 12/12/2022 Time: 15:11 Bed 25 Private MD: Diagnosis: Chest pain, unspecified Presentation: 12/12 15:51 Chief complaint: Patient states: CP and BARNES started today. Chief complaint: EMS states: ll1 1 nitro spray aspirin 324 MG PO, NS with R BBB. 20 G R AC. Coronavirus screen: Vaccine status: Patient reports receiving the 2nd dose of the covid vaccine. Client denies travel out of the [place] in the last 14 days. At this time, the client does not indicate any symptoms associated with coronavirus-19. Ebola Screen: Patient denies travel to an Ebola-affected area in the 21 days before illness onset. Initial Sepsis Screen: Does the patient meet any 2 criteria? No. Patient's initial sepsis screen is negative. Does the patient have a suspected source of infection? No. Patient's initial sepsis screen is negative. Risk Assessment: Do you want to hurt yourself or someone else? Patient reports no desire to harm self or others. Onset of symptoms was December 12, 2022. 15:51 Method Of Arrival: EMS ll1 15:51 Acuity: [place]IA [place] 3 ll1 Triage Assessment: 15:54 General: Appears in no apparent distress. Behavior is calm, cooperative, appropriate ll1 for age. Pain: Denies pain. Cardiovascular: Reports chest pain. Historical: - Allergies: 15:53 PENICILLINS; ll1 15:53 Sulfa (Sulfonamide Antibiotics); ll1 - PMHx: 15:53 Hypertensive disorder; Hypercholesterolemia; ll1 - Immunization history:: Client reports receiving the 2nd dose of the Covid vaccine. - Social history:: Smoking status: Patient denies any tobacco usage or history of. - Family history:: not pertinent. Screenin:16 [facility] ED Fall Risk Assessment (Adult) Confusion or Disorientation Yes (5 pts) ll1 Impaired Gait Yes (1 pt) Mobility Assist Device Used Yes (1 pt) Score/Fall Risk Level 3 or more points = High Risk Oriented to surroundings, Maintained a safe environment, Educated pt \T\ family on fall prevention, incl call for assistance when getting out of bed, Used ambulatory aids as needed (educated on \T\ assisted with), Utilized family, sitter, or virtual medical manager as indicated. Abuse screen: Denies threats or abuse. Nutritional screening: No deficits noted. Tuberculosis screening: No symptoms or risk factors identified. Assessment: 16:15 Reassessment: No changes from previously documented assessment. Patient and/or family ll1 updated on plan of care and expected duration. Pain level reassessed. 17:15 Reassessment: No changes from previously documented assessment. Patient and/or family ll1 updated on plan of care and expected duration. Pain level reassessed. Patient is alert, oriented x 3, equal unlabored respirations, skin warm/dry/pink. 18:15 Reassessment: No changes from previously documented assessment. Patient and/or family ll1 updated on plan of care and expected duration. Pain level reassessed. Patient is alert, oriented x 3, equal unlabored respirations, skin warm/dry/pink. Vital Signs: 15:51 BP 147 / 59; Pulse 81; Resp 17; Temp 97.8; Pulse Ox 100% ; Weight 49.9 kg; Height 4 ft. ll1 11 in. ; Pain 0/10; 16:15 BP 147 / 74; Pulse 74; Resp 17; Pulse Ox 99% ; ll1 17:15 BP 147 / 67; Pulse 77; Resp 17; Pulse Ox 100% ; ll1 18:37 BP 155 / 62; Pulse 78; Resp 16; Pulse Ox 100% ; ll1 15:51 Body Mass Index 22.22 (49.90 kg, 149.86 cm) ll1 15:51 Pain Scale: Adult ll1 ED Course: 15:51 Patient arrived in ED. ap3 15:51 Ward Quiroga, IGNACIO is Primary Nurse. ll1 15:52 Sarkis Power MD is Attending Physician. rt 15:53 Triage completed. ll1 15:54 Maintain EMS IV. Dressing intact. Good blood return noted. Site clean \T\ dry. Gauge \T\ ll 1 site: 20 G R AC. 16:07 Initial lab(s) drawn, by me, sent to lab. ap3 16:07 Arm band placed on right wrist. ap3 16:07 Patient has correct armband on for positive identification. Bed in low position. Call ap3 light in reach. Side rails up X2. security monitor on. Pulse ox on. NIBP on. 16:24 XRAY Chest (1 view) Sent. ll1 16:26 XRAY Chest (1 view) In Process Unspecified. EDMS 17:02 Moise Dennis MD is Hospitalizing Provider. rt Administered Medications: No medications were administered Medication: 16:16 VIS not applicable for this client. ll1 Outcome: 17:02 Decision to Hospitalize by Provider. rt 12/13 16:08 Patient left the ED. tw5 Signatures: Dispatcher [employer] EDPA Mary Pagan RN RN ap3 Ward Quiroga RN RN ll1 Brisa Mijares tw5 Sarkis Power MD MD rt Corrections: (The following items were deleted from the chart) 12/12 15:54 15:53 PMHx: hyperc; ll1 ll1 18:37 17:15 BP 155 / 62; Pulse 78bpm; Resp 16bpm; Pulse Ox 100%; ll1 ll1
[2022-12-12] MEDS ORDERED: ASPIRIN 81 MG CHEWABLE TABLET PO ONE (17:48)
[2022-12-12] MEDS ORDERED: ACETAMINOPHEN 325 MG TABLET PO PRN (17:48)
[2022-12-12] MEDS ORDERED: ONDANSETRON 4 MG/2 ML VIAL IV PRN (17:49)
--- NOTE | 2022-12-12 17:52 | P.HP ---
Certification for Inpatient Patient admitted to: Observation With expected LOS: <2 Midnights Patient will require the following post-hospital care: None Practitioner: I am a practitioner with admitting privileges, knowledge of patient current condition, hospital course, and medical plan of care. Services: Services provided to patient in accordance with Admission requirements found in Title 42 Section 412.3 of the Code of Federal Regulations Patient History Date of Service: 12/12/22 Reason for admission: Chesr pain History of Present Illness: Patient is an 82-year-old female with a past medical history significant for hyperlipidemia, hard of hearing, hypertension, GERD, urinary retention who presents with complaint of substernal chest pain. Patient reported Chest pain 2 days ago which self resolved. Yesterday, patient started having chest pain again. Patient rated pain as 8/10 in severity and described pain pressure in quality. Patient indicated that pain radiates to her left shoulder and upper back. Patient also complains of mild abdominal pain and reported 2 episodes of diarrhea today. Patient denies any other signs or symptoms. Symptoms are aggravated or relieved by nothing. Family decided to bring patient to the hospital for medical evaluation. Patient noted with BLE edema dn right foot wound Allergies penicillin G Allergy (Unknown, Verified 05/19/15 10:03) Hives Sulfa (Sulfonamide Antibiotics) Allergy (Unknown, Verified 05/19/15 10:03) Hives Penicillins Allergy (Verified 05/19/15 10:03) Shortness of breath Home Medications: Dexlansoprazole [Dexilant] 60 mg PO DAILY 10/08/13 Insulin Detemir [Levemir] 25 units SQ BEDTIME 10/08/13 Potassium Cl [Klor-Con 8] 10 meq PO DAILY 10/08/13 predniSONE [Deltasone] 20 mg PO DAILY 10/08/13 Alendronate Sodium [Fosamax] 70 mg PO EVERY 7TH DAY 05/19/15 Latanoprost [Xalatan] 2.5 ml OP DAILY 05/19/15 Tobramycin/Dexamethasone [Tobramycin-Dexameth Ophth Susp] 5 ml OP QID 05/19/15 lisinopriL [Prinivil] 10 mg PO DAILY 05/19/15 - Past Medical/Surgical History Diabetic: Yes -: Diabetic 32 years -: [place] -: GERD -: HLD -: HTN -: Gallbladder surgery - Family History Family History: Reviewed- Non-Contributory - Social History Smoking Status: Never smoker Alcohol use: No CD- Drugs: No Caffeine use: Yes Place of Residence: Home Review of Systems General: Unremarkable Eyes: Unremarkable ENT: Unremarkable Respiratory: Unremarkable Cardiovascular: Chest Pain Gastrointestinal: Abdominal Pain, Diarrhea Genitourinary: Retention Musculoskeletal: Shoulder Pain, Back Pain Integumentary: Other (Right foot wound) Neurological: Unremarkable Lymphatics: Unremarkable Physical Examination - Physical Exam General: Alert, In no apparent distress, Oriented x3, Cooperative HEENT: Atraumatic, PERRLA, Mucous membr. moist/pink, EOMI, Sclerae nonicteric Neck: Supple, 2+ carotid pulse no bruit, No LAD, Without JVD or thyroid abnor mality Respiratory: Clear to auscultation bilaterally, Normal air movement Cardiovascular: Regular rate/rhythm, Normal S1 S2, Edema Capillary refill: <2 Seconds Gastrointestinal: Normal bowel sounds, Non-distended, No tenderness, Tenderness Musculoskeletal: Tenderness Integumentary: No rashes, Other (Right foot wound ) Neurological: Normal speech, Normal tone, Normal affect Lymphatics: No axilla or inguinal lymphadenopathy - Studies Laboratory Data (last 24 hrs) 12/12/22 16:05: WBC 5.10, Hgb 10.3 L, Hct 28.6 L, Plt Count 156 12/12/22 16:05: Sodium 136, Potassium 4.0, BUN 23 H, Creatinine 1.10 H, Glucose 230 H Assessment and Plan - Plan --Chest pain. To rule ACS. Will trend serial troponins. Supervisor Compounding And Finishing consulted. Echocardiogram pending to assess cardiac structures and functions. Telemetry to monitor for any significant arrhythmia. We will await further recommendation from insurance account executive. -- Acute pain. We will manage pain with current pain medication regimen --Hypertension. Poorly controlled. Continue home medications hydralazine as needed --Hyperlipidemia. Continue home medication . --GERD. Continue home medication. -- Urinary retention. Continue Sal catheter care. -- DM2. BS monitoring with sliding scale insulin. --Glaucoma. Continue latanoprost. --Anemia of chronic disease. H&H stable. We will continue to monitor hemoglobin and transfuse if less than 7.0. --Right foot wound. Wound team consulted. Will await recommendations. --CKD 3A. Stable. We will continue to monitor renal function. --DVT prophylaxis with Lovenox subQ. Discharge Plan: Home Plan to discharge in: Greater than 2 days - Advance Directives Does patient have a Living Will: No Does patient have a Durable POA for Healthcare: No - Code Status/Comfort Care Code Status Assessed: Yes Physician Review: Patient Assessed, Agree with Above Assessment and Plan Critical Care: No
[2022-12-12 18:25] LABS: Magnesium 2.2 mg/dL (1.6-2.4); Thyroid Stimulating Hormone 1.49 uIU/mL (0.358-3.740)
--- NOTE | 2022-12-12 18:42 | RAD REPORT ---
EXAM DESCRIPTION: CT - Abdomen Wo Contrast CLINICAL HISTORY: Abd pain Abdominal pain COMPARISON: <Comparisons> TECHNIQUE All CT scans are performed using dose optimization technique as appropriate and may includ e automated exposure control or mA/KV adjustment according to patient size. FINDINGS: The lower lung park are clear. Calcified granulomata are present in the liver and spleen. No aggressive solid organ abnormality. Mil d atrophy left kidney. Punctate bilateral nephrolithiasis without hydronephrosis. No free fluid, bowel obstruction or free air. Moderate stool volume is seen. There is distention of t he stomach is well noted. Small fat containing umbilical hernia. No significant adenopathy in the abdomen. Old compression deformity, mild, lower thoracic spine. IMPRESSION: Punctate bilateral nephrolithiasis without hydronephrosis.
[2022-12-12] MEDS: INSULIN -REGULAR HUMAN 50 UNIT/0.5 ML ML SQ SCH (21:00)
[2022-12-12] MEDS: ENOXAPARIN 30 MG/0.3 ML SQ SCH (21:00)
[2022-12-12] MEDS ORDERED: ENOXAPARIN 30 MG/0.3 ML SQ ONE (22:24)
[2022-12-12] MEDS ORDERED: HYDROCODONE/APAP 10/325 TAB ONE (22:24)
[2022-12-12] MEDS ORDERED: ASPIRIN 325 MG TAB ONE (22:24)
[2022-12-12] MEDS ORDERED: HYDROCODONE/APAP 5/325 MG TAB ONE (22:27)
[2022-12-12] MEDS: HYDROCODONE/APAP 5/325 MG TAB PO PRN (22:57)
[2022-12-13 02:39] VITALS: BMI 22.2
[2022-12-13 02:46] LABS: Hematocrit 26.9 % (36.0-45.0); Lymphocytes % 19.4 % (15.3-44.8); MCV 86.1 fL (80-100); RBC Red Blood Cell Count 3.13 M/uL (3.86-4.86)
[2022-12-13 03:05] LABS: Potassium 3.9 mEq/L (3.5-5.1)
[2022-12-13 04:44] LABS: Specific Gravity 1.015 (1.005-1.030); Urine Bacteria <20 /HPF (<20); Urine Bilirubin NEGATIVE (Negative); Urine Blood Negative (Negative); Urine Clarity Clear (Clear); Urine Color Light-Yellow (Yellow); Urine Glucose NEGATIVE (Negative); Urine Protein 1+ (Negative); Urine RBC <5 /HPF (None Seen); Urine Urobilinogen Normal (Normal); Urine WBC Clump Rare /HPF (None Seen); Urine pH 5.5 (5.0-7.0)
[2022-12-13] MEDS ORDERED: HYDRALAZINE HCL 20 MG/ML VIAL IV PRN (06:13)
[2022-12-13] MEDS ORDERED: POTASSIUM 25 MEQ EFFERV TAB PO ONE (07:12)
[2022-12-13] MEDS: INSULIN -REGULAR HUMAN 50 UNIT/0.5 ML ML SQ SCH ×4 (07:26→21:00)
--- NOTE | 2022-12-13 08:18 | EKG ---
Test Date: 2022-12-12 Test Time: 16:13:23 Chrome Worker: AMANDA MEASUREMENT RESULTS: Intervals: Rate: 76 NE: 208 QRSD: 112 QT: 412 QTc: 463 [place]: P: NE: 208 QRS: -72 T: 21 INTERPRETIVE STATEMENTS: Normal sinus rhythm Left axis deviation Right bundle branch block Inferior infarct, age undetermined Anterior infarct, age undetermined Abnormal ECG Compared to ECG 05/19/2015 10:09:03 Right bundle-branch block now present Myocardial infarct finding now present ST (T wave) deviation no longer present Electronically Signed On 12-13-22 08:17:13 CDT by Omer Hernandez
[2022-12-13] MEDS: ENOXAPARIN 30 MG/0.3 ML SQ SCH (09:00)
[2022-12-13] MEDS: HYDROCODONE/APAP 5/325 MG TAB PO PRN ×2 (09:06→14:30)
[2022-12-13] MEDS ORDERED: HYDROCODONE/APAP 5/325 MG TAB ONE (14:07)
--- NOTE | 2022-12-13 15:55 | CON ---
Date of Consultation: 12/13/2022 Reason For Consultation: Chest pain. History Of Present Illness: Ms. Briggs is 82. Has a history of hypertension, dyslipidemia. She andrew es lisinopril, insulin, and prednisone. She has diabetes as well. Came in with left-sided chest candy n radiating to the left shoulder, stabbing, occasionally worse with breathing and exertion without an y nausea, vomiting, diaphoresis, PND, orthopnea, pedal edema, palpitations, or syncope. VT has been ruled out. Past Medical History: As stated above. Allergies: SHE IS ALLERGIC TO SULFA AND PENICILLIN. Family History: Negative. Social History: Negative. Medications: Listed earlier. Physical Examination: Vital Signs: Stable. She was afebrile. HEENT: Negative. Neck: Supple with no bruit. Chest: Clear to auscultation and percussion. Cardiac: Revealed a regular rhythm and rate. No murmurs, gallops, or rubs. Abdomen: Benign. Extremities: Revealed no clubbing, cyanosis, or edema. Diagnostic Data: Within normal limit. EKG is nonspecific. Impression And Plan: This is a patient with multiple cardiac risk factors including her age, hyperte nsion, dyslipidemia, diabetes. Symptoms are suspicious for coronary artery disease. I suggest we do a stress test tomorrow before making any further decisions. I agree with her present regimen. MARISABEL/FRANCK Voice ID: [id number] Report ID: [id number]
--- NOTE | 2022-12-13 17:45 | P.PN ---
Subjective Date of Service: 12/13/22 Chief Complaint: Chest pain No acute events overnight. History is very limited as Ms. Briggs's hearing aids were out of battery and she could not hear me. I was able to speak with her daughter, Ms. Chi, who was at bedside. She explained to me that Ms. Briggs has been having intermittent chest pain without any obvious inciting or alleviating factors. She denies any shortness of breath or nausea/vomiting. Cardiology consulted, plan for nuclear stress test tomorrow. Review of Systems 10-point ROS is otherwise unremarkable Cardiovascular: Chest Pain Physical Examination - Vital Signs Temperature: 98.2 F Blood Pressure: 142/60 Pulse: 70 Respirations: 16 Pulse Ox (%): 96 - Physical Exam General: Alert, In no apparent distress, Oriented x3 HEENT: Atraumatic, Mucous membr. moist/pink, Sclerae nonicteric Neck: JVD not distended Respiratory: Clear to auscultation bilaterally, Normal air movement Cardiovascular: No edema, Regular rate/rhythm, Normal S1 S2, No gallops, No rubs, No murmurs Gastrointestinal: Normal bowel sounds, Soft and benign, Non-distended, No tenderness, No rebound, No guarding Musculoskeletal: No clubbing Integumentary: Diabetic ulcer (clean, located on lateral dorsal aspect of right foot) Neurological: Normal speech, Normal affect, Other (severe sensorineural hearing loss) - Studies Laboratory Data (last 24 hrs) 12/12/22 16:05: Phosphorus 3.0, Magnesium 2.2 Assessment And Plan - Plan # Chest Pain # Hypertension # Hyperlipidemia - Evaluation thus far: - EKG: without reported STEMI criteria, trend - Serial troponin: 6.7 -> 8.2 -> 7.9 - Ordered transthoracic echocardiogram - 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
--- NOTE | 2022-12-13 18:36 | RAD REPORT ---
EXAM DESCRIPTION: CT - Chest For Pe Angio - 12/13/2022 6:10 pm CLINICAL HISTORY: Chest pain. elevated d-dimer COMPARISON: No comparisons TECHNIQUE: CT angiogram of the pulmonary arteries was performed with MIP. All CT scans are performed using dose optimization technique as appropriate and may include automated exposure control or mA/KV adjustment according to patient size. FINDINGS: No evidence of pulmonary thromboembolism. No acute aortic finding demonstrated. Ground-glass opacity is present in both lung bases compatible with pulmonary edema. No significant pericardial or pleural fluid. No concerning bony finding. IMPRESSION: No evidence of pulmonary thromboembolism. Mild to moderate pulmonary edema.
--- NOTE | 2022-12-13 18:39 | RAD REPORT ---
EXAM DESCRIPTION: RAD - Foot Right 3 View - 12/13/2022 6:24 pm CLINICAL HISTORY: rule out osteomyelitis Pain and swelling COMPARISON: Foot Right 3 View dated 03/30/2021; MRI FOOT RIGHT dated 10/21/2013 FINDINGS: Prominent diffuse osteopenia is seen. The majority of the fifth metatarsal shaft is absent . This is a new finding since 03/30/2021. Large posterior and plantar calcaneal spurs. Atherosclerosis. IMPRESSION: The majority of the fifth metatarsal shaft is absent, new since 03/30/2021 study. If no surgery has been performed in this region, this may be related to bone destruction/osteomyelitis.
--- NOTE | 2022-12-13 20:06 | RAD REPORT ---
EXAM DESCRIPTION: US - Extrem Venous W Compress Edilberto - 12/13/2022 7:58 pm CLINICAL HISTORY: elevated d-dimer Bilateral leg edema and swelling. COMPARISON: EXT VENOUS UNI LTD dated 05/18/2015 TECHNIQUE: Real-time sonographic interrogation of the left and right lower extremity deep venous sys tems was performed. FINDINGS: Normal compressibility, flow augmentation, phasic flow and spontaneous flow is identified in both the left and right lower extremity deep venous systems. IMPRESSION: No sonographic evidence of left or right lower extremity deep venous thrombosis.
[2022-12-13 20:59] VITALS: O2SAT 97
[2022-12-13] MEDS: GABAPENTIN 100 MG CAP PO SCH (21:30)
[2022-12-13] MEDS: ATORVASTATIN 40 MG TAB PO SCH (21:30)
[2022-12-13] MEDS: FUROSEMIDE 20 MG/ 2ML VIAL IV ONE ×2 (21:30→21:36)
[2022-12-14 03:57] LABS: Absolute Lymphocytes (CBC) 0.7 K/uL (0.7-4.9); Hematocrit 28.4 % (36.0-45.0); Lymphocytes % 14.4 % (15.3-44.8); MCV 87.3 fL (80-100); MPV 7.3 fL (7.6-11.3); RBC Red Blood Cell Count 3.25 M/uL (3.86-4.86)
[2022-12-14 04:07] LABS: C-Reactive Protein 2.99 mg/L (<3.00); Phosphorus 3.5 mg/dL (2.5-4.9); Potassium 3.9 mEq/L (3.5-5.1)
--- NOTE | 2022-12-14 06:45 | ECHO ---
HEIGHT: 4 ft 11 in WEIGHT: 110 lb 0.171 oz DATE OF STUDY: 12/13/[address]: Jonnathan Daniel 2-DIMENSIONAL: YES M.MODE: YES DOPPLER: YES COLOR FLOW: YES TDS: PORTABLE: YES DEFINITY: BUBBLE STUDY: DIAGNOSIS: CHEST PAIN CARDIAC HISTORY: CATHERIZATION: NO SURGERY: NO PROSTHETIC VALVE: NO PACEMAKER: NO MEASUREMENTS (cm) DIASTOLIC (NORMALS) SYSTOLIC (NORMALS) IVSd 0.8 (0.6-1.2) LA Diam 2.0 (1.9-4.0) LVEF 71% LVIDd 3.4 (3.5-5.7) LVIDs 2.0 (2.0-3.5) %FS 39% LVPWd 0.8 (0.6-1.2) Ao Diam 2.6 (2.0-3.7) 2 DIMENSIONAL ASSESSMENT: RIGHT ATRIUM: NORMAL LEFT ATRIUM: NORMAL RIGHT VENTRICLE: NORMAL LEFT VENTRICLE: NORMAL TRICUSPID VALVE: NORMAL MITRAL VALVE: NORMAL PULMONIC VALVE: NORMAL AORTIC VALVE: NORMAL PERICARDIAL EFFUSION: NONE AORTIC ROOT: NORMAL LEFT VENTRICULAR WALL MOTION: NORMAL DOPPLER/COLOR FLOW: MILD TRICUSPID REGURGITATION COMMENTS: 1. NORMAL LEFT VENTRICULAR SIZE AND FUNCTION 2. NO WALL MOTION ABNORMALITY 3. NO EFFUSION TECHNOLOGIST: MIGUELANGEL MATT
[2022-12-14] MEDS: INSULIN -REGULAR HUMAN 50 UNIT/0.5 ML ML SQ SCH ×4 (07:30→21:00)
[2022-12-14] MEDS ORDERED: REGADENOSON 0.4 MG/5 ML SYR IV ONE (07:42)
--- NOTE | 2022-12-14 08:40 | RAD REPORT ---
EXAM DESCRIPTION: NM - Rest Stress Cardiac Imaging - 12/14/2022 8:24 am CLINICAL HISTORY: CP Chest pain. COMPARISON: No comparisons TECHNIQUE: The patient was administered approximately 10mCi of Tc 99m Sestamibi prior to resting SPE CT imaging of the heart. The patient was then administered approximately 30 mCi of Tc 99m Sestamibi f ollowing exercise or pharmacologic stress. Multiplanar SPECT images were reviewed. FINDINGS: No stress induced ischemic defect is seen to suggest stress induced ischemia. No fixed def ect is seen to suggest hibernating myocardium or scarred myocardium. The end diastolic volume is 51 ml, the end systolic volume is 9 ml, and the ejection fraction is 82 % . IMPRESSION: No stress induced ischemia.
[2022-12-14] MEDS ORDERED: POTASSIUM CL SA 10 MEQ TAB PO ONE (09:00)
[2022-12-14] MEDS: GABAPENTIN 100 MG CAP PO SCH ×2 (09:23→22:08)
[2022-12-14] MEDS: LOSARTAN POTASSIUM 50 MG TABLET PO SCH (09:23)
[2022-12-14] MEDS: ASPIRIN 81 MG CHEWABLE TABLET PO SCH (09:23)
[2022-12-14] MEDS: AMLODIPINE 5 MG TAB PO SCH (09:23)
[2022-12-14] MEDS: CEFTRIAXONE 1,000 MG in NA CHLORIDE 0.9% 50 ML IVPB SCH (09:24)
[2022-12-14] MEDS: ENOXAPARIN 30 MG/0.3 ML SQ SCH (09:24)
--- NOTE | 2022-12-14 13:55 | P.PN ---
Subjective Date of Service: 12/14/22 Chief Complaint: Chest pain Subjective: No new changes, Improving had stress test done today. 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 awaiting final report and further management plans. statin and aspirin therapy to be continued. 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 - Wound care consulted # Punctate Bilateral Nephrolithiasis without Hydronephrosis - Follow-up with PCP Disposition: Pending cardiology recommendations. Physician Review: Patient Assessed, Agree with Above Assessment and Plan
--- NOTE | 2022-12-14 14:23 | TREADPHA ---
DX: CHEST PAIN Date of Study: 12/14/2022 Ht: 4' 11 " Wt: 110 lb 0.171 oz Consulting Physician: SANCHEZ MEDICATIONS: TYLENOL, NORCO, ASPIRIN, LIPITOR, LOVENOX, ZOFRAN, NEURONTIN, APRESOLINE, NOVOLIN-R, COZAAR HISTORY: 82 YEAR OLD FEMALE WITH COMPLAINTS OF CHEST PAIN. HISTORY OF HYPERLIPIDEMIA, HYPERTENSION, DIABETES MELLITUS TYPE 2, DENIES SMOKING, RECREATIONAL DRUG USE OR PREVIOUS HEART SURGERIES. REPORTS OCCASIONAL ALCOHOL USE 1-2 DRINKS PER DAY. PHYSICIAL EXAMINATION: RESTING B.P.: 158/61 RESTING H.R.: 69 RESTING EKG: SINUS RHYTHM, RIGHT BUNDLE BRANCH BLOCK PROTOCOL: PHARMACOLOGIC EXERCISE TIME: 3:30 B.P. AT PEAK STRESS: 100/44 IMPRESSION: LEXISCAN INJECTED. CARDIOLITE GIVEN PER PROTOCOL. SEE NUCLEAR MEDICINE REPORT. OCCASIONAL PREMATURE ATRIAL COMPLEXES NOTED PRIOR TO INJECTION. DENIES CHEST PAIN OR SHORTNESS OF BREATH. NO PREMATURE VENTRICULAR COMPLEXES, PREMATURE ATRIAL COMPLEXES, SUPRAVENTRICULAR TACHYCARDIA OR TACHYCARDIA NOTED DURING TEST OR IN RECOVERY.
[2022-12-14] MEDS: ATORVASTATIN 40 MG TAB PO SCH (22:08)
[2022-12-15 04:02] LABS: Potassium 4.1 mEq/L (3.5-5.1)
[2022-12-15] MEDS: INSULIN -REGULAR HUMAN 50 UNIT/0.5 ML ML SQ SCH ×3 (07:30→16:20)
[2022-12-15] MEDS: CEFTRIAXONE 1,000 MG in NA CHLORIDE 0.9% 50 ML IVPB SCH (09:02)
[2022-12-15] MEDS: ENOXAPARIN 30 MG/0.3 ML SQ SCH (09:02)
[2022-12-15] MEDS: ASPIRIN 81 MG CHEWABLE TABLET PO SCH (09:03)
[2022-12-15] MEDS: GABAPENTIN 100 MG CAP PO SCH (09:03)
[2022-12-15] MEDS: AMLODIPINE 5 MG TAB PO SCH (09:03)
[2022-12-15] MEDS: LOSARTAN POTASSIUM 50 MG TABLET PO SCH (09:03)
[2022-12-15] MEDS: HYDROCODONE/APAP 5/325 MG TAB PO PRN (11:36)
[2022-12-15 12:03] VITALS: TEMP 97.3
[2022-12-15] MEDS ORDERED: levoFLOXacin 750 MG TAB PO SCH (13:00)
--- NOTE | 2022-12-15 14:01 | PN ---
Date of Progress Note: 12/15/2022 Ms. Briggs has a history of diabetes, hypertension, dyslipidemia, came in with atypical chest pain. Yesterday, nuclear stress test was done, showed absolutely no evidence for ischemia. She remains in the hospital for now for observation and other treatment, but from a heart standpoint, she can go neil e whenever it is okay with admitting physician. We will see her in the office as an outpatient as jonathan PETIT/FRANCK Voice ID: [id number] Report ID: [id number]
[2022-12-15 16:29] VITALS: BP 123/60
--- NOTE | 2022-12-15 17:02 | P.DS ---
Admission Date: 12/12/22 Discharge Date: 12/15/22 Disposition: DC HOME/HOME HEALTH CARE Discharge Condition: FAIR Reason for Admission: Chest pain - Problems (1) Chest pain Current Visit: Yes Status: Acute (2) Diabetic foot ulcer Current Visit: No Status: Chronic (3) Acute cystitis without hematuria Current Visit: Yes Status: Acute Brief History of Present Illness: Patient is an 82-year-old female with a past medical history significant for hyperlipidemia, hard of hearing, hypertension, GERD, urinary retention who presented with complaint of substernal chest pain. Patient reported Chest pain 2 days prior to presentation which self resolved. Patient started having chest pain again. Patient rated pain as 8/10 in severity and described pain pressure in quality. Patient indicated that pain radiates to her left shoulder and upper back. Patient also complained of mild abdominal pain and reported 2 episodes of diarrhea today.Family decided to bring patient to the hospital for medical evaluation. Patient noted with BLE edema dn right foot wound. Initial troponin negative, patient was hospitalized for further management. Hospital Course: Chest Pain/Hypertension/Hyperlipidemia - Evaluation thus far: - EKG: Right bundle branch block - Serial troponin: 6.7 -> 8.2 -> 7.9 - transthoracic echocardiogram: Unremarkable, normal EF. - Chest x-ray = "moderate COPD." - D-dimer = 609 - CT chest angiogram and bilateral lower extremity Doppler unremarkable, no thromboembolism. -had nuclear stress test done which did not show any stress-induced ischemia -Cleared for discharge by cardiology -statin and aspirin therapy continued. 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 Punctate Bilateral Nephrolithiasis without Hydronephrosis - Follow-up with PCP Vital Signs/Physical Exam: Temp Pulse Resp BP Pulse Ox 97.3 F 63 16 123/60 96 12/15/22 16:00 12/15/22 16:00 12/15/22 16:00 12/15/22 16:00 12/15/22 16:00 General: Alert, In no apparent distress, Oriented x3 HEENT: Mucous membr. moist/pink Neck: Supple, JVD not distended Respiratory: Clear to auscultation bilaterally, Normal air movement Cardiovascular: No edema, Regular rate/rhythm, Normal S1 S2 Gastrointestinal: Soft and benign, Non-distended Integumentary: No cyanosis Neurological: Other (No focal motor deficit) Laboratory Data at Discharge: WBC 5.00 thou/uL (4.3-10.9) 12/14/22 03:16 Hgb 10.0 g/dL (12.0-15.0) L 12/14/22 03:16 Hct 28.4 % (36.0-45.0) L 12/14/22 03:16 Plt Count 140 thou/uL (152-406) L 12/14/22 03:16 Sodium 135 mEq/L (136-145) L 12/15/22 03:04 Potassium 4.1 mEq/L (3.5-5.1) 12/15/22 03:04 BUN 31 mg/dL (7-18) H 12/15/22 03:04 Creatinine 1.34 mg/dL (0.55-1.02) H 12/15/22 03:04 Glucose 99 mg/dL (74-106) 12/15/22 03:04 Phosphorus 3.5 mg/dL (2.5-4.9) 12/14/22 03:16 Magnesium 2.0 mg/dL (1.6-2.4) 12/14/22 03:16 Triglycerides 65 mg/dL (<150) 12/13/22 02:21 Cholesterol 98 mg/dL (<200) 12/13/22 02:21 HDL Cholesterol 59 mg/dL (40-60) 12/13/22 02:21 Cholesterol/HDL Ratio 1.66 12/13/22 02:21 Home Medications: Amlodipine [Norvasc*] 1 tab PO DAILY 12/13/22 Atorvastatin Calcium 1 tab PO BEDTIME 12/13/22 Gabapentin [Neurontin*] 1 tab PO BID 12/13/22 Losartan Potassium 1 tab PO DAILY 12/13/22 levoFLOXacin [Levaquin*] 750 mg PO Q48H #3 tab 12/15/22 New Medications: levoFLOXacin [Levaquin*] 750 mg PO Q48H #3 tab Diet: ADA Activity: Fall precautions Followup: NONE,NONE [Primary Care Provider] - 1 Week Time spent managing pt's care (in minutes): 40
== END 2022-12-15 15:15 | disposition home or self-care (01) | DRG 313 ==
LOC: ER 15:11 → ERHOLD 17:44 → 2ND 12-13 15:32
PROVIDERS: ADMIT Internal Medicine; ATTEND Internal Medicine
DX: R07.89 Other chest pain (principal); N30.00 Acute cystitis without hematuria; E78.00 Pure hypercholesterolemia, unspecified; K21.9 Gastro-esophageal reflux disease without esophagitis; I12.9 Hypertensive chronic kidney disease with stage 1 through stage 4 chronic kidney disease, or unspecified chronic kidney disease; N18.31 Chronic kidney disease, stage 3a; E11.22 Type 2 diabetes mellitus with diabetic chronic kidney disease; E11.39 Type 2 diabetes mellitus with other diabetic ophthalmic complication; E11.40 Type 2 diabetes mellitus with diabetic neuropathy, unspecified; E11.621 Type 2 diabetes mellitus with foot ulcer; L97.519 Non-pressure chronic ulcer of other part of right foot with unspecified severity; H42 Glaucoma in diseases classified elsewhere; D63.1 Anemia in chronic kidney disease; N20.0 Calculus of kidney; H91.90 Unspecified hearing loss, unspecified ear; J44.9 Chronic obstructive pulmonary disease, unspecified; R33.9 Retention of urine, unspecified; Z79.4 Long term (current) use of insulin; Z88.0 Allergy status to penicillin; Z88.1 Allergy status to other antibiotic agents; Z79.52 Long term (current) use of systemic steroids; Z79.899 Other long term (current) drug therapy
CPT/HCPCS: 36415; 71045; 71275; 74150; 78452; 80048; 80061; 81001; 82947; 83735; 83880; 84100; 84439; 84443; 84484; 85025; 85379; 86140; 87077; 87086; 87088; 87186; 93005; 93017; 93306; 93970; 99284; A9500; J0696; J1650; J1940; J2785; Q9967

== ENCOUNTER 2024-03-02 13:41 | Emergency (ER) | payer OTHER ==
--- NOTE | 2024-03-02 15:19 | RAD REPORT ---
EXAM DESCRIPTION: CT - Head C Spine Cap Wo Con - 03/02/2024 3:04 pm CLINICAL HISTORY: Trauma, head and neck injury. Chest, abdomen and pelvis pain. fall, neck/back/abd/pelvic pain COMPARISON: <Comparisons> TECHNIQUE: CT head without contrast. CT cervical spine without contrast with coronal and sagittal reformatted images. CT chest, abdomen and pelvis without contrast with coronal and sagittal reformatted images of the spi ne. All CT scans are performed using dose optimization technique as appropriate and may include automated exposure control or mA/KV adjustment according to patient size. FINDINGS: CT HEAD WITHOUT CONTRAST: Significant streak artifact is present limiting quality of the study. Grossly, no intracranial hemor rhage, hydrocephalus or midline shift seen. The paranasal sinuses and mastoids are clear. The calvarium is intact. CT CERVICAL SPINE WITHOUT CONTRAST: No fracture or subluxation. 2 mm degenerative anterolisthesis of C4 on 5. The prevertebral soft tissu es are normal in thickness. CT CHEST, ABDOMEN, PELVIS WITHOUT CONTRAST: NOTE: Lack of contrast is a significant limitation in the assessment of trauma related findings. Spec ifically, solid organ, vascular and bowel evaluation is significantly limited. The lungs are clear.No pneumothorax or pericardial/pleural fluid. No evidence of intra-abdominal visceral injury, free fluid or free air is seen within the above detai led limitations. Atrophic left kidney seen. Prominent sigmoid diverticulosis without diverticulitis. No acute fractures evident. IMPRESSION: Negative for acute traumatic findings within the above detailed limitations.
--- NOTE | 2024-03-02 16:27 | RAD REPORT ---
EXAM DESCRIPTION: RAD - Femur Right - 03/02/2024 4:07 pm CLINICAL HISTORY: PAIN COMPARISON: Shoulder Right 2 View dated 03/02/2024 FINDINGS: Diffuse osteopenia. No acute fracture or dislocation seen. Arterial atherosclerosis.
--- NOTE | 2024-03-02 16:28 | RAD REPORT ---
EXAM DESCRIPTION: RAD - Shoulder Right 2 View - 03/02/2024 4:07 pm CLINICAL HISTORY: PAIN COMPARISON: Head C Spine Cap Wo Con dated 03/02/2024 FINDINGS: Diffuse osteopenia is seen. No acute fracture suspected.
--- NOTE | 2024-03-02 17:04 | EDPHYS ---
Physician Documentation [facility] Name: Maura Briggs Age: 83 yrs Sex: Female : 1940 Arrival Date: 03/02/2024 Time: 13:41 Bed 11 Private MD: ED Physician Tristan Sierra HPI: 03/02 15:49 This 83 yrs old Female presents to ER via Wheelchair with complaints of Fall rn Injury. 15:49 Details of fall: The patient fell from an upright position, while standing. rn 15:51 Onset: The symptoms/episode began/occurred 2 day(s) ago. Associated injuries: The rn patient sustained Right leg, right shoulder, right abdomen/right back. Severity of symptoms: At their worst the symptoms were mild, in the emergency department the symptoms are unchanged. The patient has not experienced similar symptoms in the past. Family reports fall in shower, landed on right side of body. Still in pain today so came in for evaluation. Patient mainly restricted to wheelchair and lays in bed. Patient reports pain to right shoulder and right leg/hip and right side of abdomen/flank. No LOC or head injury.. Historical: - Allergies: 14:06 PENICILLINS; tl4 14:06 Sulfa (Sulfonamide Antibiotics); tl4 - Home Meds: 14:06 gabapentin 100 mg oral capsule 1 cap 2 times per day [Active]; furosemide 20 mg Oral tl4 tablet 1 tab daily [Active]; atorvastatin 40 mg oral tablet 1 tab daily [Active]; losartan 50 mg oral tablet 1 tab daily [Active]; amlodipine 10 mg tablet 1 tab daily [Active]; - PMHx: 14:06 Hypercholesterolemia; Hypertensive disorder; tl4 - Immunization history:: Adult Immunizations unknown. - Infectious Disease History:: Denies. - Social history:: Smoking status: Patient denies any tobacco usage or history of. - Family history:: not pertinent. - Hospitalizations: : No recent hospitalization is reported. ROS: 15:51 Constitutional: Negative for fever, chills, and weight loss, Eyes: Negative for injury, rn pain, redness, and discharge, Neck: Negative for injury, pain, and swelling, Cardiovascular: Negative for chest pain, palpitations, and edema, Respiratory: Negative for shortness of breath, cough, wheezing, and pleuritic chest pain, Abdomen/GI: Positive for right flank pain MS/Extremity: Positive for right shoulder and right hip/thigh pain Skin: Negative for injury, rash, and discoloration, Neuro: Negative for headache, weakness, numbness, tingling, and seizure, Exam: 15:51 Constitutional: This is a well developed, well nourished patient who is awake, alert, rn and in no acute distress. Head/Face: Normocephalic, atraumatic. ENT: No oral injury. Neck: No midline cervical tenderness Chest/axilla: No costal tenderness or crepitus Cardiovascular: Regular rate and rhythm . No pulse deficits. Respiratory: No increased work of breathing, no retractions or nasal flaring. Abdomen/GI: Soft, non-tender MS/ Extremity: Pulses equal, no cyanosis. Neurovascular intact. Mild painful range of motion right leg, seems isolated to mid thigh. Neuro: Awake and alert, GCS 15, oriented to person, place, time, and situation. Vital Signs: 14:03 BP 121 / 48; Pulse 73; Resp 16; Temp 97.2; Pulse Ox 100% on R/A; Weight 54.43 kg; tl4 Height 4 ft. 11 in. ; Pain 8/10; 14:14 BP 121 / 102; Pulse 74; Resp 16; Pulse Ox 98% on R/A; mb9 15:44 BP 132 / 68; Pulse 70; Resp 16; Pulse Ox 99% on R/A; mb9 17:15 BP 118 / 76; Pulse 68; Resp 16; Pulse Ox 99% on R/A; mb9 14:03 Body Mass Index 24.24 (54.43 kg, 149.86 cm) tl4 14:03 Pain Scale: Adult tl4 MDM: 13:49 Patient medically screened. rn 17:03 Differential diagnosis: closed head injury, contusion, fracture, multiple trauma, rn sprain, strain. Data reviewed: vital signs, nurses notes, radiologic studies, CT scan, plain films, and as a result, I will discharge patient. Counseling: I had a detailed discussion with the patient and/or guardian regarding the historical points, exam findings, and any diagnostic results supporting the discharge/admit diagnosis, radiology results, the need for outpatient follow up, to return to the emergency department if symptoms worsen or persist or if there are any questions or concerns that arise at home. Special discussion: I discussed with the patient/guardian in detail that at this point there is no indication for admission to the hospital. It is understood, however, that if the symptoms persist or worsen the patient needs to return immediately for re-evaluation. ED course: No acute traumatic findings on imaging. I have personally reviewed all of the results, including but not limited to imaging deemed necessary to safely discharge this patient at this time. All results given to and printed out for patient. I personally went over all the results with the patient and answered all questions. Patient will follow-up with PCP and or specialist as discussed. Return precautions given and understood.. 03/02 14:29 Order name: CT Traumagram (Head C Spine CAP wo con); Complete Time: 15:31 rn 03/02 15:43 Order name: XRAY Femur RIGHT; Complete Time: 17:03 rn 03/02 15:49 Order name: XRAY Shoulder RIGHT 2 view; Complete Time: 17:03 rn Administered Medications: No medications were administered Disposition Summary: 03/02/24 17:04 Discharge Ordered Notes: Location: Home rn Problem: new rn Symptoms: have improved rn Condition: Stable rn Diagnosis - Contusion of right shoulder rn - Contusion of right hip rn Followup: rn - With: Private Physician - When: As needed - Reason: Recheck today's complaints, Re-evaluation by your physician Discharge Instructions: - Contusion rn - Discharge Summary Sheet mb9 - Preventing Pressure Injuries mb9 - Pressure Injury mb9 Forms: - Medication Reconciliation Form rn - Antibiotic rnp - Prescription Opioid Use rn - Patient Portal Instructions rn - Leadership Thank You Letter rn Signatures: Dispatcher [employer] Tristan Mustafa MD MD rn Logdahl, Toni, RN RN tl4 Corrections: (The following items were deleted from the chart) 17:04 17:04 Contusion of right lower leg rn rn
--- NOTE | 2024-03-02 17:04 | ER ---
Nurse's Notes [facility] Name: Maura Briggs Age: 83 yrs Sex: Female : 1940 Arrival Date: 03/02/2024 Time: 13:41 Bed 11 Private MD: Diagnosis: Contusion of right shoulder;Contusion of right hip Presentation: 03/02 14:03 Chief complaint: Patient states: Pt slipped getting into the shower on . Pt tl4 denies LOC. Pt states she hit the back of her head, right shoulder, right upper back and right leg. Pt states pain is not getting better. Coronavirus screen: At this time, the client does not indicate any symptoms associated with coronavirus-19. Ebola Screen: No symptoms or risks identified at this time. Initial Sepsis Screen: Does the patient meet any 2 criteria? No. Patient's initial sepsis screen is negative. Does the patient have a suspected source of infection? No. Patient's initial sepsis screen is negative. Risk Assessment: Do you want to hurt yourself or someone else? Patient reports no desire to harm self or others. Onset of symptoms was February 29, 2024. 14:03 Method Of Arrival: Wheelchair tl4 14:03 Acuity: MARIA [place] ROSARIO 3 tl4 Triage Assessment: 14:07 General: Appears in no apparent distress. Behavior is cooperative. Pain: Complains of tl4 pain in scalp, back and right leg. EENT: No signs and/or symptoms were reported regarding the EENT system. Neuro: Level of Consciousness is awake, alert, obeys commands, Oriented to person, place, time, situation, Moves all extremities. Cardiovascular: Capillary refill < 3 seconds Patient's skin is warm and dry. Respiratory: Airway is patent Respiratory effort is even, unlabored, Respiratory pattern is regular, symmetrical. GI: No signs and/or symptoms were reported involving the gastrointestinal system. : No signs and/or symptoms were reported regarding the genitourinary system. Derm: No signs and/or symptoms reported regarding the dermatologic system. Musculoskeletal: Reports pain in scalp, back and right leg. Historical: - Allergies: 14:06 PENICILLINS; tl4 14:06 Sulfa (Sulfonamide Antibiotics); tl4 - Home Meds: 14:06 gabapentin 100 mg oral capsule 1 cap 2 times per day [Active]; furosemide 20 mg Oral tl4 tablet 1 tab daily [Active]; atorvastatin 40 mg oral tablet 1 tab daily [Active]; losartan 50 mg oral tablet 1 tab daily [Active]; amlodipine 10 mg tablet 1 tab daily [Active]; - PMHx: 14:06 Hypercholesterolemia; Hypertensive disorder; tl4 - Immunization history:: Adult Immunizations unknown. - Infectious Disease History:: Denies. - Social history:: Smoking status: Patient denies any tobacco usage or history of. - Family history:: not pertinent. - Hospitalizations: : No recent hospitalization is reported. Screenin:09 [facility] ED Fall Risk Assessment (Adult) History of falling in the last 3 months, mb9 including since admission Yes- single mechanical fall (1 pt) Confusion or Disorientation No (0 pts) Intoxicated or Sedated No (0 pts) Impaired Gait No (0 pts) Mobility Assist Device Used Yes (1 pt) Altered Elimination No (0 pt) Score/Fall Risk Level 3 or more points = High Risk Oriented to surroundings, Maintained a safe environment, Educated pt \T\ family on fall prevention, incl call for assistance when getting out of bed. Abuse screen: Denies threats or abuse. Nutritional screening: No deficits noted. Tuberculosis screening: No symptoms or risk factors identified. Assessment: 14:14 General: Appears in no apparent distress. Behavior is calm, cooperative. Pain: mb9 Complains of pain in right leg and back and scalp. Neuro: Carranza Agitation-Sedation Scale (RASS): 0 - Alert and Calm Level of Consciousness is awake, alert, obeys commands, Oriented to person, place, time, situation, Appropriate for age Pupils are PERRLA. Cardiovascular: Patient's skin is warm and dry. Respiratory: Airway is patent Respiratory effort is even, unlabored, Respiratory pattern is regular, symmetrical. GI: No signs and/or symptoms were reported involving the gastrointestinal system. : No signs and/or symptoms were reported regarding the genitourinary system. EENT: No signs and/or symptoms were reported regarding the EENT system. Derm: Skin is fragile, is thin, Skin is dry, Skin is normal, Skin temperature is warm. Musculoskeletal: Range of motion: intact in all extremities. 15:21 Reassessment: No changes from previously documented assessment. Patient and/or family mb9 updated on plan of care and expected duration. Pain level reassessed. Patient is alert, oriented x 3, equal unlabored respirations, skin warm/dry/pink. 17:15 Reassessment: Patient appears in no apparent distress at this time. No changes from mb9 previously documented assessment. Patient and/or family updated on plan of care and expected duration. Pain level reassessed. Patient is alert, oriented x 3, equal unlabored respirations, skin warm/dry/pink. Vital Signs: 14:03 BP 121 / 48; Pulse 73; Resp 16; Temp 97.2; Pulse Ox 100% on R/A; Weight 54.43 kg; tl4 Height 4 ft. 11 in. ; Pain 8/10; 14:14 BP 121 / 102; Pulse 74; Resp 16; Pulse Ox 98% on R/A; mb9 15:44 BP 132 / 68; Pulse 70; Resp 16; Pulse Ox 99% on R/A; mb9 17:15 BP 118 / 76; Pulse 68; Resp 16; Pulse Ox 99% on R/A; mb9 14:03 Body Mass Index 24.24 (54.43 kg, 149.86 cm) tl4 14:03 Pain Scale: Adult tl4 ED Course: 13:44 Patient arrived in ED. mg5 13:48 Tristan Sierra MD is Attending Physician. rn 14:06 Triage completed. tl4 14:08 Arm band placed on right wrist. tl4 14:09 Karley Arrieta, RN is Primary Nurse. mb9 14:10 Placed in gown. Bed in low position. Call light in reach. Side rails up X 1. Provided mb9 Education on: press call light if needing anything. Client placed on continuous cardiac and pulse oximetry monitoring. NIBP monitoring applied. Door closed. Noise minimized. Warm blanket given. Pillow given. 15:06 CT Traumagram (Head C Spine CAP wo con) In Process Unspecified. EDMS 15:37 No provider procedures requiring assistance completed. Patient did not have IV access mb9 during this emergency room visit. 16:08 XRAY Femur RIGHT In Process Unspecified. EDMS 16:08 XRAY Shoulder RIGHT 2 view In Process Unspecified. EDMS Administered Medications: No medications were administered Medication: 14:10 VIS not applicable for this client. mb9 Outcome: 17:04 Discharge ordered by . rn 17:15 Discharged to home via wheelchair, with family, mb9 17:15 Condition: stable 17:15 Discharge instructions given to patient, family, Instructed on discharge instructions, follow up and referral plans. Demonstrated understanding of instructions, follow-up care, 17:15 Patient left the ED. rosemary Signatures: Dispatcher [employer] Tristan Mustafa MD MD rn Wilkerson, Karley Nicole RN RN mb9 Elzbieta Acevedo mg5 Fazal Navarro RN RN tl4
[2024-03-02 17:28] VITALS: TEMP 97.2; O2SAT 99
[2024-03-02 17:44] VITALS: BP 118/76
== END 2024-03-02 17:15 | disposition home or self-care (01) ==
LOC: ER 13:41
DX: S40.011A Contusion of right shoulder, initial encounter (principal); S70.01XA Contusion of right hip, initial encounter; W18.30XA Fall on same level, unspecified, initial encounter; Y93.E1 Activity, personal bathing and showering
CPT/HCPCS: 70450; 71250; 72125; 99283

== ENCOUNTER 2024-04-30 21:28 | Inpatient (IN) | payer OTHER ==
--- NOTE | 2024-04-30 22:06 | RAD REPORT ---
EXAM DESCRIPTION: RAD - Chest Single View - 04/30/2024 10:01 pm CLINICAL HISTORY: COUGH Chest pain. COMPARISON: <Comparisons> FINDINGS: Portable technique limits examination quality. Mild to moderate bilateral pulmonary opacities are present likely representing pneumonia or pulmonary edema. The heart is upper limit normal in size. No displaced fractures.
[2024-04-30] MEDS ORDERED: CEFTRIAXONE 1000 MG/VIAL ONE (22:51)
[2024-04-30] MEDS ORDERED: NA CHLORIDE 0.9% 1,000 ML ONE (22:52)
[2024-04-30 23:04] LABS: Absolute Lymphocytes (CBC) 0.3 K/uL (0.7-4.9); Absolute Monocytes 0.2 K/uL (0.1-1.3); Absolute Neutrophil 3.7 K/uL (1.8-8.0); Basophils % 0.2 % (0-1.3); Hematocrit 28.1 % (36.0-45.0); Hemoglobin 10.1 g/dL (12.0-15.0); MCH 30.9 pg (27.0-35.0); MCHC 35.9 g/dL (32.0-36.0); MPV 7.1 fL (7.6-11.3); Monocytes % 5.7 % (3.3-12.3); Neutrophils % 88.1 % (41.7-73.7); Nucleated Red Blood Cells % 0.2 % (0-0); Platelets 145 thou/uL (152-406); RBC Red Blood Cell Count 3.26 M/uL (3.86-4.86); Red Cell Distribution Width 13.3 % (12.1-15.2)
[2024-04-30 23:06] LABS: PT Prothrombin Time 13.8 SECONDS (9.4-12.5); Protime INR 1.24
[2024-04-30 23:17] LABS: Albumin 2.9 g/dL (3.4-5.0); Albumin/Globulin Ratio 0.7 (1.1-1.8); Anion Gap 10.4 mEq/L (5.0-15.0); Bilirubin Direct 0.2 mg/dL (0-0.2); Bilirubin Indirect, Calculated 0.2 mg/dL (0.2-0.8); Bilirubin Total 0.4 mg/dL (0.2-1.0); Globulin 4.1 g/dL (2.3-3.5); Magnesium 1.9 mg/dL (1.6-2.4); Potassium 3.4 mEq/L (3.5-5.1); Troponin High Sensitivity 14.2 pg/mL (<58.9)
[2024-04-30 23:20] LABS: SARS-CoV-2 Antigen CONTROL BLUE LINE VIS/BG OK; SARS-CoV-2 Antigen Rapid Res Positive (Negative)
[2024-04-30] MEDS ORDERED: NA CHLORIDE 0.9% 250 ML ONE (23:45)
[2024-04-30] MEDS ORDERED: AZITHROMYCIN 500 MG INJ IVPB ONE (23:45)
[2024-04-30] MEDS ORDERED: FAMOTIDINE 20 MG/2 ML VIAL IV ONE (23:45)
--- NOTE | 2024-04-30 23:58 | EDPHYS ---
Physician Documentation [facility] Name: Maura Briggs Age: 84 yrs Sex: Female : 1940 Arrival Date: 04/30/2024 Time: 21:28 Bed 3 Private MD: ED Physician Todd Weaver HPI: 04/30 23:50 This 84 yrs old Female presents to ER via Wheelchair with complaints of Fever, kenton Cough. 23:50 The patient reports fever, that was measured at 101 degrees Fahrenheit. Onset: The kenton symptoms/episode began/occurred just prior to arrival. Modifying factors: there are no obvious modifying factors. Associated signs and symptoms: Pertinent positives: altered mental status,\E\ chills, cough, nausea. Severity of symptoms: At their worst the symptoms were moderate in the emergency department the symptoms have improved moderately. The patient has not experienced similar symptoms in the past. Historical: - Allergies: 22:03 PENICILLINS; bm8 22:03 Sulfa (Sulfonamide Antibiotics); bm8 - Home Meds: 22:03 amlodipine 10 mg tablet 1 tab daily [Active]; atorvastatin 40 mg Oral tablet 1 tab bm8 daily [Active]; furosemide 20 mg Oral tablet 1 tab daily [Active]; gabapentin 100 mg Oral capsule 1 cap 2 times per day [Active]; losartan 50 mg Oral tablet 1 tab daily [Active]; - PMHx: 22:03 Hypercholesterolemia; Hypertensive disorder; bm8 22:03 Diabetes mellitus; PAD; bm8 - PSHx: 22:03 Unable to Obtain; bm8 - Immunization history:: Adult Immunizations up to date. - Infectious Disease History:: Denies. - Social history:: Smoking status: Patient denies any tobacco usage or history of. ROS: 23:51 Constitutional: Negative for fever, chills, and weight loss, Eyes: Negative for injury, kenton pain, redness, and discharge, ENT: Negative for injury, pain, and discharge, Neck: Negative for injury, pain, and swelling, Cardiovascular: Negative for chest pain, palpitations, and edema, Abdomen/GI: Negative for abdominal pain, nausea, vomiting, diarrhea, and constipation, Back: Negative for injury and pain, : Negative for injury, bleeding, discharge, and swelling, MS/Extremity: Negative for injury and deformity, Skin: Negative for injury, rash, and discoloration, Neuro: Negative for headache, weakness, numbness, tingling, and seizure, Psych: Negative for depression, anxiety, suicide ideation, homicidal ideation, and hallucinations, Allergy/Immunology: Negative for hives, rash, and allergies, Endocrine: Negative for neck swelling, polydipsia, polyuria, polyphagia, and marked weight changes, Hematologic/Lymphatic: Negative for swollen nodes, abnormal bleeding, and unusual bruising, 23:51 Respiratory: Positive for cough, shortness of breath, Exam: 23:51 Constitutional: This is a well developed, well nourished patient who is awake, alert, kenton and in no acute distress. Head/Face: Normocephalic, atraumatic. Eyes: Pupils equal round and reactive to light, extra-ocular motions intact. Lids and lashes normal. Conjunctiva and sclera are non-icteric and not injected. Cornea within normal limits. Periorbital areas with no swelling, redness, or edema. ENT: Nares patent. No nasal discharge, no septal abnormalities noted. Tympanic membranes are normal and external auditory canals are clear. Oropharynx with no redness, swelling, or masses, exudates, or evidence of obstruction, uvula midline. Mucous membranes moist. Neck: Trachea midline, no thyromegaly or masses palpated, and no cervical lymphadenopathy. Supple, full range of motion without nuchal rigidity, or vertebral point tenderness. No Meningismus. Chest/axilla: Normal chest wall appearance and motion. Nontender with no deformity. No lesions are appreciated. Cardiovascular: Regular rate and rhythm with a normal S1 and S2. No gallops, murmurs, or rubs. Normal PMI, no JVD. No pulse deficits. Abdomen/GI: Soft, non-tender, with normal bowel sounds. No distension or tympany. No guarding or rebound. No evidence of tenderness throughout. Back: No spinal tenderness. No costovertebral tenderness. Full range of motion. Female : Normal external genitalia. Skin: Warm, dry with normal turgor. Normal color with no rashes, no lesions, and no evidence of cellulitis. MS/ Extremity: Pulses equal, no cyanosis. Neurovascular intact. Full, normal range of motion. Psych: Awake, alert, with orientation to person, place and time. Behavior, mood, and affect are within normal limits. 23:51 ECG was reviewed by the Attending Physician. 23:51 Respiratory: the patient does not display signs of respiratory distress, Respirations: normal, Breath sounds: bronchial sounds, that are mild, are scattered, decreased breath sounds, that are moderate, are located in both bases, rhonchi, that are mild, are scattered, stridor, is not appreciated, Respiratory rate: 18 Vital Signs: 22:00 BP 116 / 58; Pulse 81; Resp 16; Temp 101.4; Pulse Ox 96% on R/A; Pain 0/10; bm8 22:59 BP 100 / 56; Pulse 72; Resp 14; Temp 99.9; Pulse Ox 97% ; Pain 0/10; bm8 05/01 01:13 BP 99 / 61; Pulse 88; Resp 20; Temp 97.8; Pulse Ox 97% ; Pain 0/10; bm8 03:40 BP 96 / 44; Pulse 74; Resp 14; Temp 97.8; Pulse Ox 97% ; Pain 0/10; bm8 04/30 22:00 Pain Scale: Adult bm8 22:59 Pain Scale: Adult bm8 05/01 01:13 Pain Scale: Adult bm8 03:40 Pain Scale: Adult bm8 [place] Coma Score: 04/30 22:59 Eye Response: spontaneous(4). Motor Response: obeys commands(6). Verbal Response: bm8 oriented(5). Total: 15. 05/01 01:13 Eye Response: spontaneous(4). Motor Response: obeys commands(6). Verbal Response: bm8 oriented(5). Total: 15. 03:40 Eye Response: spontaneous(4). Motor Response: obeys commands(6). Verbal Response: bm8 oriented(5). Total: 15. MDM: 04/30 21:34 Patient medically screened. kenton 23:54 Antibiotic administration: Rocephin and Zithromax given. Differential diagnosis: viral kenton Infection, bacterial infection, URI, bronchitis, pneumonia UTI. Immunization status: Pneumococcal vaccine: Influenza vaccine: Data reviewed: vital signs, nurses notes, EMS record, lab test result(s), EKG, radiologic studies, plain films. Consideration of Admission/Observation Patient was admitted/placed on observation. Escalation of care including admission/observation considered. I considered the following discharge prescriptions or medication management in the emergency department Medications were administered in the Emergency Department. See MAR. Independent interpretation of the following test(s) in the Emergency Department EKG: See my EKG interpretation above. Test considered but Not performed: CT: ct chest. Historians other than the Patient: Daughter/Son: daughter and son. Care significantly affected by the following chronic conditions: Diabetes, Hypertension, [place], cochlear implant. Counseling: I had a detailed discussion with the patient and/or guardian regarding the historical points, exam findings, and any diagnostic results supporting the discharge/admit diagnosis, lab results, radiology results, the need for further work-up and treatment in the hospital. 04/30 21:37 Order name: Basic Metabolic Panel; Complete Time: 23:31 kenton 04/30 21:37 Order name: CBC with Diff [facility] 04/30 21:37 Order name: LFT's; Complete Time: 23:31 [facility] 04/30 21:37 Order name: Magnesium; Complete Time: 23:31 [facility] 04/30 21:37 Order name: NT PRO-BNP; Complete Time: 23:31 [facility] 04/30 21:37 Order name: PT-INR; Complete Time: 23:31 kenton 04/30 21:37 Order name: Troponin HS; Complete Time: 23:31 kenton 04/30 21:37 Order name: Blood Culture Adult (2) [facility] 04/30 21:37 Order name: Lactate w/ 2H reflex if indic.; Complete Time: 23:31 kenton 04/30 21:37 Order name: Flu; Complete Time: 23:31 [facility] 04/30 21:37 Order name: SARS RAPID; Complete Time: 23:31 [facility] 04/30 21:37 Order name: Urinalysis w/ reflexes kenton 04/30 23:07 Order name: Manual Differential EDMS 05/01 03:01 Order name: Urinalysis w/ reflexes EDMS 05/01 03:01 Order name: CBC with Automated Diff EDMS 05/01 03:01 Order name: CBC with Automated Diff EDMS 05/01 03:01 Order name: Comprehensive Metabolic Panel EDMS 05/01 03:01 Order name: Comprehensive Metabolic Panel EDMS 04/30 21:58 Order name: Chest Single View; Complete Time: 23:31 EDMS 04/30 21:37 Order name: EKG; Complete Time: 21:37 [facility] 04/30 21:37 Order name: Cardiac monitoring; Complete Time: :59 [facility] 04/30 21:37 Order name: EKG - Nurse/Tech; Complete Time: :59 [facility] 04/30 21:37 Order name: IV Saline Lock; Complete Time: :59 [facility] 04/30 21:37 Order name: Labs collected and sent; Complete Time: :59 [facility] 04/30 21:37 Order name: O2 Per Protocol; Complete Time: :59 [facility] 04/30 21:37 Order name: O2 Sat Monitoring; Complete Time: :59 [facility] EC:51 Rate is 75 beats/min. Rhythm is regular. QRS [place] is Normal. OR interval is normal. QRS kenton interval is normal. QT interval is normal. No Q waves. T waves are Normal. No ST changes noted. Clinical impression: NSR w/ Non-specific ST/T Changes and No evidence of ischemia. Interpreted by me. Reviewed by me. Administered Medications: 22:58 Drug: NS 0.9% IV 1000 ml IV at 1 bolus Per protocol; 1000 mL bolus Route: IV; Rate: 1 bm8 bolus; Site: left antecubital; 05/01 00:27 Follow up: Response: No adverse reaction; IV Status: Completed infusion; IV Intake: bm8 1000ml 04/30 22:58 Drug: Rocephin IV 1 grams IV at per protocol once; Given slow IV push per pharmacy bm8 instructions Route: IV; Rate: per protocol; Site: left antecubital; 05/01 00:27 Follow up: Response: No adverse reaction; IV Status: Completed infusion; IV Intake: [id number] 04/30 23:38 Not Given (pt had 1 gm ptaa): [id number] mg PO once bm8 23:51 Drug: Zithromax IVPB 500 mg IVPB once over 1 hrs; mix in 250 mL NS Route: IVPB; Infused bm8 Over: 1 hrs; Site: left antecubital; 05/01 00:27 Follow up: Response: No adverse reaction; IV Status: Completed infusion; IV Intake: bm8 250ml 04/30 23:52 Drug: Famotidine IVP 20 mg IVP once; dilute with 10 mL 0.9% NaCl; give over 2 minutes bm8 Route: IVP; Site: left antecubital; 05/01 00:27 Follow up: Response: No adverse reaction bm8 00:45 Drug: Decadron - Dexamethasone IVP 10 mg IVP once Route: IVP; Site: left antecubital; bm8 01:17 Follow up: Response: No adverse reaction bm8 00:45 Drug: Potassium PO Effervescent Tablet 25 mEq PO once; dissolve in 4 ounces of water or bm8 juice Route: PO; 01:17 Follow up: Response: No adverse reaction bm8 00:45 Drug: Levalbuterol Inhalation 1.25 mg Inhalation once Route: Inhalation; bm8 01:17 Follow up: Response: No adverse reaction bm8 00:45 Drug: Ipratropium Inhalation Aerosol 0.5 mg Inhalation once Route: Inhalation; bm8 01:17 Follow up: Response: No adverse reaction bm8 Disposition Summary: 04/30/24 23:58 Hospitalization Ordered Notes: Hospitalization Status: Inpatient Admission kenton Provider: Patricia Courtney cha Location: Telemetry/MedSurg (Inpatient) kenton Condition: Fair kenton Problem: new kenton Symptoms: have improved kenton Bed/Room Type: Standard [facility] Room Assignment: 431(05/01/24 03:07) rv1 Diagnosis - Pneumonia due to SARS-associated coronavirus - bilateral kenton - Fever, unspecified kenton - Altered mental status, unspecified kenton Forms: - Medication Reconciliation Form kenton - SBAR form kenton - Leadership Thank You Letter kenton Signatures: Dispatcher [employer] Todd Rinaldi MD MD cha Villegas, Rebecca rv1 Wilton Carter, RN RN bm8 Corrections: (The following items were deleted from the chart) 04/30 21:58 21:37 Chest Pa And Lat (2 Views)+[email or web address] ordered. [id number] ANDREA 05/01 03:07 04/30 23:58 kenton rv1
--- NOTE | 2024-04-30 23:58 | ER ---
Nurse's Notes [facility] Name: Maura Briggs Age: 84 yrs Sex: Female : 1940 Arrival Date: 04/30/2024 Time: 21:28 Bed 3 Private MD: Diagnosis: Pneumonia due to SARS-associated coronavirus-bilateral;Fever, unspecified;Altered mental status, unspecified Presentation: 04/30 22:00 Chief complaint: Patient's son or daughter states: i went to check on my mom around 8 bm8 and she just was not responding to me. I think she may have gotten sick from the kids going back to school and bringing something home cause she is running fever tonight. Coronavirus screen: Vaccine status: Patient reports receiving the 2nd dose of the covid vaccine. fever. Ebola Screen: Patient negative for fever greater than or equal to 101.5 degrees Fahrenheit, and additional compatible Ebola Virus Disease symptoms Patient denies exposure to infectious person. Patient denies travel to an Ebola-affected area in the 21 days before illness onset. No symptoms or risks identified at this time. Initial Sepsis Screen: Does the patient meet any 2 criteria? No. Patient's initial sepsis screen is negative. Does the patient have a suspected source of infection? No. Patient's initial sepsis screen is negative. Initial Sepsis Screen: Does the patient meet any 2 criteria?. Risk Assessment: Do you want to hurt yourself or someone else? Patient reports no desire to harm self or others. Onset of symptoms was April 30, 2024 at 20:00. Care prior to arrival: Medication(s) given: Tylenol, 1000 mg, \T\2029. 22:00 Method Of Arrival: Wheelchair bm8 22:00 Acuity: MARIA [place] ROSARIO 2 bm8 Triage Assessment: 22:04 General: Appears in no apparent distress. comfortable, Behavior is calm, cooperative, bm8 appropriate for age, drowsy. Pain: Denies pain. EENT: No deficits noted. No signs and/or symptoms were reported regarding the EENT system. Neuro: Level of Consciousness is obeys commands, lethargic, Oriented to person, Weakness. Cardiovascular: Denies chest pain, Heart tones S1 S2 present Capillary refill < 3 seconds Patient's skin is warm and dry. Respiratory: Airway is patent Respiratory effort is even, unlabored, relaxed, Respiratory pattern is regular, symmetrical, Breath sounds are clear bilaterally. GI: No signs and/or symptoms were reported involving the gastrointestinal system. : No signs and/or symptoms were reported regarding the genitourinary system. Derm: Wound noted right foot Wound is diabteric ulcer currently being treated by out patient therapy. Musculoskeletal: Reports weakness in all over. Historical: - Allergies: 22:03 PENICILLINS; bm8 22:03 Sulfa (Sulfonamide Antibiotics); bm8 - Home Meds: 22:03 amlodipine 10 mg tablet 1 tab daily [Active]; atorvastatin 40 mg Oral tablet 1 tab bm8 daily [Active]; furosemide 20 mg Oral tablet 1 tab daily [Active]; gabapentin 100 mg Oral capsule 1 cap 2 times per day [Active]; losartan 50 mg Oral tablet 1 tab daily [Active]; - PMHx: 22:03 Hypercholesterolemia; Hypertensive disorder; bm8 22:03 Diabetes mellitus; PAD; bm8 - PSHx: 22:03 Unable to Obtain; bm8 - Immunization history:: Adult Immunizations up to date. - Infectious Disease History:: Denies. - Social history:: Smoking status: Patient denies any tobacco usage or history of. Screenin:59 [facility] ED Fall Risk Assessment (Adult) History of falling in the last 3 months, bm8 including since admission No falls in past 3 months (0 pts) Confusion or Disorientation Yes (5 pts) Intoxicated or Sedated No (0 pts) Impaired Gait No (0 pts) Mobility Assist Device Used Yes (1 pt) Altered Elimination No (0 pt) Score/Fall Risk Level 3 or more points = High Risk Oriented to surroundings, Maintained a safe environment, Educated pt \T\ family on fall prevention, incl call for assistance when getting out of bed, Assessed \T\ reinforced patient's understanding of fall precautions, Provided non-skid footwear, Hourly rounding (assess needs \T\ fall precautionary measures) done, Used ambulatory aids as needed (educated on \T\ assisted with), Used gait belt as appropriate Implemented a Fall Risk Plan of Care. Abuse screen: Denies threats or abuse. Nutritional screening: No deficits noted. Tuberculosis screening: No symptoms or risk factors identified. Assessment: 22:59 Reassessment: Patient appears in no apparent distress at this time. Patient and/or bm8 family updated on plan of care and expected duration. Pain level reassessed. Patient is alert, oriented x 3, equal unlabored respirations, skin warm/dry/pink. General: Appears in no apparent distress. comfortable, Behavior is calm, cooperative, appropriate for age. Pain: Denies pain. Neuro: Level of Consciousness is alert, obeys commands, Oriented to person, situation. Cardiovascular: Denies chest pain, Heart tones S1 S2 present Capillary refill < 3 seconds in bilateral fingers. Respiratory: Airway is patent Respiratory effort is even, unlabored, Respiratory pattern is regular, symmetrical, Breath sounds are clear bilaterally. GI: No signs and/or symptoms were reported involving the gastrointestinal system. : No signs and/or symptoms were reported regarding the genitourinary system. EENT: No signs and/or symptoms were reported regarding the EENT system. 05/01 01:13 Reassessment: Patient appears in no apparent distress at this time. Patient and/or bm8 family updated on plan of care and expected duration. Pain level reassessed. Patient is alert, oriented x 3, equal unlabored respirations, skin warm/dry/pink. Patient denies pain at this time. Patient states feeling better. Patient states symptoms have improved. General: Appears in no apparent distress. comfortable, Behavior is calm, cooperative, appropriate for age. Pain: Denies pain. Neuro: No deficits noted. Level of Consciousness is awake, alert, obeys commands, Oriented to person, place, time, situation. Respiratory: Airway is patent Respiratory effort is even, unlabored, Respiratory pattern is regular, symmetrical, Breath sounds are clear bilaterally. GI: No signs and/or symptoms were reported involving the gastrointestinal system. Musculoskeletal: No signs and/or symptoms reported regarding the musculoskeletal system. 03:40 Reassessment: No changes from previously documented assessment. pt is resting with eyes bm8 closed breathing is even unlabored at this time. Vital Signs: 04/30 22:00 BP 116 / 58; Pulse 81; Resp 16; Temp 101.4; Pulse Ox 96% on R/A; Pain 0/10; bm8 22:59 BP 100 / 56; Pulse 72; Resp 14; Temp 99.9; Pulse Ox 97% ; Pain 0/10; bm8 05/01 01:13 BP 99 / 61; Pulse 88; Resp 20; Temp 97.8; Pulse Ox 97% ; Pain 0/10; bm8 03:40 BP 96 / 44; Pulse 74; Resp 14; Temp 97.8; Pulse Ox 97% ; Pain 0/10; bm8 04/30 22:00 Pain Scale: Adult bm8 22:59 Pain Scale: Adult bm8 04 01:13 Pain Scale: Adult bm8 03:40 Pain Scale: Adult bm8 [place] Coma Score: 04/30 22:59 Eye Response: spontaneous(4). Motor Response: obeys commands(6). Verbal Response: bm8 oriented(5). Total: 15. 05/01 01:13 Eye Response: spontaneous(4). Motor Response: obeys commands(6). Verbal Response: bm8 oriented(5). Total: 15. 03:40 Eye Response: spontaneous(4). Motor Response: obeys commands(6). Verbal Response: bm8 oriented(5). Total: 15. ED Course: 04/30 21:30 Patient arrived in ED. mr 21:34 Todd Weaver MD is Attending Physician. [facility] 22:00 Wilton Carter, IGNACIO is Primary Nurse. 8 22:03 Triage completed. bm8 22:03 Chest Single View In Process Unspecified. EDMS 22:04 Arm band placed on right wrist. 8 22:30 Initial lab(s) drawn, by az, sent to lab. First set of blood cultures drawn by az. 8 Inserted saline lock: 18 gauge in left antecubital area, using aseptic technique. Blood collected. Flushed with 10 mL NS. Patient maintains SpO2 saturation greater than 95% on room air. 22:45 Second set of blood cultures drawn by az, EKG done, by ED staff, reviewed by Todd Weaver MD COVID swab sent to lab. Flu and/or RSV swab sent to lab. 22:59 Patient has correct armband on for positive identification. Placed in gown. Bed in low bm8 position. Side rails up X2. Adult w/ patient. Client placed on continuous cardiac and pulse oximetry monitoring. NIBP monitoring applied. potline monitor on. Pulse ox on. NIBP on. Door closed. Noise minimized. Pillow given. Verbal reassurance given. Head of bed elevated. 22:59 No provider procedures requiring assistance completed. bm8 23:57 Patricia Courtney MD is Hospitalizing Provider. [facility] 05/01 01:13 Provided Education on: need for admit. bm8 01:13 Patient admitted, IV remains in place. bm8 Administered Medications: 04/30 22:58 Drug: NS 0.9% IV 1000 ml IV at 1 bolus Per protocol; 1000 mL bolus Route: IV; Rate: 1 bm8 bolus; Site: left antecubital; 05/01 00:27 Follow up: Response: No adverse reaction; IV Status: Completed infusion; IV Intake: bm8 1000ml 04/30 22:58 Drug: Rocephin IV 1 grams IV at per protocol once; Given slow IV push per pharmacy bm8 instructions Route: IV; Rate: per protocol; Site: left antecubital; 05/01 00:27 Follow up: Response: No adverse reaction; IV Status: Completed infusion; IV Intake: [id number] 04/30 23:38 Not Given (pt had 1 gm ptaa): [id number] mg PO once bm8 23:51 Drug: Zithromax IVPB 500 mg IVPB once over 1 hrs; mix in 250 mL NS Route: IVPB; Infused bm8 Over: 1 hrs; Site: left antecubital; 05/01 00:27 Follow up: Response: No adverse reaction; IV Status: Completed infusion; IV Intake: bm8 250ml 04/30 23:52 Drug: Famotidine IVP 20 mg IVP once; dilute with 10 mL 0.9% NaCl; give over 2 minutes bm8 Route: IVP; Site: left antecubital; 05/01 00:27 Follow up: Response: No adverse reaction bm8 00:45 Drug: Decadron - Dexamethasone IVP 10 mg IVP once Route: IVP; Site: left antecubital; bm8 01:17 Follow up: Response: No adverse reaction bm8 00:45 Drug: Potassium PO Effervescent Tablet 25 mEq PO once; dissolve in 4 ounces of water or bm8 juice Route: PO; 01:17 Follow up: Response: No adverse reaction bm8 00:45 Drug: Levalbuterol Inhalation 1.25 mg Inhalation once Route: Inhalation; bm8 01:17 Follow up: Response: No adverse reaction bm8 00:45 Drug: Ipratropium Inhalation Aerosol 0.5 mg Inhalation once Route: Inhalation; bm8 01:17 Follow up: Response: No adverse reaction bm8 Medication: 04/30 22:59 VIS not applicable for this client. bm8 Intake: 05/01 00:27 IV: 250ml; Total: 250ml. bm8 00:27 IV: 10ml; Total: 260ml. bm8 00:27 IV: 1000ml; Total: 1260ml. bm8 Outcome: 04/30 23:58 Decision to Hospitalize by Provider. [facility] 05/01 03:42 Admitted to Tele accompanied by nurse, via stretcher, room 431, bm8 Condition: stable Instructed on follow up and referral plans. the need for admit, Demonstrated understanding of instructions, follow-up care, medications, 04:23 Patient left the ED. bm8 Signatures: Dispatcher [employer] EDTodd Gray MD MD cha Rivera Karley, [facility] Wilton Mcfarlane, RN RN bm8
[2024-05-01 00:18] LABS: Band Neutrophils 16 % (0-1); Differential Total Cells Count 100; Lymphocytes 8 % (15-42); Metamyelocytes 2 % (0-0); Monocytes 4 % (0-10); Segmented Neutrophils 69 % (40-80)
[2024-05-01] MEDS ORDERED: IPRATROPIUM BROM 0.5MG/2.5ML ONE (00:18)
[2024-05-01] MEDS ORDERED: LEVALBUTEROL 1.25 MG/3 ML NEB ONE (00:18)
[2024-05-01 00:19] LABS: Blood Morphology Comment NOTED (NOT SEEN); Ovalocytes 1+; Platelet Estimate ADEQ
[2024-05-01] MEDS ORDERED: dexAMETHasone 10 MG/ML VIAL ONE (00:19)
[2024-05-01] MEDS ORDERED: POTASSIUM 25 MEQ EFFERV TAB ONE (00:19)
--- NOTE | 2024-05-01 02:51 | P.HP ---
Certification for Inpatient With expected LOS: >2 Midnights Practitioner: I am a practitioner with admitting privileges, knowledge of patient current condition, hospital course, and medical plan of care. Services: Services provided to patient in accordance with Admission requirements found in Title 42 Section 412.3 of the Code of Federal Regulations Patient History Date of Service: 05/01/24 Reason for admission: not feeling well History of Present Illness: 84-year-old female with history of hypertension, hyperlipidemia, diabetes, peripheral vascular disease presents to the ER with a 1 week history of of cough, shortness of breath. She reports symptoms have been progressive. In the ER she tested positive for COVID. Imaging suggestive of pneumonia. The patient was febrile. Since being in the emergency room she reports that she is feeling better. She has not requiring oxygen. Family does report earlier in the day she did have some confusion. This has resolved. Allergies penicillin G Allergy (Unknown, Verified 05/19/15 10:03) Hives Sulfa (Sulfonamide Antibiotics) Allergy (Unknown, Verified 05/19/15 10:03) Hives Penicillins Allergy (Verified 05/19/15 10:03) Shortness of breath Home Medications: Amlodipine [Norvasc*] 1 tab PO DAILY 12/13/22 Atorvastatin Calcium 1 tab PO BEDTIME 12/13/22 Gabapentin [Neurontin*] 1 tab PO BID 12/13/22 Losartan Potassium 1 tab PO DAILY 12/13/22 levoFLOXacin [Levaquin*] 750 mg PO Q48H #3 tab 12/15/22 - Past Medical/Surgical History Diabetic: Yes -: Diabetic 32 years -: [place] -: GERD -: HLD -: HTN -: Gallbladder surgery - Social History Alcohol use: No CD- Drugs: No Caffeine use: Yes Review of Systems 10-point ROS is otherwise unremarkable General: Fever, Weakness, Malaise ENT: Unremarkable Respiratory: Cough, Shortness of Breath Cardiovascular: Unremarkable Gastrointestinal: Unremarkable Genitourinary: Unremarkable Physical Examination - Physical Exam General: Alert, Other (hard of hearing ) HEENT: Atraumatic, Normocephalic Neck: Supple Respiratory: Clear to auscultation bilaterally, Normal air movement Cardiovascular: Regular rate/rhythm, Normal S1 S2 Musculoskeletal: Other Integumentary: Other - Studies Laboratory Data (last 24 hrs) 04/30/24 04/30/24 04/30/24 22:45 22:45 22:45 WBC 4.20 L Hgb 10.1 L Hct 28.1 L Plt Count 145 L PT 13.8 H INR 1.24 Sodium 133 L Potassium 3.4 L BUN 28 H Creatinine 1.19 H Glucose 172 H Magnesium 1.9 Total Bilirubin 0.4 AST 24 ALT 33 Alkaline Phosphatase 101 Microbiology Data (last 24 hrs): 04/30/24 22:45 Nasopharnyx Influenza Type A Antigen Screen - Final 04/30/24 22:45 Nasopharnyx Influenza Type B Antigen Screen - Final Assessment and Plan - Plan 84-year-old female presents with 1 week history of progressive cough and shortness of breath. She was found to have pneumonia. Tested positive for COVID. COVID-19 positive Dyspnea Pneumonia Fevers Hypokalemia History of diabetes History of hypertension History of peripheral vascular disease Plan: Admit to [facility] Will start on antibiotics for community-acquired pneumonia Monitor O2 requirements Onset of symptoms 1 week ago Not requiring oxygen Fingerstick blood sugars, sliding scale insulin Await home medication reconciliation Replace potassium DVT: SCDs Code: Full - Advance Directives Does patient have a Living Will: No Does patient have a Durable POA for Healthcare: No
[2024-05-01] MEDS ORDERED: ACETAMINOPHEN 325 MG TABLET PO PRN (02:52)
[2024-05-01] MEDS ORDERED: ALBUTEROL 2.5 MG/3 ML NEB SOL NEB PRN ×2 (02:52→18:34)
[2024-05-01] MEDS ORDERED: GLUCAGON 1 MG/VIAL IM PRN (03:11)
[2024-05-01] MEDS ORDERED: D10W 125 ML IV PRN (03:11)
[2024-05-01 05:32] VITALS: BMI 23.4
[2024-05-01] MEDS: INSULIN REGULAR (HUMAN) 100 UNIT/ML SQ SCH (08:58)
[2024-05-01] MEDS: ENOXAPARIN 30 MG/0.3 ML SQ SCH (08:58)
[2024-05-01] MEDS: dexAMETHasone 10 MG/ML VIAL IV SCH (08:58)
[2024-05-01] MEDS: AZITHROMYCIN 250 MG TAB PO SCH (08:58)
[2024-05-01] MEDS ORDERED: ENOXAPARIN 40 MG/0.4 ML SQ SCH (09:00)
[2024-05-01] MEDS: POTASSIUM 25 MEQ EFFERV TAB PO ONE (12:01)
--- NOTE | 2024-05-01 12:01 | P.CNS ---
Date of Consult: 05/01/24 Reason for Consult: Coronavirus pneumonia Chief Complaint: Coronavirus pneumonia History of Present Illness: Patient is 84 years of age nonverbal history of metabolic syndrome peripheral vascular disease has been sick for the past week complaining of cough and shortness of breath which is progressive tested positive for COVID currently patient is alert responsive nonverbal chest x-ray suggestive of coronavirus pneumonia she is doing much better Allergies penicillin G Allergy (Unknown, Verified 05/19/15 10:03) Hives Sulfa (Sulfonamide Antibiotics) Allergy (Unknown, Verified 05/19/15 10:03) Hives Penicillins Allergy (Verified 05/19/15 10:03) Shortness of breath Home Medications: Amlodipine [Norvasc*] 1 tab PO DAILY 12/13/22 Atorvastatin Calcium 1 tab PO BEDTIME 12/13/22 Gabapentin [Neurontin*] 1 tab PO BID 12/13/22 Losartan Potassium 1 tab PO DAILY 12/13/22 levoFLOXacin [Levaquin*] 750 mg PO Q48H #3 tab 12/15/22 - Past Medical/Surgical History Diabetic: Yes -: Diabetic 32 years -: [place] -: GERD -: HLD -: HTN -: Gallbladder surgery - Social History Smoking Status: Never smoker Alcohol use: No CD- Drugs: No Caffeine use: Yes Review of Systems is unable to be obtained Physical Examination Temp Pulse Resp BP Pulse Ox 97.0 F 75 16 132/61 99 05/01/24 08:00 05/01/24 08:00 05/01/24 08:00 05/01/24 08:00 05/01/24 08:00 General: Alert, Cooperative Respiratory: Clear to auscultation bilaterally Cardiovascular: No edema, Normal pulses Laboratory Data (last 24 hrs) 04/30/24 04/30/24 04/30/24 22:45 22:45 22:45 WBC 4.20 L Hgb 10.1 L Hct 28.1 L Plt Count 145 L PT 13.8 H INR 1.24 Sodium 133 L Potassium 3.4 L BUN 28 H Creatinine 1.19 H Glucose 172 H Magnesium 1.9 Total Bilirubin 0.4 AST 24 ALT 33 Alkaline Phosphatase 101 - Problems (1) Pneumonia due to coronavirus disease 2019 Current Visit: Yes Status: Acute Plan: Patient is 84 years of age admitted with fever cough shortness of breath for the past week positive for coronavirus 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
--- NOTE | 2024-05-01 12:07 | EKG ---
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
[2024-05-01] MEDS: CEFTRIAXONE 1,000 MG in NA CHLORIDE 0.9% 50 ML IVPB SCH (17:24)
--- NOTE | 2024-05-01 18:18 | P.PN ---
Date of Service: 05/01/24 Patient seen and examined. Family report patient has increased weakness. She is tolerating room air. Diagnosis COVID-19 pneumonia Suspected pulmonary edema. Generalized weakness. Plan: Pulmonary input appreciated. Continue antibiotics Steriod. Assess room oxygen saturation with ambulation.
[2024-05-01] MEDS: ATORVASTATIN 40 MG TAB PO SCH (20:58)
[2024-05-01] MEDS: GABAPENTIN 100 MG CAP PO SCH (20:58)
[2024-05-02 06:56] LABS: Absolute Lymphocytes (CBC) 0.4 K/uL (0.7-4.9); Absolute Monocytes 0.5 K/uL (0.1-1.3); Absolute Neutrophil 6.9 K/uL (1.8-8.0); Basophils % 0.1 % (0-1.3); Hematocrit 26.7 % (36.0-45.0); Hemoglobin 9.8 g/dL (12.0-15.0); Lymphocytes % 5.1 % (15.3-44.8); MCH 31.5 pg (27.0-35.0); MCHC 36.7 g/dL (32.0-36.0); MCV 85.6 fL (80-100); Monocytes % 5.9 % (3.3-12.3); Neutrophils % 88.9 % (41.7-73.7); Nucleated Red Blood Cells % 0.3 % (0-0); Platelets 157 thou/uL (152-406); RBC Red Blood Cell Count 3.11 M/uL (3.86-4.86); Red Cell Distribution Width 13.2 % (12.1-15.2)
[2024-05-02 07:15] LABS: Albumin 2.6 g/dL (3.4-5.0); Albumin/Globulin Ratio 0.7 (1.1-1.8); Anion Gap 9.6 mEq/L (5.0-15.0); Bilirubin Total 0.4 mg/dL (0.2-1.0); Potassium 3.6 mEq/L (3.5-5.1); Protein, Total 6.6 g/dL (6.4-8.2)
[2024-05-02] MEDS: AMLODIPINE 5 MG TAB PO SCH (08:41)
[2024-05-02] MEDS: POTASSIUM 25 MEQ EFFERV TAB PO ONE (08:41)
[2024-05-02 08:42] VITALS: BP 145/76
[2024-05-02] MEDS: LOSARTAN POTASSIUM 50 MG TABLET PO SCH (08:42)
[2024-05-02 08:59] VITALS: TEMP 96.9
[2024-05-02 09:54] VITALS: O2SAT 97
--- NOTE | 2024-05-02 10:13 | P.DS ---
Admission Date: 05/01/24 Discharge Date: 05/02/24 Disposition: ROUTINE DISCHARGE Discharge Condition: FAIR Reason for Admission: Coronavirus pneumonia Brief History of Present Illness: 84-year-old female with history of hypertension, hyperlipidemia, diabetes, peripheral vascular disease presents to the ER with a 1 week history of of cough, shortness of breath. In the ER she tested positive for COVID. Imaging suggested pneumonia. The patient was febrile on presentation. Since being in the emergency room she reports that she is feeling better. She was not requiring oxygen in the ED. Patient was admitted for further management. Hospital Course: Diagnosis: COVID-19 pneumonia Essential hypertension Generalized weakness Patient was admitted to the medical floor and treated for COVID-pneumonia with IV steroids, scheduled bronchodilators and empiric antibiotics-IV Rocephin and Zithromax. She was seen in consultation by pulmonary Dr. Cortez who assisted with management. Patient had good oxygen saturation on room air. Patient seen and evaluated today. She denies any symptoms, she denies any shortness of breath. Patient has been afebrile since admission. Overall she has clinically improved, vitals are stable. Patient is deemed stable for discharge. She is discharged with Medrol pack, Zithromax and vitamin supplementation. Vital Signs/Physical Exam: Temp Pulse Resp BP Pulse Ox 96.9 F 79 11 L 145/76 H 97 05/02/24 08:00 05/02/24 08:41 05/02/24 08:00 05/02/24 08:41 05/02/24 08:00 General: Alert, In no apparent distress, Oriented x3 HEENT: Mucous membr. moist/pink Neck: Supple, JVD not distended Respiratory: Clear to auscultation bilaterally, Normal air movement Cardiovascular: No edema, Regular rate/rhythm, Normal S1 S2 Gastrointestinal: Normal bowel sounds, Soft and benign, Non-distended, No tenderness Musculoskeletal: No swelling Integumentary: No rashes, No cyanosis Neurological: Normal speech, Normal strength at 5/5 x4 extr, Cranial nerves 3-12 intact Laboratory Data at Discharge: WBC 7.80 thou/uL (4.3-10.9) 05/02/24 06:30 Hgb 9.8 g/dL (12.0-15.0) L 05/02/24 06:30 Hct 26.7 % (36.0-45.0) L 05/02/24 06:30 Plt Count 157 thou/uL (152-406) 05/02/24 06:30 PT 13.8 SECONDS (9.4-12.5) H 04/30/24 22:45 INR 1.24 04/30/24 22:45 Sodium 136 mEq/L (136-145) 05/02/24 06:30 Potassium 3.6 mEq/L (3.5-5.1) 05/02/24 06:30 BUN 19 mg/dL (7-18) H 05/02/24 06:30 Creatinine 0.88 mg/dL (0.55-1.02) 05/02/24 06:30 Glucose 136 mg/dL (74-106) H 05/02/24 06:30 Magnesium 1.9 mg/dL (1.6-2.4) 04/30/24 22:45 Total Bilirubin 0.4 mg/dL (0.2-1.0) 05/02/24 06:30 AST 18 U/L (15-37) 05/02/24 06:30 ALT 28 U/L (13-56) 05/02/24 06:30 Alkaline Phosphatase 80 U/L (45-117) 05/02/24 06:30 Home Medications: Amlodipine [Norvasc*] 1 tab PO DAILY 12/13/22 Atorvastatin Calcium 1 tab PO BEDTIME 12/13/22 Gabapentin [Neurontin*] 1 tab PO BID 12/13/22 Losartan Potassium 1 tab PO DAILY 12/13/22 Ascorbic Acid [Vitamin C] 1,000 mg PO BID #60 tab 05/02/24 Azithromycin Tab [Zithromax*] 250 mg PO DAILY #4 tab 05/02/24 Methylprednisolone [Medrol dosepack] 4 mg PO DIRECTED #1 mars 05/02/24 Zinc Sulfate [Zinc Sulfate*] 220 mg PO DAILY #30 cap 05/02/24 New Medications: Methylprednisolone [Medrol dosepack] 4 mg PO DIRECTED #1 mars Ascorbic Acid [Vitamin C] 1,000 mg PO BID #60 tab Zinc Sulfate [Zinc Sulfate*] 220 mg PO DAILY #30 cap Azithromycin Tab [Zithromax*] 250 mg PO DAILY #4 tab Diet: AHA Activity: Fall precautions Followup: Su Valenzuela [Primary Care Provider] - 1-2 Weeks Time spent managing pt's care (in minutes): 32
== END 2024-05-02 11:09 | disposition home health service (06) | DRG 177 ==
LOC: ER 21:28 → 4TH 05-01 02:52
PROVIDERS: ADMIT Internal Medicine; ATTEND Internal Medicine
DX: U07.1 COVID-19 (principal); J12.82 Pneumonia due to coronavirus disease 2019; E87.1 Hypo-osmolality and hyponatremia; E87.6 Hypokalemia; I10 Essential (primary) hypertension; E78.00 Pure hypercholesterolemia, unspecified; K21.9 Gastro-esophageal reflux disease without esophagitis; E11.51 Type 2 diabetes mellitus with diabetic peripheral angiopathy without gangrene; Z88.0 Allergy status to penicillin; Z88.2 Allergy status to sulfonamides; Z79.899 Other long term (current) drug therapy
CPT/HCPCS: 36415; 71045; 80048; 80053; 80076; 82947; 83605; 83735; 83880; 84484; 85025; 85610; 87040; 87804; 87811; 93005; 94760; 96365; 96375; 99285; J0696; J1100; J1650; J7030; J7050; J7614; J7644

== ENCOUNTER 2024-11-26 16:51 | Emergency (ER) | payer OTHER ==
[2024-11-26 21:08] LABS: Absolute Eosinophils 0.1 K/uL (0-0.5); Absolute Monocytes 0.6 K/uL (0.1-1.3); Absolute Neutrophil 5.6 K/uL (1.8-8.0); Basophils % 0.3 % (0-1.3); Eosinophils % 1.6 % (0-4.4); Hematocrit 32.8 % (36.0-45.0); Hemoglobin 11.6 g/dL (12.0-15.0); Lymphocytes % 13.1 % (15.3-44.8); MCHC 35.3 g/dL (32.0-36.0); Nucleated Red Blood Cells % 0.1 % (0-0); Platelets 182 thou/uL (152-406); RBC Red Blood Cell Count 3.85 M/uL (3.86-4.86); Red Cell Distribution Width 15.5 % (12.1-15.2)
[2024-11-26 21:25] LABS: Albumin/Globulin Ratio 0.9 (1.1-1.8); Anion Gap 9.8 mEq/L (5.0-15.0); Bilirubin Total 0.4 mg/dL (0.2-1.0); Globulin 4.3 g/dL (2.3-3.5); Potassium 3.8 mEq/L (3.5-5.1); Protein, Total 8.3 g/dL (6.4-8.2)
[2024-11-26 21:54] LABS: Specific Gravity 1.009 (1.005-1.030); Sqamous Epithelial <5 /HPF (None Seen); Urine Bacteria <20 /HPF (<20); Urine Bilirubin NEGATIVE (Negative); Urine Blood 1+ (Negative); Urine Clarity Extremely Turbid (Clear); Urine Color Light-Yellow (Yellow); Urine Crystals Unidentified Few /HPF (None Seen); Urine Culture Reflex Order REFLEXED; Urine Glucose 3+ (Negative); Urine Ketones NEGATIVE (Negative); Urine Microscopic Reflex YN ORDER UMIC; Urine Mucus Slight /HPF (None Seen); Urine Nitrite NEGATIVE (Negative); Urine Protein TRACE (Negative); Urine Urobilinogen Normal (Normal); Urine WBC >50 /HPF (<5); Urine WBC Clump Occasional /HPF (None Seen); Urine Yeast (Budding) Moderate /HPF (None Seen)
--- NOTE | 2024-11-26 22:32 | RAD REPORT ---
EXAMINATION: Abdomen Pelvis W Contrast CLINICAL INDICATION: Female, 84 years old.ABD PAIN TECHNIQUE: CT abdomen and pelvis was performed, after the administration of IV contrast[facility]. Axial, sagittal and coronal reconstructions were obtained. One or more of the following dose reduction techniques were used: Automated exposure control, adjustment of the mA and/o r kV according to patient size, and/or iterative reconstruction. Unless otherwise specified, incidental findings do not require dedicated imaging follow-up. [id number]. COMPARISON: No prior exam. FINDINGS: LOWER CHEST: Nonspecific ground glass opacities in lung basesMild cardiomegaly. Severe coronary arter y calcifications.Mild circumferential thickening of the distal esophagus which could reflect esophagitis. UPPER GI: No significant abnormality. LIVER: No significant focal abnormality. GALLBLADDER/BILE DUCTS: Cholecystectomy. Moderate intra and extrahepatic biliary ductal dilatation. T his could be secondary to the post-cholecystectomy state. Recommend correlation with LFT's. If abnormal, consider MRCP for further evaluation. ?This is similar to 12/12/2022. PANCREAS: Atrophy but no acute findings. SPLEEN: Unremarkable. ADRENALS: No adrenal masses. KIDNEYS AND URETERS: No hydronephrosis.Low density and/or too small to characterize renal lesions whi ch are statistically benign.Nonobstructing renal calculi.Atrophic left kidney. ABDOMINAL AORTA AND OTHER VESSELS: Mild atherosclerotic changes. PERITONEUM: No abnormal free fluid. No free air. LYMPH NODES: No pathologic lymphadenopathy. ABDOMINAL WALL: Small fat containing umbilical hernia. SMALL BOWEL/COLON: Small bowel has normal course and caliber. No colonic wall thickening or pericolon ic inflammatory changes.Nonvisualized appendix but no secondary signs of acute appendicitis. Moderate diverticulosis without diverticulitis. Moderate formed stool burden. URINARY BLADDER: Thick-walled but decompressed and not well evaluated. Sal catheter present. REPRODUCTIVE ORGANS: Uterus surgically absent. No adnexal abnormality. MUSCULOSKELETAL: Remote appearing T11 and T12 compression fractures. Mild increase endplate irregular ity at L4-5. Possible soft tissue mass associated with the disc. ADDITIONAL FINDINGS: None. IMPRESSION: No acute findings within the abdomen or pelvis. Nonspecific circumferential bladder wall thickening t briana the bladder is decompressed by Sal catheter. Soft tissue associated with the disc and with new endplate irregularity at L4-5 of uncertain etiology . It could represent a mass. This would not be expected for discitis osteomyelitis. Consider MRI of the lumbar spine with and without contrast to better evaluate. Other findings as noted above.
[2024-11-26] MEDS ORDERED: NA CHLORIDE 0.9% 100 ML ONE (22:40)
[2024-11-26] MEDS ORDERED: CEFTRIAXONE 1000 MG/VIAL ONE (22:40)
--- NOTE | 2024-11-26 22:54 | EDPHYS ---
Physician Documentation [facility] Name: Maura Briggs Age: 84 yrs Sex: Female : 1940 Arrival Date: 11/26/2024 Time: 16:51 Bed 6 Private MD: ED Physician Todd Weaver HPI: 11/26 17:57 This 84 yrs old Female presents to ER via Unassigned with complaints of kb Abdominal Pain. 17:57 Pt is an 84 year old female who presents for abd pain that started earlier today. kb Reports nausea earlier today but has resolved. Denies vomiting, diarrhea, fever. . Historical: - Allergies: 18:00 PENICILLINS; cm10 18:00 Sulfa (Sulfonamide Antibiotics); cm10 - PMHx: 18:00 diabetes mellitus; Hypercholesterolemia; Hypertensive disorder; PAD; cm10 - PSHx: 18:00 Appendectomy; Cholecystectomy; cm10 - Immunization history:: Adult Immunizations up to date. - Infectious Disease History:: Denies. - Social history:: Smoking status: Patient denies any tobacco usage or history of. ROS: 17:56 Constitutional: As per HPI kb Exam: 17:56 Constitutional: This is a well developed, well nourished patient who is awake, alert, kb and in no acute distress. Head/Face: Normocephalic, atraumatic. ENT: Moist Mucous membranes Cardiovascular: Regular rate Respiratory: Respirations even and unlabored. No increased work of breathing. Talking in full sentences Skin: Warm, dry with normal turgor. Normal color. MS/ Extremity: Pulses equal, no cyanosis. Neurovascular intact. Full, normal range of motion. Neuro: Awake and alert, GCS 15, oriented to person, place, time, and situation. 17:56 Abdomen/GI: Inspection: abdomen appears normal, Bowel sounds: normal, Palpation: soft, in all quadrants, moderate abdominal tenderness, in all quadrants, Vital Signs: 17:59 BP 162 / 69; Pulse 84; Resp 15; Temp 98(O); Pulse Ox 100% on R/A; Weight 49.9 kg; cm10 Height 4 ft. 11 in. ; Pain 10/10; 21:07 BP 150 / 70; Pulse 87; Resp 16; Pulse Ox 98% on R/A; dd2 21:10 BP 140 / 96; Pulse 76; Resp 16; Temp 98.2(O); Pulse Ox 99% on R/A; dd2 23:33 BP 134 / 84; Pulse 79; Resp 17; Pulse Ox 98% on R/A; dd2 17:59 Body Mass Index 22.22 (49.90 kg, 149.86 cm) cm10 17:59 Pain Scale: Adult cm10 [place] Coma Score: 21:07 Eye Response: spontaneous(4). Motor Response: obeys commands(6). Verbal Response: dd2 oriented(5). Total: 15. MDM: 17:17 Medical Screening Exam initiated kb 17:57 Data reviewed: vital signs, nurses notes. Historians other than the Patient: kb Daughter/Son: daughter. 21:06 Transition of care: After a detail discussion of the patient's case, care is kb transferred to Gautam Campbell [facility]. 11/26 17:56 Order name: CBC with Diff; Complete Time: 21:53 cm10 11/26 17:56 Order name: CMP; Complete Time: 21:35 cm10 11/26 17:56 Order name: Lipase; Complete Time: 21:35 cm10 11/26 17:56 Order name: Urinalysis w/ reflexes; Complete Time: 22:02 cm10 11/26 21:57 Order name: Urine Culture EDAR 11/26 17:56 Order name: CT Abd/Pelvis - IV Contrast Only; Complete Time: 22:36 cm10 11/26 17:56 Order name: IV Saline Lock; Complete Time: 22:10 cm10 11/26 17:56 Order name: Labs collected and sent; Complete Time: 21:02 cm10 11/26 20:57 Order name: Mendez: please exchange mendez; Complete Time: 21:46 kb Administered Medications: 22:38 Not Given (Patient Refused): morphineor iv 2 mg IVP once over 4 mins dd2 22:38 Not Given (Patient Refused): ondansetron 4 mg IVP once; over 2 minutes dd2 22:41 Drug: Rocephin IV 1 grams IV at per protocol once; Given slow IV push per pharmacy vc1 instructions Route: IV; Rate: per protocol; Site: right antecubital; 23:11 Follow up: Response: No adverse reaction; IV Status: Completed infusion; IV Intake: dd2 100ml 22:46 Not Given (Physician Discretion): ns 0.9% 500 ml IV at bolus once; to be given as a dd2 bolus over 30 minutes Disposition Summary: 11/26/24 22:53 Discharge Ordered Notes: Location: Home dr5 Condition: Stable dr5 Diagnosis - UTI/ Urinary tract infection, site not specified dr5 - Other mechanical complication of urinary (indwelling) catheter dr5 Followup: dr5 - With: Emergency Department - When: 1 - 2 days - Reason: Recheck today's complaints, Continuance of care, Re-evaluation by your physician Followup: dr5 - With: Private Physician - When: 1 - 2 days - Reason: Recheck today's complaints, Continuance of care, Re-evaluation by your physician Discharge Instructions: - Discharge Summary Sheet dr5 - Indwelling Urinary Catheter Care, Adult dr5 - Urinary Tract Infection, Adult, [id number] dr5 Forms: - Medication Reconciliation Form dr5 - Patient Portal Instructions dr5 - Leadership Thank You Letter dr5 Prescriptions: - cefpodoxime 200 mg Oral tablet - take 1 tablet ORAL route every 12 hours for 10 days with food; 20 tablet; dr5 Refills: 0, Product Selection Permitted Signatures: Dispatcher [employer] EDAR Lorraine Salazar, CHEN-C DIST[employer]BUTION [employer] SUPERVISOR-Gabbie Harmon RN RN vc1 Cheri Mahajan RN RN cm10 Gautam Campbell FNP-C CHEN-[id number] NANI MONTES RN dd2
--- NOTE | 2024-11-26 22:54 | ER ---
Nurse's Notes [facility] Name: Maura Briggs Age: 84 yrs Sex: Female : 1940 Arrival Date: 11/26/2024 Time: 16:51 Bed 6 Private MD: Diagnosis: UTI/ Urinary tract infection, site not specified;Other mechanical complication of urinary (indwelling) catheter Presentation: 11/26 17:59 Chief complaint: Patient's son or daughter states: lower abdominal pain onset this cm10 morning. Pt reports nausea. Pt has chronic patel catheter. Pt noted to be tender to the touch. 17:59 Coronavirus screen: Client denies travel out of the [place] in the last 14 days. Ebola cm10 Screen: Patient denies travel to an Ebola-affected area in the 21 days before illness onset. Initial Sepsis Screen: Does the patient meet any 2 criteria? No. Patient's initial sepsis screen is negative. Does the patient have a suspected source of infection? No. Patient's initial sepsis screen is negative. Risk Assessment: Do you want to hurt yourself or someone else? Patient reports no desire to harm self or others. Onset of symptoms was November 26, 2024. 17:59 Method Of Arrival: Wheelchair cm10 17:59 Acuity: [place] 3 cm10 Triage Assessment: 18:00 General: Appears uncomfortable, Behavior is calm, cooperative. Neuro: No deficits cm10 noted. Level of Consciousness is awake, alert, obeys commands, Oriented to person, place, time, situation, Appropriate for age. Respiratory: No deficits noted. Airway is patent Respiratory effort is even, unlabored, Respiratory pattern is regular, symmetrical. Historical: - Allergies: 18:00 PENICILLINS; cm10 18:00 Sulfa (Sulfonamide Antibiotics); cm10 - PMHx: 18:00 diabetes mellitus; Hypercholesterolemia; Hypertensive disorder; PAD; cm10 - PSHx: 18:00 Appendectomy; Cholecystectomy; cm10 - Immunization history:: Adult Immunizations up to date. - Infectious Disease History:: Denies. - Social history:: Smoking status: Patient denies any tobacco usage or history of. Screenin:07 [facility] ED Fall Risk Assessment (Adult) History of falling in the last 3 months, dd2 including since admission No falls in past 3 months (0 pts) Confusion or Disorientation No (0 pts) Intoxicated or Sedated No (0 pts) Impaired Gait No (0 pts) Mobility Assist Device Used Yes (1 pt) Altered Elimination Yes (1 pt) Score/Fall Risk Level 0 - 2 = Low Risk Oriented to surroundings, Maintained a safe environment, Educated pt \T\ family on fall prevention, incl call for assistance when getting out of bed, Assessed \T\ reinforced patient's understanding of fall precautions, Hourly rounding (assess needs \T\ fall precautionary measures) done. Abuse screen: Denies threats or abuse. Denies injuries from another. Nutritional screening: No deficits noted. Tuberculosis screening: No symptoms or risk factors identified. Assessment: 21:10 General: Appears in no apparent distress. uncomfortable, Behavior is calm, cooperative, dd2 appropriate for age. Pain: Complains of pain in suprapubic area, right lower quadrant and left lower quadrant Pain does not radiate. Pain currently is 7 out of 10 on a pain scale. Quality of pain is described as crampy. Neuro: Carranza Agitation-Sedation Scale (RASS): 0 - Alert and Calm Level of Consciousness is awake, alert, obeys commands, Oriented to person, place, time, situation, Appropriate for age. Cardiovascular: Heart tones S1 S2 present Patient's skin is warm and dry. Respiratory: Airway is patent Respiratory effort is even, unlabored, Respiratory pattern is regular, symmetrical, Breath sounds are clear bilaterally. GI: Abdomen is distended, Bowel sounds present X 4 quads. Abdomen is tender to palpation in suprapubic area, right lower quadrant and left lower quadrant Reports nausea. : 17 F PARTIALLY INFLATED CATHETER BALLOON EXTERNALLY VISIBLE Bladder is distended Reports inability to void, since THIS AM. PT HAS PATEL, PARTIAL INFLATED BALLOON EXTERNALLY VISIBLE. EENT: Reports RAMONA WEARS [place]ISON HEARING AIDS. Derm: No deficits noted. No signs and/or symptoms reported regarding the dermatologic system. Musculoskeletal: No deficits noted. No signs and/or symptoms reported regarding the musculoskeletal system. Circulation, motion, and sensation intact. Range of motion: intact in all extremities. Vital Signs: 17:59 BP 162 / 69; Pulse 84; Resp 15; Temp 98(O); Pulse Ox 100% on R/A; Weight 49.9 kg; cm10 Height 4 ft. 11 in. ; Pain 10/10; 21:07 BP 150 / 70; Pulse 87; Resp 16; Pulse Ox 98% on R/A; dd2 21:10 BP 140 / 96; Pulse 76; Resp 16; Temp 98.2(O); Pulse Ox 99% on R/A; dd2 23:33 BP 134 / 84; Pulse 79; Resp 17; Pulse Ox 98% on R/A; dd2 17:59 Body Mass Index 22.22 (49.90 kg, 149.86 cm) cm10 17:59 Pain Scale: Adult cm10 [place] Coma Score: 21:07 Eye Response: spontaneous(4). Motor Response: obeys commands(6). Verbal Response: dd2 oriented(5). Total: 15. ED Course: 16:53 Patient arrived in ED. im 17:16 Lorraine Salazar FNP-C is PHCP. kb 17:16 Todd Weaver MD is Attending Physician. kb 17:58 Radiology exam delayed due to lab results not completed at this time. (BUN/Creatinine) sj IV insertion attempt and/or patient not having appropriate IV at this time. 18:00 Triage completed. cm10 18:00 Arm band placed on right wrist. Patient placed in waiting room. cm10 19:07 Radiology exam delayed due to lab results not completed at this time. (BUN/Creatinine) nj IV insertion attempt and/or patient not having appropriate IV at this time. 20:20 Radiology exam delayed due to lab results not completed at this time. (BUN/Creatinine) nj IV insertion attempt and/or patient not having appropriate IV at this time. 21:02 CBC with Diff Sent. vc1 21:02 CMP Sent. vc1 21:02 Lipase Sent. vc1 21:06 PHCP role handed off by Lorraine Salazar FNP-C kb 21:06 Gautam Campbell FNP-C is PHCP. kb 21:07 NANI MONTES, RN is Primary Nurse. dd2 21:07 Patient has correct armband on for positive identification. Bed in low position. Call dd2 light in reach. Side rails up X2. Client placed on continuous cardiac and pulse oximetry monitoring. NIBP monitoring applied. Door closed. Noise minimized. Warm blanket given. Pillow given. Verbal reassurance given. 21:07 No provider procedures requiring assistance completed. Initial lab(s) drawn, by me, dd2 sent to lab. Missed attempt(s): 22 gauge in right antecubital area. Patient maintains SpO2 saturation greater than 95% on room air. 21:46 Urinalysis w/ reflexes Sent. dd2 21:47 Patel cath inserted, using sterile technique, 16 Fr., by me, balloon inflated, to dd2 gravity drainage, urine specimen collected. 22:17 CT Abd/Pelvis - IV Contrast Only In Process Unspecified. EDMS 23:33 Provided Education on: D/C EDUCATION. dd2 23:33 IV discontinued, intact, bleeding controlled, No redness/swelling at site. Pressure dd2 dressing applied. Administered Medications: 22:38 Not Given (Patient Refused): morphineor iv 2 mg IVP once over 4 mins dd2 22:38 Not Given (Patient Refused): ondansetron 4 mg IVP once; over 2 minutes dd2 22:41 Drug: Rocephin IV 1 grams IV at per protocol once; Given slow IV push per pharmacy vc1 instructions Route: IV; Rate: per protocol; Site: right antecubital; 23:11 Follow up: Response: No adverse reaction; IV Status: Completed infusion; IV Intake: dd2 100ml 22:46 Not Given (Physician Discretion): ns 0.9% 500 ml IV at bolus once; to be given as a dd2 bolus over 30 minutes Medication: 21:07 VIS not applicable for this client. dd2 Intake: 23:11 IV: 100ml; Total: 100ml. dd2 Outcome: 22:53 Discharge ordered by MD. dr5 23:33 Discharged to home via wheelchair, with family, dd2 23:33 Condition: improved 23:33 Discharge instructions given to patient, family, Instructed on discharge instructions, follow up and referral plans. medication usage, Demonstrated understanding of instructions, follow-up care, medications, Prescriptions given X 1, 23:34 Patient left the ED. dd2 Signatures: Dispatcher [employer] EDMS Lorraine Salazar, CHEN-C COURTESY BUS DRIVER-Gregoria Ahumada Nathan nj Calcote, Vanessa RN RN vc1 Susan Walton Clarissa, RN RN cm10 NANI MONTES RN RN dd2 Gautam Campbell, CATARINA [id number]
[2024-11-26 23:52] VITALS: TEMP 98.2
[2024-11-26 23:53] VITALS: BP 134/84; O2SAT 98
== END 2024-11-26 23:34 | disposition home or self-care (01) ==
LOC: ER 16:51
DX: N39.0 Urinary tract infection, site not specified (principal); T83.098A Other mechanical complication of other urinary catheter, initial encounter
CPT/HCPCS: 96365; 87088; 85025; 81001; 87086; 36415; 83690; 80053; 74177; 51702; 99285; Q9967; J0696; 87077; 87186